=== PATIENT | male | born 1945 | race Caucasian/White ===

== ENCOUNTER 2018-03-30 07:38 | Day surgery (SDC) | payer MEDICARE, BC ==
[2018-03-30] MEDS ORDERED: DIPRIVAN 200 MG/20 ML IV ONE (07:39)
[2018-03-30] MEDS ORDERED: Lactated Ringers 1,000 ML IV ONE (07:47)
[2018-03-30] MEDS ORDERED: Lactated Ringers 1,000 ML IV SCH (08:00)
[2018-03-30] MEDS ORDERED: TETRACAINE 0.5% STERI-UNIT SOL OP ONE ×2 (08:00)
[2018-03-30] MEDS ORDERED: Ak-Dilate OPHTHALMIC*** 0.71 ML, Cyclogyl 1% OPHTH SOL 5 ML 0.71 ML, GATIFLOXACIN 0.5% ... OP ONE ×4 (08:00)
[2018-03-30 08:34] VITALS: O2SAT 93
[2018-03-30] MEDS ORDERED: Zofran 4 MG/2 ML VIAL IV PRN (09:00)
[2018-03-30] MEDS ORDERED: ACETAZOLAMIDE 250 MG TABLET PO ONE (09:00)
[2018-03-30] MEDS ORDERED: BSS 500 ML, Fortaz/Tazicef 1 GM** 0.2 G IO ONE ×2 (10:00)
[2018-03-30] MEDS ORDERED: Epinephrine Preservative Free 1 MG/ML INTRAOP ONE (10:00)
[2018-03-30] MEDS ORDERED: LIDOCAINE HCL 1% AMPUL 5 ML IJ ONE (10:00)
[2018-03-30] MEDS ORDERED: BETADINE 5% OPHTHALMIC 30 ML OP ONE (10:00)
[2018-03-30 12:39] VITALS: BP 154/95; PULSE 88
--- NOTE | 2018-03-30 14:46 | OP ---
DATE/TIME OF OPERATION: 03/30/2018 1100 TIME DICTATED: 1303 PREOPERATIVE DIAGNOSIS: Senile cataract of left eye. POSTOPERATIVE DIAGNOSIS: Senile cataract of left eye. SURGEON: Ross Hardwick MD INSURANCE SALES EXECUTIVE: None. OPERATION: Cataract extraction of left eye with an intraocular lens implant. STANDARD __X___ COMPLEX ANESTHESIA: MAC. ___X___ Monitored anesthesia care in combination with topical and intra-cameral anesthesia (because of the established specific risk of reflux, arrhythmias, or an anxiety attack associated with ocular manipulation as well as difficulty of the sweatband decorating machine operator to manage such potentially catastrophic events while simultaneously attempting to complete the surgical procedure, it was deemed necessary for the patient's safety to have an anesthesiologist or a nurse legal aid present during the procedure whenever possible. The anesthesiologist or the nurse legal aid was utilized to monitor and regulate the intravenous sedation of the patient, so the patient was cooperative, relaxed, and comfortable). Topical anesthesia using Tetracaine eye drops together with intra cameral anesthesia using Lidocaine 1% MPF. The nurse was utilized to monitor the patient. ANESTHESIA PROVIDER: Pato Nova CRNA. COMPLICATIONS: None. BLOOD LOSS: None. INDICATIONS: The patient is undergoing cataract surgery in the hopes of eliminating the visual complaints and difficulty. PROCEDURE: After arriving at the facility's outpatient surgery area, an IV was started; the patient was given 5 mg of p.o. Versed. (If an anesthesia provider was not monitoring the patient) The patient was then given topical anesthetic Tetracaine eye drops. A cotton pellet was soaked into a solution of a combination of Zymaxid 0.5%, Avinash-Synephrine 2.5% and Ocufen (other drops might have been substituted referenced in the patient's record). The pellet was inserted by the RN into the lower conjunctival cul-de-sac with a sterile forceps and left for 20 minutes. The pellet was then removed by the RN with a sterile forceps before taking the patient to the operating room. The preoperative area nurse identified the patient and marked the correct eye to be operated on. I identified the correct eye to be operated on and marked it appropriately in the outpatient surgery area. The patient was then taken into the operating room. Tetracaine eye drops were installed again in the correct eye. The eyelids and the lashes and the lid margins were scrubbed with Betadine solution. One drop of the diluted Betadine solution was placed in the conjunctival cul-de-sac for 45 seconds and then was irrigated. A drop of Tetracaine Gel was placed in the conjunctival cul-de-sac. The patient's forehead was taped to secure it during the procedure. The patient was monitored. The patient was then draped in the usual way for this procedure. An eye speculum was used to separate the eyelids. The eye was then fixated and a temporal 2.5 mm incision was made in the clear cornea temporally at the limbus. Through the incision, 0.25 cc of 1% non-preserved lidocaine was injected into the anterior chamber for intracameral anesthesia. The anterior chamber was then filled with viscoelastic. The pupil was small. I felt that it would be safer to mechanically dilate the pupil. A Malyugin ring was used at this point which dilated the pupil. That was removed at the end of the procedure prior to aspiration of the viscoelastic from the anterior chamber and posterior to the intraocular lens implant. The cataract had a great amount of cortical changes. That rendered seeing the anterior capsule difficult for a safe performance of an anterior capsulotomy. I injected an air bubble into the anterior chamber. I then injected 1 ML of vision blue solution into the anterior chamber. The vision blue solution was irrigated from the anterior chamber after 30 seconds. The anterior capsule was stained which facilitated performing the anterior capsulotomy safely. After that was completed, a cystotome was introduced into the anterior chamber and a round anterior capsulotomy was performed. The capsule was removed by a forceps. Hydrodissection was next carried utilizing a 25-gauge cannula and balanced salt solution to delineate the cortical material from the capsule and the nucleus from the cortical material. The nucleus was rotated freely into the capsular bag with no difficulty. The phaco tip of the [employer] Phacoemulsifier was introduced into the anterior chamber and two grooves were made into the nucleus 90 degrees apart. Using two spatulas resulted into the nucleus being fractured into four quadrants. The phaco tip was then used to remove each quadrant of the nucleus. Viscoelastic was used during this process to protect the corneal endothelium. Once the entire nucleus was removed, the phaco tip then was removed and the irrigation tip was introduced into the eye and the cortex was removed. The posterior capsule was polished. It was noticed that there was a tear into the posterior capsule with few vitreous strands into the pupil plan. An anterior vitrectomy was performed. A 16.50 diopter, SN60WF, posterior chamber lens implant, was inspected and found to be grossly normal. The implant was inserted into the implant injector cartridge; Viscoelastic again was introduced into the anterior chamber, which filled the capsular bag. The implant injector's cartridge tip was placed at the limbal wound and the posterior chamber implant was released into the capsular bag and rotated appropriately. The implant was found to be into the capsular bag and it was centered. __X___ 0.2 ml of Tri-Moxi was introduced via 27 gauge cannula into the vitreous cavity through the ciliary processes. Viscoelastic was aspirated from the anterior chamber and posterior to the intraocular lens implant from the capsular bag using the irrigating tip. The anterior chamber was irrigated and filled with 5 cc antibiotic solution (500 cc of BSS plus 2 ml of Fortaz 100 mg/ml) ( if patient was not allergic to the medication). The lips of the corneal incision were hydrated using BSS solution. The anterior chamber was checked and found to be water tight. One drop each of antibiotic, steroid and NSAID drops (refer to chart for drops used) were placed in the conjunctival cul-de-sac of the operated eye. Patient tolerated the procedure quite well and left the operating room in satisfactory condition. DISCHARGE SUMMARY: The patient was released in stable condition. The patient and those with the patient were given an instruction sheet as of how to care for the eye after surgery as well as counseling on any abnormal laboratory studies by the postoperative RN. The patient was also given an appointment card for follow-up in the office and is to call immediately for any difficulties including but not limited to pain in the eye, decreased vision, discharge from the eye, headache and or fever. DISCHARGE DIAGNOSIS: Pseudophakia of left eye.
== END 2018-03-30 12:30 | disposition home or self-care (01) ==
LOC: SDC 07:38
PROVIDERS: ATTEND Ophthalmology
DX: I50.9 Heart failure, unspecified (principal); J44.9 Chronic obstructive pulmonary disease, unspecified; I51.9 Heart disease, unspecified; E78.00 Pure hypercholesterolemia, unspecified; Z79.899 Other long term (current) drug therapy
CPT/HCPCS: 66984; 67005; 94250; C1780; 99100; J0171; J2704; A9270-GY

== ENCOUNTER 2018-04-27 07:23 | Day surgery (SDC) | payer MEDICARE, BC ==
[~2018-04-27 07:23] MED LIST: Lactated Ringers 1,000 ML IV ONE
[2018-04-27] MEDS ORDERED: DIPRIVAN 200 MG/20 ML IV ONE (07:24)
[2018-04-27] MEDS ORDERED: TETRACAINE 0.5% STERI-UNIT SOL OP ONE ×2 (08:00)
[2018-04-27] MEDS ORDERED: Lactated Ringers 1,000 ML IV SCH (08:00)
[2018-04-27] MEDS ORDERED: Ak-Dilate OPHTHALMIC*** 0.71 ML, Cyclogyl 1% OPHTH SOL 5 ML 0.71 ML, GATIFLOXACIN 0.5% ... OP ONE ×4 (08:00)
[2018-04-27] MEDS ORDERED: BETADINE 5% OPHTHALMIC 30 ML OP ONE (09:00)
[2018-04-27] MEDS ORDERED: Zofran 4 MG/2 ML VIAL IV PRN (09:00)
[2018-04-27] MEDS ORDERED: ACETAZOLAMIDE 250 MG TABLET PO ONE (09:00)
[2018-04-27] MEDS ORDERED: Epinephrine Preservative Free 1 MG/ML INTRAOP ONE (09:30)
[2018-04-27] MEDS ORDERED: BSS 500 ML, Fortaz/Tazicef 1 GM** 0.2 G IO ONE ×2 (09:30)
[2018-04-27] MEDS ORDERED: LIDOCAINE HCL 1% AMPUL 5 ML IJ ONE (09:30)
[2018-04-27 11:50] VITALS: PULSE 82
[2018-04-27 11:51] VITALS: BP 168/88; O2SAT 98
--- NOTE | 2018-04-27 13:46 | OP ---
DATE/TIME OF OPERATION: 04/27/2018 0954 TIME DICTATED: 1255 PREOPERATIVE DIAGNOSIS: Senile cataract of right eye. POSTOPERATIVE DIAGNOSIS: Senile cataract of right eye. SURGEON: Ross Hardwick MD CRIMINAL INTELLIGENCE ANALYST: None. OPERATION: Cataract extraction of right eye with an intraocular lens implant. STANDARD __X___ COMPLEX ANESTHESIA: MAC. ___X__ Monitored anesthesia care in combination with topical and intra-cameral anesthesia (because of the established specific risk of reflux, arrhythmias, or an anxiety attack associated with ocular manipulation as well as difficulty of the superintendent distribution to manage such potentially catastrophic events while simultaneously attempting to complete the surgical procedure, it was deemed necessary for the patient's safety to have an anesthesiologist or a nurse crate repairer present during the procedure whenever possible. The anesthesiologist or the nurse crate repairer was utilized to monitor and regulate the intravenous sedation of the patient, so the patient was cooperative, relaxed, and comfortable). Topical anesthesia using Tetracaine eye drops together with intra cameral anesthesia using Lidocaine 1% MPF. The nurse was utilized to monitor the patient. ANESTHESIA PROVIDER: Darin Mancilla CRNA. COMPLICATIONS: None. BLOOD LOSS: None. INDICATIONS: The patient is undergoing cataract surgery in the hopes of eliminating the visual complaints and difficulty. PROCEDURE: After arriving at the facility's outpatient surgery area, an IV was started; the patient was given 5 mg of p.o. Versed. (If an anesthesia provider was not monitoring the patient) The patient was then given topical anesthetic Tetracaine eye drops. A cotton pellet was soaked into a solution of a combination of Zymaxid 0.5%, Avinash-Synephrine 2.5% and Ocufen (other drops might have been substituted referenced in the patient's record). The pellet was inserted by the RN into the lower conjunctival cul-de-sac with a sterile forceps and left for 20 minutes. The pellet was then removed by the RN with a sterile forceps before taking the patient to the operating room. The preoperative area nurse identified the patient and marked the correct eye to be operated on. I identified the correct eye to be operated on and marked it appropriately in the outpatient surgery area. The patient was then taken into the operating room. Tetracaine eye drops were installed again in the correct eye. The eyelids and the lashes and the lid margins were scrubbed with Betadine solution. One drop of the diluted Betadine solution was placed in the conjunctival cul-de-sac for 45 seconds and then was irrigated. A drop of Tetracaine Gel was placed in the conjunctival cul-de-sac. The patient's forehead was taped to secure it during the procedure. The patient was monitored. The patient was then draped in the usual way for this procedure. An eye speculum was used to separate the eyelids. The eye was then fixated and a temporal 2.5 mm incision was made in the clear cornea temporally at the limbus. Through the incision, 0.25 cc of 1% non-preserved lidocaine was injected into the anterior chamber for intracameral anesthesia. The anterior chamber was then filled with viscoelastic. The pupil was small. I felt that it would be safer to mechanically dilate the pupil. A Malyugin ring was used at this point which dilated the pupil. That was removed at the end of the procedure prior to aspiration of the viscoelastic from the anterior chamber and posterior to the intraocular lens implant. The cataract had a great amount of cortical changes. That rendered seeing the anterior capsule difficult for a safe performance of an anterior capsulotomy. I injected an air bubble into the anterior chamber. I then injected 1 ML of vision blue solution into the anterior chamber. The vision blue solution was irrigated from the anterior chamber after 30 seconds. The anterior capsule was stained which facilitated performing the anterior capsulotomy safely. After that was completed, a cystotome was introduced into the anterior chamber and a round anterior capsulotomy was performed. The capsule was removed by a forceps. Hydrodissection was next carried utilizing a 25-gauge cannula and balanced salt solution to delineate the cortical material from the capsule and the nucleus from the cortical material. The nucleus was rotated freely into the capsular bag with no difficulty. The phaco tip of the [employer] Phacoemulsifier was introduced into the anterior chamber and two grooves were made into the nucleus 90 degrees apart. Using two spatulas resulted into the nucleus being fractured into four quadrants. The phaco tip was then used to remove each quadrant of the nucleus. Viscoelastic was used during this process to protect the corneal endothelium. Once the entire nucleus was removed, the phaco tip then was removed and the irrigation tip was introduced into the eye and the cortex was removed. The posterior capsule was polished. It was noticed that there was a tear into the posterior capsule with few vitreous strands into the pupil plan. An anterior vitrectomy was performed. A 16.00 diopter, SN60WF, posterior chamber lens implant, was inspected and found to be grossly normal. The implant was inserted into the implant injector cartridge; Viscoelastic again was introduced into the anterior chamber, which filled the capsular bag. The implant injector's cartridge tip was placed at the limbal wound and the posterior chamber implant was released into the capsular bag and rotated appropriately. The implant was found to be into the capsular bag and it was centered. __X_ 0.2 ml of Tri-Moxi was introduced via 27 gauge cannula into the vitreous cavity through the ciliary processes. Viscoelastic was aspirated from the anterior chamber and posterior to the intraocular lens implant from the capsular bag using the irrigating tip. The anterior chamber was irrigated and filled with 5 cc antibiotic solution (500 cc of BSS plus 2 ml of Fortaz 100 mg/ml) ( if patient was not allergic to the medication). The lips of the corneal incision were hydrated using BSS solution. The anterior chamber was checked and found to be water tight. One drop each of antibiotic, steroid and NSAID drops (refer to chart for drops used) were placed in the conjunctival cul-de-sac of the operated eye. Patient tolerated the procedure quite well and left the operating room in satisfactory condition. DISCHARGE SUMMARY: The patient was released in stable condition. The patient and those with the patient were given an instruction sheet as of how to care for the eye after surgery as well as counseling on any abnormal laboratory studies by the postoperative RN. The patient was also given an appointment card for follow-up in the office and is to call immediately for any difficulties including but not limited to pain in the eye, decreased vision, discharge from the eye, headache and or fever. DISCHARGE DIAGNOSIS: Pseudophakia of right eye.
== END 2018-04-27 11:40 | disposition home or self-care (01) ==
LOC: SDC 07:23
PROVIDERS: ATTEND Ophthalmology
DX: H25.9 Unspecified age-related cataract (principal); I50.9 Heart failure, unspecified; J44.9 Chronic obstructive pulmonary disease, unspecified; I51.9 Heart disease, unspecified; E78.00 Pure hypercholesterolemia, unspecified; I10 Essential (primary) hypertension; E07.9 Disorder of thyroid, unspecified; Z79.899 Other long term (current) drug therapy
CPT/HCPCS: 66984; 67005; 82962; 94250; C1780; 99100; J0171; J2704; A9270-GY

== ENCOUNTER 2021-06-21 10:14 | Inpatient (IN) | payer MEDICARE, BC ==
--- NOTE | 2021-06-21 10:32 | ERPHSYRPT ---
- History of Present Illness Time Seen by Provider: 06/21/21 10:29 Historian: patient Exam Limitations: clinical condition Patient Subjective Stated Complaint: EMS states "He is normally alert and talkative, today he is not, he had blood in his stool last night and a nose bleed this morning." Triage Nursing Assessment: Pt presented alert and oriented < 3, skin pale, pt alert X 2. PT knows his name and where he is but not what month it is. Pt l ethargic, able to speak in clear partial sentences. Physician History: Patient is a 76-year-old male who presents with a history from the senior care of having a large bloody bowel movement last night and then he had epistaxis this morning which has stopped. He is also been very confused over his baseline. He does have a previous history of a CVA. His only medication that would possible be considered a anticoagulant is Plavix which was held last night. Timing/Duration: yesterday Activities at Onset: none Modifying Factors: Improves With: defecating Allergies/Adverse Reactions: polyurethane Allergy (Severe, Uncoded 04/14/18 15:47) Rash raw apples Allergy (Severe, Uncoded 04/14/18 15:47) paralysis neoprene Allergy (Intermediate, Uncoded 04/14/18 15:47) rash tb tests Allergy (Intermediate, Uncoded 04/27/18 08:17) bee stings Allergy (Unknown, Uncoded 04/27/18 08:17) Home Medications: Acetaminophen [Acetaminophen Extra Strength] 1,000 mg PO Q4HPRN PRN 11/02/12 [History] Allopurinol 300 mg [Zyloprim 300 mg] 300 mg PO DAILY 11/02/12 [History] Aspirin EC 325 mg [Ecotrin 325 MG] 325 mg PO DAILY 11/02/12 [History] Budesonide/Formoterol Fumarate [Symbicort 160-4.5 Mcg Inhaler] 2 puff IH BID 11/02/12 [History] Clopidogrel Bisulfate 75 mg [PLAVIX 75 MG Tablet] 75 mg PO DAILY 11/02/12 [History] Docusate Sodium 100 mg [Colace 100 MG] 100 mg PO TID 11/02/12 [History] Fenofibrate,Micronized [Tricor] 134 mg PO DAILY 11/02/12 [History] Folic Acid 1 mg [Folate 1 mg] 1 mg PO DAILY 11/02/12 [History] Guaifenesin Dextromethorphan [MUCINEX Dm 600/30MG] 1 tablet PO HS 11/02/12 [History] Isosorbide Mononitrate 60 mg [Imdur 60MG] 60 mg PO BID 11/02/12 [History] Modafinil [Provigil] 200 mg PO QAM 11/02/12 [History] Ono-3/Dha/Epa/Fish Oil [Fish Oil 1,000 mg Softgel] 1 each PO TID 11/02/12 [History] Potassium Chloride 20 Meq [Klor-Con 20 MEQ] 20 meq PO BID 11/02/12 [History] Primidone [Mysoline] 100 mg PO TID 11/02/12 [History] Repaglinide [Prandin 2MG Tablet] 2 mg PO TID 11/02/12 [History] Sertraline HCl [Zoloft] 100 mg PO BID 11/02/12 [History] Sulfasalazine [Azulfidine] 1,500 mg PO BID 11/02/12 [History] Atorvastatin Calcium 80 mg PO HS 03/17/18 [History] Bumetanide 2 mg PO BID 03/17/18 [History] Cyanocobalamin (Vitamin B-12) [Vitamin B-12] 1,000 mcg PO DAILY 03/17/18 [ History] Levothyroxine Sodium 75 Mcg [Synthroid 75 Mcg] 75 mcg PO DAILY 03/17/18 [History] Loratadine 10 mg [Claritin 10 mg] 10 mg PO DAILY 03/17/18 [History] Metolazone 2.5 mg [Zaroxolyn 2.5 MG] 2.5 mg PO UD 03/17/18 [History] Metoprolol Tartrate 25 mg [Lopressor 25MG Tab] 25 mg PO BID 03/17/18 [History] Nitroglycerin 0.4 mg (Ed) [Nitrostat 0.4 MG (ED)] 0.4 mg SL UD 03/17/18 [History] Oxybutynin Chloride 5 mg PO TID 03/17/18 [History] Tamsulosin HCl 0.4 mg [Flomax 0.4 MG] 0.4 mg PO DAILY 03/17/18 [History] Glipizide 5 mg [Glucotrol 5 MG] 1 tablet PO BID 04/27/18 [History] Cholecalciferol (Vitamin D3) [Vitamin D] 1,000 unit PO DAILY 05/16/21 [Hist ory] Fluticasone Propionate [Flonase NASAL] 16 gm NS DAILY 05/16/21 [History] Lorazepam 0.5 mg [Ativan 0.5 MG] 0.5 mg PO BID 05/16/21 [History] Mineral Oil/Petrolatum,White [[facility] Overnight Lubricating Eye] 3.5 gm OP HS 05/16/21 [History] Omeprazole 20 mg PO DAILY 05/16/21 [History] Propylene Glycol/Peg 400 [[facility] Lubricating Tears Eye Drops] 15 ml OP UD 05/16/21 [History] Psyllium Seed [Psyllium] 390 gm PO DAILY 05/16/21 [History] Testosterone Cypionate [Depo-Testosterone] 200 mg IM UD 05/16/21 [History] Hx Tetanus, Diphtheria Vaccination/Date Given: Yes (UP TO DATE) Hx Influenza Vaccination/Date Given: No Hx Pneumococcal Vaccination/Date Given: No Immunizations Up to Date: Yes Travel Risk - International Travel Have you traveled outside of the country in past 3 weeks: No - Coronavirus Screening Are you exhibiting any of the following symptoms?: No Close contact with a COVID-19 positive Pt in past 14-21 Days: No - Vaccine Status Have you recieved a Covid-19 vaccination: (unknown) - Review of Systems Constitutional: No Fever, No Chills Eyes: No Symptoms Ears, Nose, & Throat: Epistaxis Respiratory: No Cough, No Dyspnea Cardiac: No Chest Pain, No Edema, No Syncope Abdominal/Gastrointestinal: Hematochezia, No Abdominal Pain, No Nausea, No Vo miting, No Diarrhea Genitourinary Symptoms: No Dysuria Musculoskeletal: No Back Pain, No Neck Pain Skin: No Rash Neurological: No Dizziness, No Focal Weakness, No Sensory Changes Psychological: No Symptoms Endocrine: No Symptoms All Other Systems: Reviewed and Negative - Past Medical History Pertinent Past Medical History: Yes Neurological History: Stroke ENT History: Cataracts Cardiac History: Arrhythmia, Congestive Heart Failure, Coronary Artery Disease, Deep Vein Thrombosis, High Cholesterol, Hypertension, Myocardial Infarction ([place]), Other Respiratory History: Asthma, CHF, COPD, Emphysema, Sleep Apnea Endocrine Medical History: Diabetes Type I, Diabetes Type II, Hypothyroidism Musculoskeletal History: Arthritis, Osteoarthritis GI Medical History: Crohns Disease, Diverticulitis, GERD History: Other Psycho-Social History: Anxiety Male Reproductive Disorders: Other Other Medical History: ruptured aorta during PTCA. DVT in s, Occassional PVC's Pt has sleep apnea but doesn't wear his cpap. Pt wears 4L n/c at night. NIDDM.Pt checks his blood sugar every 2-3 days. - Past Surgical History Past Surgical History: Yes Neuro Surgical History: No Pertinent History Cardiac: Angioplasty, Cardiac Catheterization, Cardiac Stent, Vascular Surgery, Other Respiratory: No Pertinent History Gastrointestinal: No Pertinent History Genitourinary: No Pertinent History Musculoskeletal: Amputation Male Surgical History: No Pertinent History Other Surgical History: [facility] Right carotid endartectomy, PTCA, Ruptured aorta, [place] when aorta ruptured and pt also had a stroke at that time in 1995 Pt has had 17 minor and major surgeries to his left leg prior to his amputation. Hx of skin cancer to left elbow. Pt has had 3 cardiac stents placed at 3 different times for a total of 9 cardiac stents. Cataract surgery left eye - Social History Smoking Status: Never smoker How long have you smoked: 3 years Exposure to second hand smoke: No Drug Use: none Patient Lives Alone: No - Nursing Vital Signs Nursing Vital Signs: Initial Vital Signs Temperature 97.8 F 06/21/21 10:15 Pulse Rate 98 H 06/21/21 10:15 Respiratory Rate 20 06/21/21 10:15 Blood Pressure 113/62 06/21/21 10:15 O2 Sat by Pulse Oximetry 98 06/21/21 10:15 Pain Scale Pain Intensity 4 - Physical Exam General Appearance: mild distress, alert Eye Exam: PERRL/EOMI, eyes nml inspection Ears, Nose, Throat Exam: normal ENT inspection, pharynx normal, moist mucous membranes Neck Exam: normal inspection, non-tender, supple, full range of motion Respiratory Exam: normal breath sounds, lungs clear, No respiratory distress Cardiovascular Exam: regular rate/rhythm, normal heart sounds Gastrointestinal/Abdomen Exam: soft, No tenderness, No mass Back Exam: normal inspection, normal range of motion, No CVA tenderness, No vertebral tenderness Extremity Exam: normal inspection, normal range of motion, pelvis stable Neurologic Exam: alert, cooperative, normal mood/affect, nml cerebellar function, sensation nml, disoriented, confusion, dysarthria, No motor deficits Skin Exam: normal color, warm, dry SpO2 Interpretation: normal SpO2: 98 O2 Delivery: Room Air - Course Nursing assessment & vital signs reviewed: Yes EKG Interpreted by Me: RATE (96), Sinus Rhythm, Right Bundle Branch Block, Non- specific ST Changes - Radiology Exams Chest X-ray Interpretation: Reviewed by me - CT Exams Abdomen/Pelvis CT Interpretation: Tele-radiologist Report Head CT Interpretation: Other (Nonacute senile brain) Ordered Tests: Active Orders 24 hr Category Date Time Status EKG-ER Only STAT Care 06/21/21 10:20 Active Scott [Catheter-[place] Scott] STAT Care 06/21/21 10:42 Active IV Insertion STAT Care 06/21/21 10:17 Active ABDOMEN AND PELVIS W/0 CONTRAS [CT] Stat Exams 06/21/21 10:18 Completed CHEST 1 VIEW (PORTABLE) Stat Exams 06/21/21 10:18 Completed HEAD WITHOUT CONTRAST [CT] Stat Exams 06/21/21 10:27 Completed AMYLASE Stat Lab 06/21/21 10:34 Completed CBC W DIFF Stat Lab 06/21/21 10:34 Completed CMP Stat Lab 06/21/21 10:34 Completed CULTURE,URINE Stat Lab 06/21/21 10:43 Received FECAL OCCULT BLOOD - SCREENING Stat Lab 06/21/21 10:18 Ordered LIPASE Stat Lab 06/21/21 10:34 Completed Lactic Acid Stat Lab 06/21/21 10:17 Completed PROTIME WITH INR Stat Lab 06/21/21 10:34 Completed PTT Stat Lab 06/21/21 10:34 Completed TROPONIN Q3H Lab 06/21/21 10:34 Completed TROPONIN Q3H Lab 06/21/21 13:30 Ordered TROPONIN Q3H Lab 06/21/21 16:30 Ordered TROPONIN Q3H Lab 06/21/21 19:30 Ordered TROPONIN Q3H Lab 06/21/21 22:30 Ordered TSH [TSH, 3RD Generation] Stat Lab 06/21/21 10:34 Completed UA W/RFX UR CULTURE Stat Lab 06/21/21 10:43 Completed Medication Summary Generic Name Dose Route Start Last Admin Trade Name Gabe PRN Reason Stop Dose Admin Sodium Chloride 1,000 mls @ 100 mls/hr 06/21/21 10:30 06/21/21 10:37 Sodium Chloride 0.9% 1000 Ml IV 07/21/21 10:29 100 mls/hr .Q10H MIN Administration Lab/Rad Data: Laboratory Result Diagrams 06/21/21 10:34 06/21/21 10:34 Laboratory Results 06/21/21 06/21/21 06/21/21 Range/Units 10:43 10:34 10:34 WBC (4.0-10.5) K/mm3 RBC (4.1-5.6) M/mm3 Hgb (12.5-18.0) gm/dl Hct (42-50) % MCV (78-100) fl MCH (26-32) pg MCHC (32-36) g/dl RDW (11.5-14.0) % Plt Count (150-450) K/mm3 MPV (7.5-11.0) fl Gran % (36.0-66.0) % Eos # (Auto) (0-0.5) Absolute Lymphs (auto) (1.0-4.6) Absolute Monos (auto) (0.0-1.3) Lymphocytes % (24.0-44.0) % Monocytes % (0.0-12.0) % Eosinophils % (0.00-5.0) % Basophils % (0.0-0.4) % Absolute Granulocytes (1.4-6.9) Basophils # (0-0.4) PT (9.4-12.5) SECONDS INR (0.8-3.0) APTT (25.1-36.5) SECONDS Sodium (137-145) mmol/L Potassium (3.5-5.1) mmol/L Chloride (98-107) mmol/L Carbon Dioxide (22-30) mmol/L Anion Gap (5-15) MEQ/L BUN (9-20) mg/dL Creatinine (0.66-1.25) mg/dL Estimated GFR ML/MIN Glucose (74-106) mg/dL Lactic Acid (0.4-2.0) Calcium (8.4-10.2) mg/dL Total Bilirubin (0.2-1.3) mg/dL AST (17-59) U/L ALT (0-50) U/L Alkaline Phosphatase (38-126) U/L Troponin I 0.098 H* (0.000-0.034) ng/mL Serum Total Protein (6.3-8.2) g/dL Albumin (3.5-5.0) g/dL Amylase (30-110) U/L Lipase (23-300) U/L TSH 3rd Generation 2.480 (0.47-4.68) mIU/L Urine Color GEMA (YELLOW) Urine Appearance SLIGHTLY CLOUDY (CLEAR) Urine pH 5.0 (5-6) Ur Specific [place] 1.012 (1.005-1.025) Urine Protein 30 (Negative) Urine Ketones NEGATIVE (NEGATIVE) Urine Blood SMALL (0-5) Oc/ul Urine Nitrite POSITIVE (NEGATIVE) Urine Bilirubin NEGATIVE (NEGATIVE) Urine Urobilinogen NEGATIVE (0-1) mg/dL Ur Leukocyte Esterase TRACE (NEGATIVE) Urine WBC (Auto) 6-10 (0-5) /HPF Urine RBC (Auto) NONE (0-2) /HPF U Hyaline Cast (Auto) 11-25 (0-2) /LPF U Epithel Cells (Auto) NONE (FEW) /HPF Urine Bacteria (Auto) MODERATE (NEGATIVE) /HPF Granular Casts (Auto) 10-25 (NEGATIVE) /LPF Urine Mucus (Auto) SLIGHT (NEGATIVE) /HPF Urine Culture Reflexed YES (NO) Urine Glucose 50 (NEGATIVE) mg/dL 06/21/21 06/21/21 06/21/21 Range/Units 10:34 10:34 10:34 WBC (4.0-10.5) K/mm3 RBC (4.1-5.6) M/mm3 Hgb (12.5-18.0) gm/dl Hct (42-50) % MCV (78-100) fl MCH (26-32) pg MCHC (32-36) g/dl RDW (11.5-14.0) % Plt Count (150-450) K/mm3 MPV (7.5-11.0) fl Gran % (36.0-66.0) % Eos # (Auto) (0-0.5) Absolute Lymphs (auto) (1.0-4.6) Absolute Monos (auto) (0.0-1.3) Lymphocytes % (24.0-44.0) % Monocytes % (0.0-12.0) % Eosinophils % (0.00-5.0) % Basophils % (0.0-0.4) % Absolute Granulocytes (1.4-6.9) Basophils # (0-0.4) PT 19.8 H (9.4-12.5) SECONDS INR 1.68 (0.8-3.0) APTT 34.5 (25.1-36.5) SECONDS Sodium 130 L (137-145) mmol/L Potassium 3.4 L (3.5-5.1) mmol/L Chloride 85 L (98-107) mmol/L Carbon Dioxide 22 (22-30) mmol/L Anion Gap 25.9 H (5-15) MEQ/L BUN 111 H (9-20) mg/dL Creatinine 2.54 H (0.66-1.25) mg/dL Estimated GFR 26.4 ML/MIN Glucose 273 H (74-106) mg/dL Lactic Acid (0.4-2.0) Calcium 9.2 (8.4-10.2) mg/dL Total Bilirubin 0.70 (0.2-1.3) mg/dL AST 50 (17-59) U/L ALT 20 (0-50) U/L Alkaline Phosphatase 123 (38-126) U/L Troponin I (0.000-0.034) ng/mL Serum Total Protein 7.9 (6.3-8.2) g/dL Albumin 4.2 (3.5-5.0) g/dL Amylase 606 H (30-110) U/L Lipase 6714 H (23-300) U/L TSH 3rd Generation (0.47-4.68) mIU/L Urine Color (YELLOW) Urine Appearance (CLEAR) Urine pH (5-6) Ur Specific [place] (1.005-1.025) Urine Protein (Negative) Urine Ketones (NEGATIVE) Urine Blood (0-5) Oc/ul Urine Nitrite (NEGATIVE) Urine Bilirubin (NEGATIVE) Urine Urobilinogen (0-1) mg/dL Ur Leukocyte Esterase (NEGATIVE) Urine WBC (Auto) (0-5) /HPF Urine RBC (Auto) (0-2) /HPF U Hyaline Cast (Auto) (0-2) /LPF U Epithel Cells (Auto) (FEW) /HPF Urine Bacteria (Auto) (NEGATIVE) /HPF Granular Casts (Auto) (NEGATIVE) /LPF Urine Mucus (Auto) (NEGATIVE) /HPF Urine Culture Reflexed (NO) Urine Glucose (NEGATIVE) mg/dL 06/21/21 06/21/21 Range/Units 10:34 10:17 WBC 12.6 H (4.0-10.5) K/mm3 RBC 3.16 L (4.1-5.6) M/mm3 Hgb 11.0 L (12.5-18.0) gm/dl Hct 33.2 L (42-50) % MCV 105.1 H (78-100) fl MCH 34.8 H (26-32) pg MCHC 33.1 (32-36) g/dl RDW 13.8 (11.5-14.0) % Plt Count 253 (150-450) K/mm3 MPV 12.2 H (7.5-11.0) fl Gran % 84.3 H (36.0-66.0) % Eos # (Auto) 0.21 (0-0.5) Absolute Lymphs (auto) 1.00 (1.0-4.6) Absolute Monos (auto) 0.75 (0.0-1.3) Lymphocytes % 7.9 L (24.0-44.0) % Monocytes % 5.9 (0.0-12.0) % Eosinophils % 1.7 (0.00-5.0) % Basophils % 0.2 (0.0-0.4) % Absolute Granulocytes 10.63 H (1.4-6.9) Basophils # 0.02 (0-0.4) PT (9.4-12.5) SECONDS INR (0.8-3.0) APTT (25.1-36.5) SECONDS Sodium (137-145) mmol/L Potassium (3.5-5.1) mmol/L Chloride (98-107) mmol/L Carbon Dioxide (22-30) mmol/L Anion Gap (5-15) MEQ/L BUN (9-20) mg/dL Creatinine (0.66-1.25) mg/dL Estimated GFR ML/MIN Glucose (74-106) mg/dL Lactic Acid 1.8 (0.4-2.0) Calcium (8.4-10.2) mg/dL Total Bilirubin (0.2-1.3) mg/dL AST (17-59) U/L ALT (0-50) U/L Alkaline Phosphatase (38-126) U/L Troponin I (0.000-0.034) ng/mL Serum Total Protein (6.3-8.2) g/dL Albumin (3.5-5.0) g/dL Amylase (30-110) U/L Lipase (23-300) U/L TSH 3rd Generation (0.47-4.68) mIU/L Urine Color (YELLOW) Urine Appearance (CLEAR) Urine pH (5-6) Ur Specific [place] (1.005-1.025) Urine Protein (Negative) Urine Ketones (NEGATIVE) Urine Blood (0-5) Oc/ul Urine Nitrite (NEGATIVE) Urine Bilirubin (NEGATIVE) Urine Urobilinogen (0-1) mg/dL Ur Leukocyte Esterase (NEGATIVE) Urine WBC (Auto) (0-5) /HPF Urine RBC (Auto) (0-2) /HPF U Hyaline Cast (Auto) (0-2) /LPF U Epithel Cells (Auto) (FEW) /HPF Urine Bacteria (Auto) (NEGATIVE) /HPF Granular Casts (Auto) (NEGATIVE) /LPF Urine Mucus (Auto) (NEGATIVE) /HPF Urine Culture Reflexed (NO) Urine Glucose (NEGATIVE) mg/dL - Progress Progress: unchanged Discussed with : Michelle Will see patient in: hospital (full admit) - Departure Departure Disposition: Home Clinical Impression: Urinary tract infection, Chronic kidney disease, Altered mental status, Serum lipase elevation, Elevated troponin, Gastrointestinal bleeding, Epistaxis Condition: Critical Critical Care Time: Yes Critical Care Time(excluding separately billable procedures): Critical 30-74 mins (55) Referrals: NAVID RONQUILLO [Primary Care Provider] - Follow up/PCP as directed
[2021-06-21] MEDS: Sodium Chloride 0.9% 1000 ML 1,000 ML IV SCH ×2 (10:37→17:51)
[2021-06-21 10:53] LABS: INR 1.68 (0.8-3.0); PROTIME 19.8 SECONDS (9.4-12.5)
[2021-06-21 10:56] LABS: PTT 34.5 SECONDS (25.1-36.5)
[2021-06-21 10:56] LABS: Appearance SLIGHTLY CLOUDY (CLEAR); Bacteria MODERATE /HPF (NEGATIVE); Bilirubin NEGATIVE (NEGATIVE); Blood SMALL Ery/ul (0-5); Glucose 50 mg/dL (NEGATIVE); Ketones NEGATIVE (NEGATIVE); Leukocyte Esterase TRACE (NEGATIVE); Mucus SLIGHT /HPF (NEGATIVE); Nitrite POSITIVE (NEGATIVE); Protein,Urine Dip 30 (Negative); Specific Gravity 1.012 (1.005-1.025); Urobilinogen NEGATIVE mg/dL (0-1)
[2021-06-21 11:02] LABS: Absolute Neutrophil Ct (ANC) 10.63 (1.4-6.9); BASOPHIL % 0.2 % (0.0-0.4); Basophil (Absolute #) 0.02 (0-0.4); Eosinophil % 1.7 % (0.00-5.0); Eosinophil (Absolute #) 0.21 (0-0.5); Hematocrit 33.2 % (42-50); Lymphocytes % 7.9 % (24.0-44.0); Mean Cell Volume 105.1 fl (78-100); Mean Corpuscular Hemoglobin 34.8 pg (26-32); Mean Corpuscular Hgb Concent. 33.1 g/dl (32-36); Mean Platelet Volume 12.2 fl (7.5-11.0); Monocyte (Absolute #) 0.75 (0.0-1.3); Monocytes % 5.9 % (0.0-12.0); Neutrophil % 84.3 % (36.0-66.0); Platelet Count 253 K/mm3 (150-450); Red Blood Count 3.16 M/mm3 (4.1-5.6); Red Cell Distribution Width 13.8 % (11.5-14.0); White Blood Count 12.6 K/mm3 (4.0-10.5)
[2021-06-21 11:12] LABS: AMYLASE 606 U/L (30-110)
[2021-06-21 11:25] LABS: ALBUMIN 4.2 g/dL (3.5-5.0); ANION GAP 25.9 MEQ/L (5-15); BILIRUBIN,TOTAL 0.7 mg/dL (0.2-1.3); Calcium 9.2 mg/dL (8.4-10.2); Creatinine 1 2.54 mg/dL (0.66-1.25); EST GLOMERULAR FILTRATION RATE 26.4 ML/MIN; Potassium 3.4 mmol/L (3.5-5.1); Total Protein 7.9 g/dL (6.3-8.2)
[2021-06-21 11:29] LABS: LIPASE 6714 U/L (23-300)
--- NOTE | 2021-06-21 11:34 | XRAY ---
Indication: Altered mental status. Multiple contiguous axial images obtained through the head without contrast. Comparison: December 23, 2012. Again age-appropriate global atrophy with now mild periventricular degenerative micro-ischemia bilaterally. No acute intracranial hemorrhage, abnormal extra-axial fluid collection, or mass effect. Fourth ventricle is midline without hydrocephalus. Bony calvarium intact. Visualized paranasal sinuses and mastoid air cells are clear. Impression: Nonacute senile brain.
--- NOTE | 2021-06-21 11:35 | XRAY ---
Indication: Abdomen pain. UTI. Multiple contiguous axial images obtained through the abdomen and pelvis without contrast. Comparison: June 27, 2014. Patient's arms now produces mild Beam artifact. Lung bases now demonstrates moderate bibasilar subsegmental atelectasis/scarring. No focal infiltrate or effusion. Heart not enlarged. There is now mild left hemidiaphragm elevation. Noncontrasted stomach and bowel loops appear nonobstructed with normal appendix. Again mild diffuse scattered colonic fecal debris throughout and descending/sigmoid diverticulosis. Urinary bladder is empty with again Scott balloon catheter in situ. No free fluid/air. Remaining liver, gallbladder, pancreas, spleen, adrenal glands, kidneys, and ureters are unremarkable for noncontrast exam. Again moderate scattered aortoiliac calcifications without AAA. Osseous structures intact again with mild osteopenia, mild/moderate degenerative changes throughout the spine, and mild/moderate degenerative changes of both hips. Impression: 1. Beam artifact from patient's arms. 2. New mild left hemidiaphragm elevation. Phrenic nerve paralysis not completely excluded in the right clinical setting. 3. Again diffuse fecal stasis, colonic diverticulosis, Scott catheter in situ, and chronic bony findings.
--- NOTE | 2021-06-21 11:37 | XRAY ---
Indication: Abdomen pain. Comparison: November 02, 2012. Portable chest demonstrates new left base subsegmental atelectasis/scarring. Remaining heart and lungs unremarkable again with incidental CABG. Bony thorax intact again with osteopenia and degenerative changes.
[2021-06-21 11:54] LABS: ABO TYPING O; Antibody Screen NEGATIVE (NEGATIVE); RH TYPING POSITIVE
[2021-06-21] MEDS ORDERED: ROCEPHIN 1 Gm-D5w 50 ml Bag** 1 G/50 ML IVPB IV ONE ×2 (12:03→12:05)
[2021-06-21] MEDS ORDERED: Zofran 4 MG/2 ML VIAL IV PRN (12:05)
[2021-06-21] MEDS ORDERED: Sodium Chloride 0.9% 1000 ML 1,000 ML IV SCH (12:15)
[2021-06-21 12:57] LABS: INFLUENZA A NEGATIVE (NEGATIVE); INFLUENZA B NEGATIVE (NEGATIVE); RESPIRATORY SYNCTIAL VIRUS NEGATIVE (Negative); SARS-CoV-2 Xpert Express NEGATIVE (NEGATIVE)
[2021-06-21] MEDS ORDERED: TYLENOL 325 MG PO PRN (15:46)
[2021-06-21] MEDS ORDERED: Ativan 0.5 MG PO PRN (15:46)
[2021-06-21] MEDS ORDERED: NON-FORMULARY ITEM (Propylene Glycol/Peg 400 [Systane 0.3-0.4% Eye Drops] 15 ML Drops) OP PRN (15:46)
[2021-06-21] MEDS ORDERED: DARIFENACIN HYDROBROMIDE 15 MG PO PRN (15:46)
[2021-06-21] MEDS ORDERED: Nitrostat 0.4 MG (ED) SL SCH (16:00)
[2021-06-21] MEDS: AZULFIDINE 500 MG PO SCH ×2 (16:19→22:35)
[2021-06-21] MEDS: MYSOLINE 50MG PO SCH ×2 (16:19→22:31)
[2021-06-21] MEDS ORDERED: Nitrostat 0.4 MG Tablet SL PRN (16:19)
[2021-06-21] MEDS: Ditropan 5 MG PO SCH ×2 (16:19→22:33)
[2021-06-21] MEDS ORDERED: MEDICATION INTERVENTION MC SCH ×3 (17:15→17:30)
[2021-06-21] MEDS: Advair Hfa 115/21 Common canister IH SCH (17:32)
[2021-06-21] MEDS: ULTRAM 50 MG PO PRN (17:51)
[2021-06-21] MEDS ORDERED: NON-FORMULARY ITEM (Sertraline Hcl [Zoloft] 100 MG Tablet) PO SCH (22:00)
[2021-06-21] MEDS ORDERED: MINERAL OIL OP SCH (22:00)
[2021-06-21] MEDS ORDERED: [UNRECOGNIZED DRUG - OTHER] PO SCH (22:00)
[2021-06-21] MEDS ORDERED: FISH OIL PO SCH (22:00)
[2021-06-21] MEDS ORDERED: NON-FORMULARY ITEM (Potassium Chloride 20 Meq [Klor-Con 20 Meq] 20 MEQ Tab) PO SCH (22:00)
[2021-06-21] MEDS ORDERED: OMEGA PO SCH (22:00)
[2021-06-21] MEDS ORDERED: [UNRECOGNIZED DRUG - OTHER] OP SCH (22:00)
[2021-06-21] MEDS ORDERED: MODAFINIL 200 MG PO SCH (22:00)
[2021-06-21] MEDS ORDERED: EPA PO SCH (22:00)
[2021-06-21] MEDS ORDERED: REPAGLINIDE 2 MG PO SCH (22:00)
[2021-06-21] MEDS ORDERED: DHA PO SCH (22:00)
[2021-06-21] MEDS ORDERED: NON-FORMULARY ITEM (Budesonide/Formoterol Fumarate [Symbicort 160-4.5 Mcg Inhaler] 10.2 GM IH SCH (22:00)
[2021-06-21] MEDS ORDERED: PETROLATUM WHITE OP SCH (22:00)
[2021-06-21] MEDS ORDERED: NON-FORMULARY ITEM (Bumetanide [Bumetanide] 2 MG Tablet) PO SCH (22:00)
[2021-06-21] MEDS ORDERED: NON-FORMULARY ITEM (Atorvastatin Calcium [Atorvastatin Calcium] 80 MG Tablet) PO SCH (22:00)
[2021-06-21] MEDS: MUCINEX DM 600/30MG PO PRN (22:31)
[2021-06-21] MEDS: Klor Con 10 MEQ PO SCH (22:31)
[2021-06-21] MEDS: ZOLOFT 50 MG TABLET PO SCH (22:32)
[2021-06-21] MEDS: Glucotrol 5 MG PO SCH (22:32)
[2021-06-21] MEDS: ZOCOR 20MG PO SCH (22:32)
[2021-06-21] MEDS: Lopressor 25MG Tab PO SCH (22:33)
[2021-06-21] MEDS: BUMEX 1 MG PO SCH (22:33)
[2021-06-21] MEDS: FISH OIL 1,000 MG CAPSULE PO SCH (22:33)
[2021-06-21] MEDS: NON-FORMULARY BULK ITEM OP SCH (22:34)
[2021-06-21] MEDS: HUMALOG SQ PRN (22:35)
[2021-06-22 05:32] LABS: Absolute Neutrophil Ct (ANC) 8.67 (1.4-6.9); BASOPHIL % 0.1 % (0.0-0.4); Basophil (Absolute #) 0.01 (0-0.4); Eosinophil % 2.5 % (0.00-5.0); Eosinophil (Absolute #) 0.27 (0-0.5); Hematocrit 29.7 % (42-50); Hemoglobin 9.8 gm/dl (12.5-18.0); Lymphocyte (Absolute #) 1.09 (1.0-4.6); Lymphocytes % 10.1 % (24.0-44.0); Mean Cell Volume 105.7 fl (78-100); Mean Corpuscular Hemoglobin 34.9 pg (26-32); Mean Platelet Volume 12.2 fl (7.5-11.0); Monocyte (Absolute #) 0.72 (0.0-1.3); Monocytes % 6.7 % (0.0-12.0); Neutrophil % 80.6 % (36.0-66.0); Platelet Count 216 K/mm3 (150-450); Red Blood Count 2.81 M/mm3 (4.1-5.6); Red Cell Distribution Width 13.8 % (11.5-14.0); White Blood Count 10.8 K/mm3 (4.0-10.5)
[2021-06-22 06:02] LABS: ALBUMIN 3.6 g/dL (3.5-5.0); ANION GAP 20.1 MEQ/L (5-15); BILIRUBIN,TOTAL 0.7 mg/dL (0.2-1.3); Calcium 8.4 mg/dL (8.4-10.2); Creatinine 1 2.01 mg/dL (0.66-1.25); EST GLOMERULAR FILTRATION RATE 34.6 ML/MIN; Potassium 3.2 mmol/L (3.5-5.1); Total Protein 7.1 g/dL (6.3-8.2)
[2021-06-22] MEDS: Sodium Chloride 0.9% 1000 ML 1,000 ML IV SCH ×3 (08:55→18:58)
[2021-06-22] MEDS: Advair Hfa 115/21 Common canister IH SCH ×2 (09:00→20:25)
[2021-06-22] MEDS: Klor Con 10 MEQ PO SCH ×2 (09:54→21:30)
[2021-06-22] MEDS: Protonix 40MG Tablet PO SCH (09:54)
[2021-06-22] MEDS: VITAMIN D PO SCH (09:54)
[2021-06-22] MEDS: FOLATE 1 MG PO SCH (09:54)
[2021-06-22] MEDS: CLARITIN 10 MG PO SCH (09:54)
[2021-06-22] MEDS: Flomax 0.4 MG PO SCH (09:54)
[2021-06-22] MEDS: FISH OIL 1,000 MG CAPSULE PO SCH ×3 (09:55→21:29)
[2021-06-22] MEDS: Glucotrol 5 MG PO SCH ×2 (09:55→21:28)
[2021-06-22] MEDS: Lopressor 25MG Tab PO SCH ×2 (09:55→21:28)
[2021-06-22] MEDS: MYSOLINE 50MG PO SCH ×3 (09:55→21:30)
[2021-06-22] MEDS: SYNTHROID 75 MCG PO SCH (09:55)
[2021-06-22] MEDS: Imdur 60MG PO SCH (09:55)
[2021-06-22] MEDS: Ditropan 5 MG PO SCH ×3 (09:55→21:29)
[2021-06-22] MEDS: ZYLOPRIM 300 MG PO SCH (09:55)
[2021-06-22] MEDS: Tricor 145 MG PO SCH (09:56)
[2021-06-22] MEDS: ROCEPHIN 1 Gm-D5w 50 ml Bag** 1 G/50 ML IVPB IV SCH (09:56)
[2021-06-22] MEDS: Vitamin B-12 500 MCG PO SCH (09:56)
[2021-06-22] MEDS: AZULFIDINE 500 MG PO SCH ×3 (09:56→21:35)
[2021-06-22] MEDS: BUMEX 1 MG PO SCH ×2 (09:56→21:30)
[2021-06-22] MEDS: Flonase NASAL NS SCH (09:59)
[2021-06-22] MEDS ORDERED: NON-FORMULARY ITEM (Omeprazole [Omeprazole] 20 MG Tablet.Dr) PO SCH (10:00)
[2021-06-22] MEDS ORDERED: PLAVIX 75 MG Tablet PO SCH (10:00)
[2021-06-22] MEDS ORDERED: Zaroxolyn 2.5 MG PO SCH (10:00)
[2021-06-22] MEDS ORDERED: NON-FORMULARY ITEM (Cyanocobalamin (Vitamin B-12) [Vitamin B-12] 1,000 MCG Tablet) PO SCH (10:00)
[2021-06-22] MEDS ORDERED: Klor Con 10 MEQ PO ONE (10:15)
[2021-06-22] MEDS: HUMALOG SQ PRN ×2 (11:43→17:28)
[2021-06-22] MEDS: ZOCOR 20MG PO SCH (21:28)
[2021-06-22] MEDS: ZOLOFT 50 MG TABLET PO SCH (21:28)
[2021-06-22] MEDS: MUCINEX DM 600/30MG PO PRN (21:29)
[2021-06-22] MEDS: Provigil 100MG Tablet PO SCH (21:31)
[2021-06-22] MEDS: NON-FORMULARY BULK ITEM OP SCH (21:36)
[2021-06-23 06:00] LABS: Hematocrit 26.7 % (42-50); Hemoglobin 8.5 gm/dl (12.5-18.0); Mean Cell Volume 108.5 fl (78-100); Mean Corpuscular Hemoglobin 34.6 pg (26-32); Mean Corpuscular Hgb Concent. 31.8 g/dl (32-36); Mean Platelet Volume 11.7 fl (7.5-11.0); Platelet Count 189 K/mm3 (150-450); Red Blood Count 2.46 M/mm3 (4.1-5.6); Red Cell Distribution Width 14.2 % (11.5-14.0); White Blood Count 7.6 K/mm3 (4.0-10.5)
[2021-06-23 06:22] LABS: ANION GAP 19.1 MEQ/L (5-15); Calcium 7.7 mg/dL (8.4-10.2); Creatinine 1 1.73 mg/dL (0.66-1.25); EST GLOMERULAR FILTRATION RATE 41.1 ML/MIN; Potassium 3.1 mmol/L (3.5-5.1)
[2021-06-23] MEDS ORDERED: Sodium Chloride 0.9% 500 ML 500 ML IV ONE (08:06)
[2021-06-23] MEDS: Advair Hfa 115/21 Common canister IH SCH ×2 (08:36→19:18)
[2021-06-23] MEDS: Sodium Chloride 0.9% 1000 ML 1,000 ML IV SCH (09:26)
[2021-06-23] MEDS ORDERED: Lasix 20 MG/2 ML IV ONE (10:45)
[2021-06-23] MEDS: Vitamin B-12 500 MCG PO SCH (10:48)
[2021-06-23] MEDS: Klor Con 10 MEQ PO SCH ×2 (10:48→21:12)
[2021-06-23] MEDS: Protonix 40MG Tablet PO SCH (10:48)
[2021-06-23] MEDS: BUMEX 1 MG PO SCH ×2 (10:49→21:10)
[2021-06-23] MEDS: Ditropan 5 MG PO SCH ×3 (10:49→21:11)
[2021-06-23] MEDS: Tricor 145 MG PO SCH (10:49)
[2021-06-23] MEDS: VITAMIN D PO SCH (10:49)
[2021-06-23] MEDS: FISH OIL 1,000 MG CAPSULE PO SCH ×3 (10:50→21:11)
[2021-06-23] MEDS: Flomax 0.4 MG PO SCH (10:50)
[2021-06-23] MEDS: Glucotrol 5 MG PO SCH ×2 (10:50→21:11)
[2021-06-23] MEDS: ZYLOPRIM 300 MG PO SCH (10:51)
[2021-06-23] MEDS: FOLATE 1 MG PO SCH (10:52)
[2021-06-23] MEDS: Imdur 60MG PO SCH (10:52)
[2021-06-23] MEDS: CLARITIN 10 MG PO SCH (10:52)
[2021-06-23] MEDS: SYNTHROID 75 MCG PO SCH (10:52)
[2021-06-23] MEDS: AZULFIDINE 500 MG PO SCH ×3 (10:54→21:10)
[2021-06-23] MEDS: Flonase NASAL NS SCH (10:54)
[2021-06-23] MEDS: Lopressor 25MG Tab PO SCH ×2 (11:11→21:12)
[2021-06-23 11:40] LABS: ABO TYPING O; Antibody Screen NEGATIVE (NEGATIVE); RH TYPING POSITIVE
[2021-06-23 11:42] LABS: CROSS MATCH (PRBC) COMPATIBLE (COMPATIBLE)
[2021-06-23] MEDS: ROCEPHIN 1 Gm-D5w 50 ml Bag** 1 G/50 ML IVPB IV SCH (11:47)
[2021-06-23] MEDS: MYSOLINE 50MG PO SCH ×3 (11:54→21:12)
[2021-06-23] MEDS ORDERED: Lasix 20 MG/2 ML ONE (16:08)
[2021-06-23] MEDS ORDERED: Sodium Chloride 0.9% 1000 ML 1,000 ML ONE (16:17)
[2021-06-23] MEDS: Sodium Chloride 0.9% W/ 20 mEq KCl/LITER 1,000 ML IV SCH (19:54)
[2021-06-23] MEDS: ZOCOR 20MG PO SCH (21:12)
[2021-06-23] MEDS: Provigil 100MG Tablet PO SCH (21:12)
[2021-06-23] MEDS: ZOLOFT 50 MG TABLET PO SCH (21:13)
[2021-06-23] MEDS: HUMALOG SQ PRN (21:14)
[2021-06-23] MEDS: NON-FORMULARY BULK ITEM OP SCH (21:15)
[2021-06-24 00:01] LABS: Hematocrit 28.2 % (42-50); Hemoglobin 9.4 gm/dl (12.5-18.0)
[2021-06-24] MEDS: Sodium Chloride 0.9% W/ 20 mEq KCl/LITER 1,000 ML IV SCH ×3 (03:57→21:12)
[2021-06-24 05:15] LABS: Hematocrit 28.8 % (42-50); Hemoglobin 9.4 gm/dl (12.5-18.0); Mean Cell Volume 102.5 fl (78-100); Mean Corpuscular Hemoglobin 33.5 pg (26-32); Mean Corpuscular Hgb Concent. 32.6 g/dl (32-36); Mean Platelet Volume 11.4 fl (7.5-11.0); Platelet Count 165 K/mm3 (150-450); Red Blood Count 2.81 M/mm3 (4.1-5.6); Red Cell Distribution Width 17.1 % (11.5-14.0); White Blood Count 6.2 K/mm3 (4.0-10.5)
[2021-06-24 05:49] LABS: ANION GAP 14.6 MEQ/L (5-15); BILIRUBIN,TOTAL 0.6 mg/dL (0.2-1.3); Calcium 7.2 mg/dL (8.4-10.2); Creatinine 1 1.36 mg/dL (0.66-1.25); EST GLOMERULAR FILTRATION RATE 54.3 ML/MIN; Potassium 3.2 mmol/L (3.5-5.1); Total Protein 6.4 g/dL (6.3-8.2)
[2021-06-24] MEDS: Advair Hfa 115/21 Common canister IH SCH ×2 (07:10→18:30)
[2021-06-24] MEDS: ROCEPHIN 1 Gm-D5w 50 ml Bag** 1 G/50 ML IVPB IV SCH (08:56)
[2021-06-24] MEDS: SYNTHROID 75 MCG PO SCH (08:59)
[2021-06-24] MEDS: Imdur 60MG PO SCH (08:59)
[2021-06-24] MEDS: Vitamin B-12 500 MCG PO SCH (09:00)
[2021-06-24] MEDS: MYSOLINE 50MG PO SCH ×3 (09:00→21:13)
[2021-06-24] MEDS: Flomax 0.4 MG PO SCH (09:00)
[2021-06-24] MEDS: VITAMIN D PO SCH (09:00)
[2021-06-24] MEDS: BUMEX 1 MG PO SCH ×2 (09:00→21:12)
[2021-06-24] MEDS: Tricor 145 MG PO SCH (09:00)
[2021-06-24] MEDS: FISH OIL 1,000 MG CAPSULE PO SCH ×4 (09:00→21:13)
[2021-06-24] MEDS: FOLATE 1 MG PO SCH (09:01)
[2021-06-24] MEDS: Lopressor 25MG Tab PO SCH ×2 (09:01→21:15)
[2021-06-24] MEDS: Klor Con 10 MEQ PO SCH ×3 (09:01→21:14)
[2021-06-24] MEDS: Ditropan 5 MG PO SCH ×4 (09:01→21:15)
[2021-06-24] MEDS: ZYLOPRIM 300 MG PO SCH (09:01)
[2021-06-24] MEDS: CLARITIN 10 MG PO SCH (09:01)
[2021-06-24] MEDS: Protonix 40MG Tablet PO SCH (09:02)
[2021-06-24] MEDS: Flonase NASAL NS SCH (09:03)
[2021-06-24] MEDS: Glucotrol 5 MG PO SCH ×2 (09:27→17:14)
[2021-06-24] MEDS: AZULFIDINE 500 MG PO SCH ×4 (09:31→21:15)
--- NOTE | 2021-06-24 14:00 | CONS ---
CONSULT DATE: 06/22/2021 HISTORY: A 76-year-old gentleman who was in with some urinary tract infection and mental status changes. He had some blood in the bowel movement. It was maroon colored according to the family. PAST MEDICAL HISTORY: He has history of CVA, heart disease, diabetes, hypothyroidism, arthritis, history of Crohn's disease, congestive heart failure, coronary artery disease, history of deep vein thrombosis, hypercholesterolemia, hypertension, history of myocardial infarction in the past. PAST SURGICAL HISTORY: Ruptured aorta during PTCA in the past. He had deep vein thrombosis in the past. He had cardiac cath, coronary stents. Carotid endarterectomy in the past. Multiple surgeries as well as leg amputation in the past. Cataract surgeries in the past. MEDICATIONS: Prior to admission acetaminophen, allopurinol, aspirin, budesonide, clopidogrel, docusate, Fenofibrate, folic acid, guaifenesin, isosorbide mononitrate, Provigil, omega-3, potassium chloride, primidone, repaglinide, Zoloft, sulfasalazine, atorvastatin, bumetanide, cyanocobalamin, levothyroxine, loratadine, metolazone, metoprolol, nitroglycerin, oxybutynin, tamsulosin, glipizide, cholecalciferol, fluticasone nasal spray, lorazepam, mineral oil, omeprazole, propylene glycol, psyllium, Depo-Testosterone. ALLERGIES: TB TEST. NEOPRENE. POLYURETHANE. RAW APPLES. BEE STING. FAMILY HISTORY: Negative in regards to this problem. SOCIAL HISTORY: No smoking or alcohol abuse. REVIEW OF SYSTEMS: As noted per the admission assessment as he is quite somnolent but does open his eyes but does not participate long enough to get a complete review of system. Otherwise as noted per admission assessment, history and physical. PHYSICAL EXAMINATION: GENERAL: He denies any pain. He is sleepy but he denies any abdominal pain. A chronically ill gentleman quite somnolent but does open his eyes, will answer brief question. HEENT: Sclera nonicteric. NECK: No JVD. CHEST: Equal excursion, nonlabored breathing. CVS: Regular rate and rhythm. ABDOMEN: Soft, a little bit overweight. No rebound. No guarding. No peritoneal signs. EXTREMITIES: Amputation in the past. NEURO: He is quite somnolent, not really good exam at this time. IMPRESSION: A 76-year-old gentleman with multiple medical problems. He had been on some Plavix. He has had some mental status changes, urinary tract infection. He did have some blood in the bowel movement. Hemoglobin 9.8, white count 10, PLT count 214,000. It looks like he was set up to have endoscopy by Dr. Rodgers but I am not sure if that was completed. It looks like Dr. Rodgers dictated an H&P in May. He also had some dysphagia previously with some polyps in the past. He had a colonoscopy three years ago. He does not look like he could tolerate a bowel prep for colonoscopy at this time. The nurses said he is a little improved today versus yesterday. I will check with Dr. Oconnor to see if he is clearing up to consider a bowel prep. If so will need to have anesthesia evaluate the patient and consider if it could be on Thursday. If anesthesia does not feel comfortable having this procedure here with this patient, could consider transfer or bleeding scan in this frail gentleman. Right now he looks like he is high risk aspiration trying to do a bowel prep than benefit.
[2021-06-24] MEDS: Provigil 100MG Tablet PO SCH (21:13)
[2021-06-24] MEDS: ZOLOFT 50 MG TABLET PO SCH (21:13)
[2021-06-24] MEDS: Lubrifresh P.M. 3.5 gm Ointment OP SCH (21:15)
[2021-06-24] MEDS: ZOCOR 20MG PO SCH (21:16)
[2021-06-25] MEDS: Sodium Chloride 0.9% W/ 20 mEq KCl/LITER 1,000 ML IV SCH ×2 (05:08→17:23)
[2021-06-25 05:34] LABS: Hematocrit 29.9 % (42-50); Hemoglobin 9.7 gm/dl (12.5-18.0); Mean Cell Volume 104.2 fl (78-100); Mean Corpuscular Hemoglobin 33.8 pg (26-32); Mean Corpuscular Hgb Concent. 32.4 g/dl (32-36); Mean Platelet Volume 11.4 fl (7.5-11.0); Platelet Count 154 K/mm3 (150-450); Red Blood Count 2.87 M/mm3 (4.1-5.6); Red Cell Distribution Width 17.4 % (11.5-14.0); White Blood Count 5.8 K/mm3 (4.0-10.5)
[2021-06-25 05:50] LABS: ALBUMIN 3.1 g/dL (3.5-5.0); ALKALINE PHOSPHATASE 78 U/L (38-126); ANION GAP 14.6 MEQ/L (5-15); BLOOD UREA NITROGEN 32 mg/dL (9-20); CHLORIDE 101 mmol/L (98-107); Calcium 7.3 mg/dL (8.4-10.2); Carbon Dioxide 25 mmol/L (22-30); EST GLOMERULAR FILTRATION RATE > 60.0 ML/MIN; Glucose 119 mg/dL (74-106); Potassium 3.8 mmol/L (3.5-5.1); SGOT/AST 46 U/L (17-59); SGPT/ALT 15 U/L (0-50); SODIUM 136 mmol/L (137-145); Total Protein 6.3 g/dL (6.3-8.2)
[2021-06-25 06:59] LABS: ANISOCYTOSIS 1+; Eosinophil 2 % (0.00-3.0); Lymphocytes 22 % (24-44); Monocyte 2 % (0.0-12.0); Neutrophils 74 % (36.-66.); Nucleated Red Blood Cell 1 %; Poikilocytosis 1+; Total Cells Counted 100
[2021-06-25 07:00] LABS: Hypochromia 1+
[2021-06-25 07:03] LABS: Platelet Estimate NORMAL (NORMAL)
[2021-06-25] MEDS: Advair Hfa 115/21 Common canister IH SCH ×2 (07:27→18:40)
[2021-06-25] MEDS: Glucotrol 5 MG PO SCH ×2 (08:04→17:22)
[2021-06-25] MEDS: Lopressor 25MG Tab PO SCH ×2 (08:43→21:36)
[2021-06-25] MEDS: SYNTHROID 75 MCG PO SCH (08:43)
[2021-06-25] MEDS: FOLATE 1 MG PO SCH (08:43)
[2021-06-25] MEDS: MYSOLINE 50MG PO SCH ×3 (08:43→21:39)
[2021-06-25] MEDS: CLARITIN 10 MG PO SCH (08:43)
[2021-06-25] MEDS: Tricor 145 MG PO SCH (08:44)
[2021-06-25] MEDS: Klor Con 10 MEQ PO SCH ×4 (08:44→21:36)
[2021-06-25] MEDS: Protonix 40MG Tablet PO SCH (08:44)
[2021-06-25] MEDS: BUMEX 1 MG PO SCH ×2 (08:44→21:35)
[2021-06-25] MEDS: Imdur 60MG PO SCH (08:44)
[2021-06-25] MEDS: Flomax 0.4 MG PO SCH (08:44)
[2021-06-25] MEDS: VITAMIN D PO SCH (08:44)
[2021-06-25] MEDS: Ditropan 5 MG PO SCH ×3 (08:44→21:35)
[2021-06-25] MEDS: Flonase NASAL NS SCH (08:45)
[2021-06-25] MEDS: FISH OIL 1,000 MG CAPSULE PO SCH ×3 (08:45→21:35)
[2021-06-25] MEDS: ZYLOPRIM 300 MG PO SCH (08:45)
[2021-06-25] MEDS: AZULFIDINE 500 MG PO SCH ×3 (08:46→21:34)
[2021-06-25] MEDS: ROCEPHIN 1 Gm-D5w 50 ml Bag** 1 G/50 ML IVPB IV SCH (08:49)
[2021-06-25] MEDS: Vitamin B-12 500 MCG PO SCH (08:49)
[2021-06-25] MEDS ORDERED: Zaroxolyn 2.5 MG PO SCH (10:00)
[2021-06-25] MEDS ORDERED: Dopamine 400 MG/D5W 250ML PREMIX 250 ML IV PRN (12:15)
--- NOTE | 2021-06-25 15:42 | CONS ---
CONSULT DATE: 06/24/2021 HISTORY: This is a gentleman who we have been consulted on 06/24/2021 and presented the same day to see the patient. The consultation is due to GI bleed. On my arrival at bedside the patient is awake. He is alert and oriented at this time but he did have some confusion on his initial admission and these records have been reviewed. The patient "I didn't know I was sick". He said he was told he was bleeding and that why he got admitted to the hospital. He states he knows my partner, Dr. Terrence Rodgers, and that he had a colonoscopy with him in the distant past but he does not remember having a colonoscopy recently. He denies any abdominal pain. He does not know if he is bleeding or not. He said he was told he was. He does not have any dizziness or fatigue. His main complaint is that he had a catheter placed and outside of this he has no other complaint. PAST MEDICAL/SURGICAL HISTORY: Most significant for coronary artery disease. He has had myocardial infarction. He also had a stroke. He also has diabetes. He has had bypass surgery as well as a left below knee amputation. He has peripheral vascular disease. MEDICATIONS: His medications are reviewed and the most significant medications include his blood thinner, Plavix, aspirin and fish oil. ALLERGIES: HIS ALLERGIES ARE ALSO REVIEWED AND IN THE CHART. SOCIAL HISTORY: He is a resident of a nursing facility. FAMILY HISTORY: Noncontributory. PHYSICAL EXAMINATION: VITAL SIGNS: The patient is very stable. He is on the floor. GENERAL: No acute distress. CVS: Regular rate. PULMONARY: Nonlabored respirations. The patient is resting comfortably in bed. ABDOMEN: Soft. Nontender, nondistended, obese. EXTREMITIES: The patient is status post left below knee amputation which appears very well healed. RECTAL: The patient's rectal exam is very limited secondary to an extensive amount of stool that was encountered, some of this was able to be disimpacted but the patient does have quite a copious amount of stool and he is tender on rectal exam. I did not feel an obvious mass but again this exam is extremely limited due to the amount of stool here and the patient's discomfort and so I aborted this and we will plan for a better rectal exam when he does get his colonoscopy. Since it is uncomfortable for him to lay in this position as well as with the exam. The stool that was visualized was semi-formed. It was slightly dark in color. There was no bright blood. Hard to say if there was a small amount of dark blood mixed in but there was definitely no significant melena. LAB DATA AND TESTS: His laboratory studies, imaging studies and vital signs have been reviewed. The patient's hemoglobin appeared to have stabilized. He received 2 units per nursing and his hemoglobin was 11 and it [id number] down lower to 8. He went up to 9.4 and had stayed at 9.4. His initial white blood cell count was 12.6, PLT count 253,000. Creatinine 2.54. He is not having any significant active bleeding today per any report. ASSESSMENT AND PLAN: This is a gentleman who had a GI bleed that appears to be resolving and his hemoglobin is stabilizing. It is hard to say at this time where his source is. He could have an upper GI source or a lower GI source and I do think that an EGD and colonoscopy would be beneficial for this patient since he has stabilized. If he would like to do the procedure during this admission I would continue to hold his Plavix as that is a high risk for bleeding should we encounter anything that we may need to biopsy or remove during the procedure and if he would like to have this procedures as an outpatient, he may see us in the office and we will get him scheduled. I will discuss with my medication tech partner as well and we will continue to follow. The patient is currently on a liquid diet which he is tolerating well and he can advance this as tolerated as long as he has no active bleeding or drop in his hemoglobin. Thank you for the consultation.
[2021-06-25] MEDS: Lubrifresh P.M. 3.5 gm Ointment OP SCH (21:38)
[2021-06-25] MEDS: ZOLOFT 50 MG TABLET PO SCH (21:39)
[2021-06-25] MEDS: ZOCOR 20MG PO SCH (21:39)
[2021-06-26] MEDS: Sodium Chloride 0.9% W/ 20 mEq KCl/LITER 1,000 ML IV SCH ×4 (01:17→22:09)
[2021-06-26 05:42] LABS: Hematocrit 29.3 % (42-50); Hemoglobin 9.4 gm/dl (12.5-18.0); Mean Corpuscular Hemoglobin 33.7 pg (26-32); Mean Corpuscular Hgb Concent. 32.1 g/dl (32-36); Mean Platelet Volume 10.9 fl (7.5-11.0); Platelet Count 145 K/mm3 (150-450); Red Blood Count 2.79 M/mm3 (4.1-5.6); Red Cell Distribution Width 17.2 % (11.5-14.0); White Blood Count 5.4 K/mm3 (4.0-10.5)
[2021-06-26 05:58] LABS: ALBUMIN 3.3 g/dL (3.5-5.0); ALKALINE PHOSPHATASE 65 U/L (38-126); ANION GAP 10.9 MEQ/L (5-15); BLOOD UREA NITROGEN 20 mg/dL (9-20); CHLORIDE 99 mmol/L (98-107); Calcium 7.4 mg/dL (8.4-10.2); Carbon Dioxide 27 mmol/L (22-30); EST GLOMERULAR FILTRATION RATE > 60.0 ML/MIN; Glucose 120 mg/dL (74-106); Potassium 3.6 mmol/L (3.5-5.1); SGOT/AST 42 U/L (17-59); SGPT/ALT 15 U/L (0-50); SODIUM 133 mmol/L (137-145); Total Protein 6.7 g/dL (6.3-8.2)
[2021-06-26] MEDS: Advair Hfa 115/21 Common canister IH SCH ×2 (08:16→18:52)
[2021-06-26] MEDS: Glucotrol 5 MG PO SCH ×2 (09:46→16:33)
[2021-06-26] MEDS: Protonix 40MG Tablet PO SCH (09:47)
[2021-06-26] MEDS: Ditropan 5 MG PO SCH ×3 (09:47→22:12)
[2021-06-26] MEDS: MYSOLINE 50MG PO SCH ×3 (09:47→22:13)
[2021-06-26] MEDS: Imdur 60MG PO SCH (09:47)
[2021-06-26] MEDS: Provigil 100MG Tablet PO SCH (09:47)
[2021-06-26] MEDS: Lopressor 25MG Tab PO SCH ×2 (09:47→22:13)
[2021-06-26] MEDS: ZYLOPRIM 300 MG PO SCH (09:47)
[2021-06-26] MEDS: Vitamin B-12 500 MCG PO SCH (09:47)
[2021-06-26] MEDS: Tricor 145 MG PO SCH (09:48)
[2021-06-26] MEDS: FOLATE 1 MG PO SCH (09:48)
[2021-06-26] MEDS: FISH OIL 1,000 MG CAPSULE PO SCH ×3 (09:48→22:12)
[2021-06-26] MEDS: BUMEX 1 MG PO SCH ×2 (09:48→22:12)
[2021-06-26] MEDS: VITAMIN D PO SCH (09:48)
[2021-06-26] MEDS: Klor Con 10 MEQ PO SCH ×3 (09:48→22:13)
[2021-06-26] MEDS: CLARITIN 10 MG PO SCH (09:48)
[2021-06-26] MEDS: Flonase NASAL NS SCH (09:48)
[2021-06-26] MEDS: AZULFIDINE 500 MG PO SCH ×3 (09:49→22:12)
[2021-06-26] MEDS: SYNTHROID 75 MCG PO SCH (09:49)
[2021-06-26] MEDS: Flomax 0.4 MG PO SCH (09:49)
[2021-06-26] MEDS: ROCEPHIN 1 Gm-D5w 50 ml Bag** 1 G/50 ML IVPB IV SCH (09:51)
[2021-06-26] MEDS ORDERED: Golytely Solution 4000 ML PO ONE (14:00)
[2021-06-26] MEDS ORDERED: Sodium Chloride 3 ML UD NEBULES IH ONE (15:08)
[2021-06-26] MEDS: Sodium Chloride 0.9% 1000 ML 1,000 ML IV SCH (15:14)
[2021-06-26] MEDS: ULTRAM 50 MG PO PRN (20:24)
[2021-06-26] MEDS: Lubrifresh P.M. 3.5 gm Ointment OP SCH (22:13)
[2021-06-26] MEDS: ZOLOFT 50 MG TABLET PO SCH (22:14)
[2021-06-26] MEDS: ZOCOR 20MG PO SCH (22:14)
[2021-06-27 06:08] LABS: Hematocrit 29.5 % (42-50); Hemoglobin 9.6 gm/dl (12.5-18.0); Mean Cell Volume 103.5 fl (78-100); Mean Corpuscular Hemoglobin 33.7 pg (26-32); Mean Corpuscular Hgb Concent. 32.5 g/dl (32-36); Mean Platelet Volume 11.9 fl (7.5-11.0); Platelet Count 167 K/mm3 (150-450); Red Blood Count 2.85 M/mm3 (4.1-5.6); Red Cell Distribution Width 16.7 % (11.5-14.0); White Blood Count 6.4 K/mm3 (4.0-10.5)
[2021-06-27 06:46] LABS: ALBUMIN 3.4 g/dL (3.5-5.0); ALKALINE PHOSPHATASE 64 U/L (38-126); ANION GAP 14.6 MEQ/L (5-15); BLOOD UREA NITROGEN 12 mg/dL (9-20); CHLORIDE 99 mmol/L (98-107); Calcium 7.6 mg/dL (8.4-10.2); Carbon Dioxide 25 mmol/L (22-30); Creatinine 1 0.94 mg/dL (0.66-1.25); EST GLOMERULAR FILTRATION RATE > 60.0 ML/MIN; Glucose 94 mg/dL (74-106); Potassium 3.5 mmol/L (3.5-5.1); SGOT/AST 46 U/L (17-59); SGPT/ALT 16 U/L (0-50); SODIUM 135 mmol/L (137-145); Total Protein 6.9 g/dL (6.3-8.2)
[2021-06-27] MEDS: Advair Hfa 115/21 Common canister IH SCH ×2 (07:22→18:04)
[2021-06-27] MEDS: Sodium Chloride 0.9% W/ 20 mEq KCl/LITER 1,000 ML IV SCH (07:28)
[2021-06-27] MEDS: Glucotrol 5 MG PO SCH ×2 (08:44→18:37)
[2021-06-27] MEDS: Imdur 60MG PO SCH (09:08)
[2021-06-27] MEDS: ROCEPHIN 1 Gm-D5w 50 ml Bag** 1 G/50 ML IVPB IV SCH (09:08)
[2021-06-27] MEDS: VITAMIN D PO SCH (09:08)
[2021-06-27] MEDS: MYSOLINE 50MG PO SCH ×3 (09:08→21:28)
[2021-06-27] MEDS: Provigil 100MG Tablet PO SCH (09:08)
[2021-06-27] MEDS: FISH OIL 1,000 MG CAPSULE PO SCH ×3 (09:09→21:25)
[2021-06-27] MEDS: MUCINEX DM 600/30MG PO PRN ×2 (09:09→21:28)
[2021-06-27] MEDS: Tricor 145 MG PO SCH (09:10)
[2021-06-27] MEDS: FOLATE 1 MG PO SCH (09:10)
[2021-06-27] MEDS: CLARITIN 10 MG PO SCH ×2 (09:10→09:11)
[2021-06-27] MEDS: SYNTHROID 75 MCG PO SCH (09:10)
[2021-06-27] MEDS: ZYLOPRIM 300 MG PO SCH (09:10)
[2021-06-27] MEDS: Klor Con 10 MEQ PO SCH ×2 (09:10→21:29)
[2021-06-27] MEDS: Ditropan 5 MG PO SCH ×3 (09:10→21:30)
[2021-06-27] MEDS: Flomax 0.4 MG PO SCH (09:10)
[2021-06-27] MEDS: AZULFIDINE 500 MG PO SCH ×3 (09:11→21:33)
[2021-06-27] MEDS: Protonix 40MG Tablet PO SCH (09:11)
[2021-06-27] MEDS: Lopressor 25MG Tab PO SCH ×2 (09:11→21:31)
[2021-06-27] MEDS: Vitamin B-12 500 MCG PO SCH (09:11)
[2021-06-27] MEDS: Flonase NASAL NS SCH (09:14)
[2021-06-27] MEDS: BUMEX 1 MG PO SCH ×2 (09:29→21:32)
[2021-06-27] MEDS ORDERED: Sodium Chloride 0.9% 1000 ML 1,000 ML IV SCH (15:30)
[2021-06-27] MEDS ORDERED: DIPRIVAN 200 MG/20 ML IV ONE (16:41)
[2021-06-27] MEDS: HUMALOG SQ PRN (21:01)
[2021-06-27] MEDS: ZOCOR 20MG PO SCH (21:25)
[2021-06-27] MEDS: ZOLOFT 50 MG TABLET PO SCH (21:30)
[2021-06-27] MEDS: Lubrifresh P.M. 3.5 gm Ointment OP SCH ×2 (21:34→22:39)
[2021-06-28 03:49] VITALS: PULSE 82
--- NOTE | 2021-06-28 07:52 | OP ---
SURGERY DATE/TIME: 06/27/2021 1640 PREOPERATIVE DIAGNOSES: 1) Anemia. 2) GI bleed. POSTOPERATIVE DIAGNOSES: 1) The patient has 3 or 4 ounces of bilious gastric retention otherwise normal upper exam. 2) The patient had: 1) Severe sigmoid diverticulosis with focal stricture but it was able to be passed. 2) The patient had irrigation of the anorectal canal, which probably had been recently bleeding. PROCEDURE: 1) EGD. 2) Colonoscopy complete to cecum. SURGEON: Terrence Rodgers M.D. ANESTHESIA: MAC. COMPLICATIONS: None. CONDITION: Stable. INDICATION: A patient with anemia. He has not had any recent exam. He was actually scheduled as an outpatient but then he fell ill and has really done well. He is much better and he was able to take a bowel prep. DESCRIPTION OF PROCEDURE: He is taken to endoscopy. Left lateral decubitus position. Pharyngoesophageal junction normal. Esophagus normal down to gastroesophageal junction. Gastroesophageal junction satisfactory. No hiatal hernia. There was 4 ounces of bilious fluid suctioned. There is some sludge in this but there was no debris. There was no true bezoar. The outlet was open. Duodenal bulb was normal. The keyhole view was normal. The second portion of the duodenum normal. Scope withdrawn looped upon itself. Gastroesophageal junction satisfactory from below. There was insignificant post-inflammatory polyp (PIP). Anal digital examination was very loose. He had excoriation and he had some early pressure sore formation a little bit more prominent on the right. The scope introduced and advanced, advanced to the mid sigmoid about 40 cm and it was stuck here for a while. With care and patience, very light manipulation, the lumen was cannulated and after going through a segment of another 6 or 8 inches of diverticulosis this ended. Descending colon was satisfactory. The scope is passed across the transverse down the ascending. The ileocecal valve was clearly normal. There was some stool there that was suctioned and irrigated. The cecum, ascending, hepatic, transverse, splenic, descending normal. Severe diverticulosis of the sigmoid with some focal stricturing although it did not prohibit the scope from passing. The scope was just a hair smaller than the lumen. Rectum, anus there was excoriation of anorectal area. The patient tolerated the procedure satisfactorily. Findings discussed with the family in the waiting room.
[2021-06-28 08:25] VITALS: BP 143/76; O2SAT 98
[2021-06-28] MEDS: FISH OIL 1,000 MG CAPSULE PO SCH (10:10)
[2021-06-28] MEDS: Provigil 100MG Tablet PO SCH (10:10)
[2021-06-28] MEDS: VITAMIN D PO SCH (10:10)
[2021-06-28] MEDS: Vitamin B-12 500 MCG PO SCH (10:10)
[2021-06-28] MEDS: BUMEX 1 MG PO SCH (10:10)
[2021-06-28] MEDS: ZYLOPRIM 300 MG PO SCH (10:10)
[2021-06-28] MEDS: FOLATE 1 MG PO SCH (10:11)
[2021-06-28] MEDS: Protonix 40MG Tablet PO SCH (10:11)
[2021-06-28] MEDS: Lopressor 25MG Tab PO SCH (10:11)
[2021-06-28] MEDS: Klor Con 10 MEQ PO SCH (10:11)
[2021-06-28] MEDS: Imdur 60MG PO SCH (10:11)
[2021-06-28] MEDS: Tricor 145 MG PO SCH (10:11)
[2021-06-28] MEDS: Flomax 0.4 MG PO SCH (10:11)
[2021-06-28] MEDS: Glucotrol 5 MG PO SCH (10:11)
[2021-06-28] MEDS: SYNTHROID 75 MCG PO SCH (10:11)
[2021-06-28] MEDS: Ditropan 5 MG PO SCH (10:12)
[2021-06-28] MEDS: MYSOLINE 50MG PO SCH (10:12)
[2021-06-28] MEDS: AZULFIDINE 500 MG PO SCH (10:13)
[2021-06-28] MEDS: Flonase NASAL NS SCH (10:13)
--- NOTE | 2021-07-05 13:14 | PCM.HP ---
History of Present Illness - Chief Complaint Chief Complaint: UTI, AMS, CKD elevated lipase, elevated amylase, elevated t roponin Date: 06/22/21 History of Present Illness: is a 76 year old male. Pt. presented to ER after noting a decreased level of consciousness, after having several bloody stools and found to have a decreased hgb, of note the patient had a lowered level of consciousness and elevated amylase and lipase, upon my discussion with family this could be related to large bowel history of crohns colitis which could be etiology of GI bleed. Pt. only has a right leg, his left leg and recently admitted in for weakness after a fall and is currently in OR for strength/ rehabilitation. Pt. with chronic kidney disease along with heart strain causing elevated troponin. Pt. will be admitted to icu, anticoagulant medications stopped with consult to general surgery for colonoscopy to further evaluate the bleed. - Review of Systems Constitutional: Lethargy Eyes: No Symptoms Ears, Nose, & Throat: No Symptoms Respiratory: No Cough, No Short Of Breath Cardiac: No Chest Pain, No Edema, No Syncope Abdominal/Gastrointestinal: Abdominal Pain, Hematochezia, No Nausea, No Vomiting, No Diarrhea Genitourinary Symptoms: No Dysuria Musculoskeletal: No Back Pain, No Neck Pain Skin: No Rash Neurological: No Dizziness, No Focal Weakness, No Sensory Changes Psychological: No Symptoms Endocrine: No Symptoms Hematologic/Lymphatic: No Symptoms Immunological/Allergic: No Symptoms Medications & Allergies Home Medications: Home Medication List Allopurinol 300 mg [Zyloprim 300 mg] 300 mg PO DAILY 11/02/12 [History Confirmed 06/21/21] Aspirin EC 325 mg [Ecotrin 325 MG] 325 mg PO DAILY 11/02/12 [History Confirmed 06/21/21] Budesonide/Formoterol Fumarate [Symbicort 160-4.5 Mcg Inhaler] 2 puff IH BID 11/02/12 [History Confirmed 06/21/21] Clopidogrel Bisulfate 75 mg [PLAVIX 75 MG Tablet] 75 mg PO DAILY 11/02/12 [History Confirmed 06/21/21] Folic Acid 1 mg [Folate 1 mg] 1 mg PO DAILY 11/02/12 [History Confirmed 06/21/21] Guaifenesin Dextromethorphan [MUCINEX Dm 600/30MG] 1 tablet PO HS PRN 11/02/12 [History Confirmed 06/21/21] Modafinil [Provigil] 200 mg PO HS 11/02/12 [History Confirmed 06/21/21] [place]-3/Dha/Epa/Fish Oil [Fish Oil 1,000 mg Softgel] 1 each PO TID 11/02/12 [History Confirmed 06/21/21] Potassium Chloride 20 Meq [Klor-Con 20 MEQ] 20 meq PO BID 11/02/12 [History Confirmed 06/21/21] Primidone [Mysoline] 100 mg PO TID 11/02/12 [History Confirmed 06/21/21] Repaglinide [Prandin 2MG Tablet] 2 mg PO TID 11/02/12 [History Confirmed 06/21/21] Sertraline HCl [Zoloft] 100 mg PO HS 11/02/12 [History Confirmed 06/21/21] Sulfasalazine [Azulfidine] 500 mg PO TID 11/02/12 [History Confirmed 06/21/21] Atorvastatin Calcium 80 mg PO HS 03/17/18 [History Confirmed 06/21/21] Bumetanide 2 mg PO BID 03/17/18 [History Confirmed 06/21/21] Cyanocobalamin (Vitamin B-12) [Vitamin B-12] 1,000 mcg PO DAILY 03/17/18 [History Confirmed 06/21/21] Levothyroxine Sodium 75 Mcg [Synthroid 75 Mcg] 75 mcg PO DAILY 03/17/18 [History Confirmed 06/21/21] Loratadine 10 mg [Claritin 10 mg] 10 mg PO DAILY 03/17/18 [History Confirmed 06/21/21] Metolazone 2.5 mg [Zaroxolyn 2.5 MG] 2.5 mg PO UD 03/17/18 [History Confirmed 06/21/21] Metoprolol Tartrate 25 mg [Lopressor 25MG Tab] 25 mg PO BID 03/17/18 [History Confirmed 06/21/21] Nitroglycerin 0.4 mg (Ed) [Nitrostat 0.4 MG (ED)] 0.4 mg SL UD 03/17/18 [History Confirmed 06/21/21] Oxybutynin Chloride 5 mg PO TID 03/17/18 [History Confirmed 06/21/21] Glipizide 5 mg [Glucotrol 5 MG] 2.5 mg PO BID 04/27/18 [History Confirmed 06/21/21] Cholecalciferol (Vitamin D3) [Vitamin D] 2,000 unit PO DAILY 05/16/21 [History Confirmed 06/21/21] Fluticasone Propionate [Flonase NASAL] 16 gm NS DAILY 05/16/21 [History Confirmed 06/21/21] Lorazepam 0.5 mg [Ativan 0.5 MG] 0.5 mg PO BID PRN 05/16/21 [History Confirmed 06/21/21] Mineral Oil/Petrolatum,White [[facility] Overnight Lubricating Eye] 3.5 gm OP HS 05/16/21 [History Confirmed 06/21/21] Omeprazole 20 mg PO DAILY 05/16/21 [History Confirmed 06/21/21] Testosterone Cypionate [Depo-Testosterone] 200 mg IM UD 05/16/21 [History Confirmed 06/21/21] Acetaminophen 325 mg [Tylenol 325 mg] 650 mg PO Q4H PRN 06/21/21 [History Confirmed 06/21/21] Darifenacin Hydrobromide [Darifenacin ER] 15 mg PO DAILY PRN 06/21/21 [History Confirmed 06/21/21] Fenofibrate Nanocrystallized [Fenofibrate] 145 mg PO DAILY 06/21/21 [History Confirmed 06/21/21] Isosorbide Mononitrate [Isosorbide Mononitrate ER] 60 mg PO DAILY 06/21/21 [History Confirmed 06/21/21] Propylene Glycol/Peg 400 [Systane 0.3-0.4% Eye Drops] 30 ml OP Q6H PRN 06/21/21 [History Confirmed 06/21/21] Tamsulosin HCl 0.4 mg [Flomax 0.4 MG] 0.4 mg PO DAILY 06/21/21 [History Confirmed 06/21/21] Tramadol HCl 50 mg [Ultram 50 mg] 50 mg PO Q8H PRN 06/21/21 [History Confirmed 06/21/21] Allergies/Adverse Reactions: Allergies Allergy/AdvReac Type Severity Reaction Status Date / Time polyurethane Allergy Severe Rash Uncoded 04/14/18 15:47 raw apples Allergy Severe Uncoded 04/14/18 15:47 neoprene Allergy Intermediate Uncoded 04/14/18 15:47 tb tests Allergy Intermediate Uncoded 04/27/18 08:17 bee stings Allergy Unknown Uncoded 04/27/18 08:17 - Past Medical History Past Medical History: Yes Neurological History: Stroke ENT History: Cataracts Cardiac History: Arrhythmia, Congestive Heart Failure, Coronary Artery Disease, Deep Vein Thrombosis, High Cholesterol, Hypertension, Myocardial Infarction ([place]), Other Respiratory History: Asthma, CHF, COPD, Emphysema, Sleep Apnea Endocrine Medical History: Diabetes Type I, Diabetes Type II, Hypothyroidism Musculoskelatal History: Arthritis, Osteoarthritis GI Medical History: Crohns Disease, Diverticulitis, GERD History: Other Pyscho-Social History: Anxiety Male Reproductive Disorders: Other Comment: ruptured aorta during PTCA. DVT in 1969's, Occassional 's Pt has sleep apnea but doesn't wear his cpap. Pt wears 4L n/c at night. NIDDM.Pt checks his blood sugar every 2-3 days. - Past Surgical History Past Surgical History: Yes Neuro Surgical History: No Pertinent History Cardiac History: Angioplasty, Cardiac Catheterization, Cardiac Stent, Vascular Surgery, Other Respiratory Surgery: No Pertinent History GI Surgical History: No Pertinent History Genitourinary Surgical Hx: No Pertinent History Musculskeletal Surgical Hx: Amputation Male Surgical History: No Pertinent History Other Surgical History: [facility] Right carotid endartectomy, PTCA, Ruptured aorta, [place] when aorta ruptured and pt also had a stroke at that time in 1995 Pt has had 17 minor and major surgeries to his left leg prior to his amputation. Hx of skin cancer to left elbow. Pt has had 3 cardiac stents placed at 3 different times for a total of 9 cardiac stents. Cataract surgery left eye - Social History Smoking Status: Former smoker How long have you smoked: 3 years Exposure to second hand smoke: No Alcohol: None Drug Use: none - Physical Exam General Appearance: lethargy, obese Neurologic Exam: cooperative, normal mood/affect Eye Exam: PERRL/EOMI, eyes nml inspection Ears, Nose, Throat Exam: normal ENT inspection, pharynx normal, moist mucous membranes Neck Exam: normal inspection, non-tender, supple, full range of motion Respiratory Exam: normal breath sounds, lungs clear, No respiratory distress Cardiovascular Exam: regular rate/rhythm, normal heart sounds, normal peripheral pulses Gastrointestinal/Abdomen Exam: soft, normal bowel sounds, tenderness, No mass Back Exam: normal inspection, normal range of motion, No CVA tenderness, No vertebral tenderness Extremity Exam: normal inspection, normal range of motion, pelvis stable Skin Exam: normal color, warm, dry, No rash Lymphatic Exam: No adenopathy Results - Labs Lab/Micro Results: Microbiology 06/21/21 10:43 Urine Culture - Final Urine, Catheterized Escherichia Coli Assessment/Plan (1) Altered mental status Status: Acute Code(s): R41.82 - ALTERED MENTAL STATUS, UNSPECIFIED (2) Chronic kidney disease Status: Acute Code(s): N18.9 - CHRONIC KIDNEY DISEASE, UNSPECIFIED (3) Elevated troponin Status: Acute Code(s): R77.8 - OTHER SPECIFIED ABNORMALITIES OF PLASMA PROTEINS (4) Gastrointestinal bleeding Status: Acute Code(s): K92.2 - GASTROINTESTINAL HEMORRHAGE, UNSPECIFIED (5) Serum lipase elevation Status: Acute Code(s): R74.8 - ABNORMAL LEVELS OF OTHER SERUM ENZYMES (6) Urinary tract infection Status: Acute Code(s): N39.0 - URINARY TRACT INFECTION, SITE NOT SPECIFIED
--- NOTE | 2021-07-09 09:20 | PCM.DS ---
Discharge Summary Date of Admission: 06/21/21 12:00 Date of Discharge: 06/28/2021 Admitting Physician: ADRIAN MCELROY Consults: Consults on Case 06/22/21 09:16 Consult Surgery ROUTINE 06/24/21 14:14 Consult Surgery ROUTINE 06/25/21 14:20 Consult Surgery ROUTINE Primary Care Provider: NAVID RONQUILLO Allergies Allergies polyurethane Allergy (Severe, Uncoded 04/14/18 15:47) Rash raw apples Allergy (Severe, Uncoded 04/14/18 15:47) paralysis neoprene Allergy (Intermediate, Uncoded 04/14/18 15:47) rash tb tests Allergy (Intermediate, Uncoded 04/27/18 08:17) bee stings Allergy (Unknown, Uncoded 04/27/18 08:17) Hospital Summary - Hospital Course Hospital Course: Pt. admitted after noting general weakness and GI bleed. Pt. was stabilized and after receiving pRBC's strength began to return, mental status improved with more strength, less sleepy, and bleeding per rectum stopped. Pt. then underwent a colonoscopy with no obvious source noted, pt. with history of crohn's colitis and elevated amylase and lipase, suspician for his crohns as the cause of the bleed moved high on the list of etiology for the gi bleed. Pt. was stable for discharge and felt stable enough for discharge to [facility] for continued strengthening related to this and prior admission for fall within the past month. - Vitals & Intake/Output Vital Signs: Vital Signs Temperature 98.4 F 06/28/21 08:00 Pulse Rate 82 06/28/21 08:00 Respiratory Rate 22 06/28/21 08:00 Blood Pressure 143/76 06/28/21 08:00 O2 Sat by Pulse Oximetry 98 06/28/21 08:00 - Lab Result Diagrams: 06/27/21 06:00 06/27/21 06:00 Micro Results-Entire Visit: Microbiology 06/21/21 10:43 Urine Culture - Final Urine, Catheterized Escherichia Coli - Procedures and Test Procedures and Tests throughout Hospitalization: Therapy Orders & Screens 06/22/21 07:00 Respiratory Therapy Assessment DAILY Comment: Diagnosis: UTI, AMS, CKD elevated lipase, elevated amylase, elevated troponin 06/23/21 10:22 PT Eval & Treat ( Order) ONCE Reason for Eval:: for prosthetic left BKA leg Diagnosis: UTI, AMS, CKD elevated lipase, elevated amylase, elevated troponin Discharge Exam General Appearance: no apparent distress, alert Neurologic Exam: alert, oriented x 3, cooperative, normal mood/affect, nml cerebellar function, sensation nml, No motor deficits Eye Exam: PERRL, EOMI, eyes nml inspection Ears, Nose, Throat Exam: normal ENT inspection, pharynx normal, moist mucous membranes Neck Exam: normal inspection, non-tender, supple, full range of motion Respiratory Exam: normal breath sounds, lungs clear, No respiratory distress Cardiovascular Exam: regular rate/rhythm, normal heart sounds Gastrointestinal/Abdomen Exam: soft, No tenderness, No mass Male Genitalia Exam: deferred Rectal Exam: deferred Back Exam: normal inspection, normal range of motion, No CVA tenderness, No vertebral tenderness Extremity Exam: normal inspection, normal range of motion, other (left leg missing from prior accident) Skin Exam: normal color, warm, dry Final Diagnosis/Problem List - Final Discharge Diagnosis/Problem (1) Altered mental status Status: Acute Code(s): R41.82 - ALTERED MENTAL STATUS, UNSPECIFIED (2) Chronic kidney disease Status: Acute Code(s): N18.9 - CHRONIC KIDNEY DISEASE, UNSPECIFIED (3) Elevated troponin Status: Acute Code(s): R77.8 - OTHER SPECIFIED ABNORMALITIES OF PLASMA PROTEINS (4) Gastrointestinal bleeding Status: Acute Code(s): K92.2 - GASTROINTESTINAL HEMORRHAGE, UNSPECIFIED (5) Serum lipase elevation Status: Acute Code(s): R74.8 - ABNORMAL LEVELS OF OTHER SERUM ENZYMES (6) Urinary tract infection Status: Acute Code(s): N39.0 - URINARY TRACT INFECTION, SITE NOT SPECIFIED - Discharge Discharge Date: 06/28/21 Disposition: Skilled Care @ [facility] Condition: Critical Prescriptions: No Action Allopurinol 300 mg [Zyloprim 300 mg] 300 mg PO DAILY Clopidogrel Bisulfate 75 mg [PLAVIX 75 MG Tablet] 75 mg PO DAILY Budesonide/Formoterol Fumarate [Symbicort 160-4.5 Mcg Inhaler] 2 puff IH BID Aspirin EC 325 mg [Ecotrin 325 MG] 325 mg PO DAILY Folic Acid 1 mg [Folate 1 mg] 1 mg PO DAILY Sulfasalazine [Azulfidine] 500 mg PO TID Sertraline HCl [Zoloft] 100 mg PO HS Repaglinide [Prandin 2MG Tablet] 2 mg PO TID Primidone [Mysoline] 100 mg PO TID Potassium Chloride 20 Meq [Klor-Con 20 MEQ] 20 meq PO BID [place]-3/Dha/Epa/Fish Oil [Fish Oil 1,000 mg Softgel] 1 each PO TID Modafinil [Provigil] 200 mg PO HS Guaifenesin Dextromethorphan [MUCINEX Dm 600/30MG] 1 tablet PO HS PRN PRN Reason: Cough Oxybutynin Chloride 5 mg PO TID Nitroglycerin 0.4 mg (Ed) [Nitrostat 0.4 MG (ED)] 0.4 mg SL UD Metoprolol Tartrate 25 mg [Lopressor 25MG Tab] 25 mg PO BID Metolazone 2.5 mg [Zaroxolyn 2.5 MG] 2.5 mg PO UD Loratadine 10 mg [Claritin 10 mg] 10 mg PO DAILY Levothyroxine Sodium 75 Mcg [Synthroid 75 Mcg] 75 mcg PO DAILY Bumetanide 2 mg PO BID Atorvastatin Calcium 80 mg PO HS Cyanocobalamin (Vitamin B-12) [Vitamin B-12] 1,000 mcg PO DAILY Glipizide 5 mg [Glucotrol 5 MG] 2.5 mg PO BID Omeprazole 20 mg PO DAILY Testosterone Cypionate [Depo-Testosterone] 200 mg IM UD Mineral Oil/Petrolatum,White [[facility] Overnight Lubricating Eye] 3.5 gm OP HS Lorazepam 0.5 mg [Ativan 0.5 MG] 0.5 mg PO BID PRN PRN Reason: Anxiety Fluticasone Propionate [Flonase NASAL] 16 gm NS DAILY Cholecalciferol (Vitamin D3) [Vitamin D] 2,000 unit PO DAILY Tamsulosin HCl 0.4 mg [Flomax 0.4 MG] 0.4 mg PO DAILY Isosorbide Mononitrate [Isosorbide Mononitrate ER] 60 mg PO DAILY Darifenacin Hydrobromide [Darifenacin ER] 15 mg PO DAILY PRN PRN Reason: pain Fenofibrate Nanocrystallized [Fenofibrate] 145 mg PO DAILY Acetaminophen 325 mg [Tylenol 325 mg] 650 mg PO Q4H PRN PRN Reason: Pain Propylene Glycol/Peg 400 [Systane 0.3-0.4% Eye Drops] 30 ml OP Q6H PRN PRN Reason: dryness Tramadol HCl 50 mg [Ultram 50 mg] 50 mg PO Q8H PRN PRN Reason: Pain Instructions: Urinary Tract Infection, Adult (DC) Additional Instructions: -RESUME PREVIOUS CARE HOME ORDERS -SEE ATTACHED MEDICATION SHEET FOR MEDICATION ORDERS Forms: Transfer Record [facility]
== END 2021-06-28 11:30 | DRG 948 ==
LOC: ED 10:14 → ICU 12:00 → OBSVTOIN 12:00 → INTOOBSV 14:10 → ICU 14:10 → UNDOADMOB 14:10
PROVIDERS: ADMIT Family Medicine; ATTEND Family Medicine
DX: R41.82 Altered mental status, unspecified (principal); K92.2 Gastrointestinal hemorrhage, unspecified; N39.0 Urinary tract infection, site not specified; N17.9 Acute kidney failure, unspecified; I13.0 Hypertensive heart and chronic kidney disease with heart failure and stage 1 through stage 4 chronic kidney disease, or unspecified chronic kidney disease; D64.9 Anemia, unspecified; R77.8 Other specified abnormalities of plasma proteins; R04.0 Epistaxis; R53.1 Weakness; I50.9 Heart failure, unspecified; E03.9 Hypothyroidism, unspecified; E78.00 Pure hypercholesterolemia, unspecified; I25.10 Atherosclerotic heart disease of native coronary artery without angina pectoris; I25.2 Old myocardial infarction; Z20.828 Contact with and (suspected) exposure to other viral communicable diseases; Z79.899 Other long term (current) drug therapy; Z79.01 Long term (current) use of anticoagulants; E11.22 Type 2 diabetes mellitus with diabetic chronic kidney disease; N18.9 Chronic kidney disease, unspecified; R74.8 Abnormal levels of other serum enzymes
CPT/HCPCS: 0241U; 36000; 36415; 36430; 43235; 45378; 51702; 70450; 71045; 74176; 80048; 80053; 81001; 82150; 82947; 83036; 83605; 83690; 84443; 84484; 85014; 85018; 85025; 85027; 85610; 85730; 86850; 86900; 86901; 86922; 87077; 87086; 87186; 93005; 94640; 94760; 94762; 96365; 97161; 97530; 99285; 99291; G0328; P9016; 82274; 99100; J0696; J1817; J1940; J2704; A9270-GY

== ENCOUNTER 2021-12-20 14:36 | Emergency (ER) | payer MEDICARE, BC ==
--- NOTE | 2021-12-20 14:44 | ERPHSYRPT ---
- History of Present Illness Time Seen by Provider: 12/20/21 14:44 Source: patient, EMS Exam Limitations: no limitations Physician History: This is a 76-year-old white male skilled nursing ([facility]) resident. Ambulance service brought this patient in at the request of the patient's family. They feel that he is confused. The skilled nursing and the patient both state that he is at his baseline. Patient's primary complaint is bilateral shoulder pain and right knee pain. Patient has a history of diabetes, CVA, arrhythmia on Plavix, CHF, coronary artery disease (angioplasty, cardiac cath, cardiac stents), peripheral vascular disease (right carotid endarterectomy) DVT, elevated cholesterol, hypertension, asthma, COPD, Crohn's disease, irritable bowel syndrome and diverticulitis. Patient has no chest pain complaints. He is not short of breath. He has no abdominal pain complaints. Patient appears alert. Timing/Duration: today Severity: mild Associated Symptoms: other (Pain in both shoulder joints and right knee) Allergies/Adverse Reactions: polyurethane Allergy (Severe, Uncoded 12/20/21 14:43) Rash raw apples Allergy (Severe, Uncoded 12/20/21 14:43) paralysis neoprene Allergy (Intermediate, Uncoded 12/20/21 14:43) rash tb tests Allergy (Intermediate, Uncoded 12/20/21 14:43) bee stings Allergy (Unknown, Uncoded 12/20/21 14:43) Home Medications: Allopurinol 300 mg [Zyloprim 300 mg] 300 mg PO DAILY 11/02/12 [History] Aspirin EC 325 mg [Ecotrin 325 MG] 325 mg PO DAILY 11/02/12 [History] Budesonide/Formoterol Fumarate [Symbicort 160-4.5 Mcg Inhaler] 2 puff IH BID 11/02/12 [History] Clopidogrel Bisulfate [PLAVIX Tablet] 75 mg PO DAILY 11/02/12 [History] Folic Acid 1 mg [Folate 1 mg] 1 mg PO DAILY 11/02/12 [History] Guaifenesin Dextromethorphan [MUCINEX Dm 600/30MG] 1 tablet PO HS PRN 11/02/12 [History] Modafinil [Provigil] 200 mg PO HS 11/02/12 [History] Hayden-3/Dha/Epa/Fish Oil [Fish Oil 1,000 mg Softgel] 1 each PO TID 11/02/12 [History] Potassium Chloride 20 Meq [Klor-Con 20 MEQ] 20 meq PO BID 11/02/12 [History] Primidone [Mysoline] 100 mg PO TID 11/02/12 [History] Repaglinide [Prandin 2MG Tablet] 2 mg PO TID 11/02/12 [History] Sertraline HCl [Zoloft] 100 mg PO HS 11/02/12 [History] Sulfasalazine [Azulfidine] 500 mg PO TID 11/02/12 [History] Atorvastatin Calcium 80 mg PO HS 03/17/18 [History] Bumetanide 2 mg PO BID 03/17/18 [History] Cyanocobalamin (Vitamin B-12) [Vitamin B-12] 1,000 mcg PO DAILY 03/17/18 [History] Levothyroxine Sodium 75 Mcg [Synthroid 75 Mcg] 75 mcg PO DAILY 03/17/18 [History] Loratadine 10 mg [Claritin 10 mg] 10 mg PO DAILY 03/17/18 [History] Metolazone 2.5 mg [Zaroxolyn 2.5 MG] 2.5 mg PO UD 03/17/18 [History] Metoprolol Tartrate 25 mg [Lopressor 25MG Tab] 25 mg PO BID 03/17/18 [History] Nitroglycerin 0.4 mg (Ed) [Nitrostat 0.4 MG (ED)] 0.4 mg SL UD 03/17/18 [History] Oxybutynin Chloride 5 mg PO TID 03/17/18 [History] Glipizide 5 mg [Glucotrol 5 MG] 2.5 mg PO BID 04/27/18 [History] Cholecalciferol (Vitamin D3) [Vitamin D] 2,000 unit PO DAILY 05/16/21 [History] Fluticasone Propionate [Flonase NASAL] 16 gm NS DAILY 05/16/21 [History] Lorazepam 0.5 mg [Ativan 0.5 MG] 0.5 mg PO BID PRN 05/16/21 [History] Mineral Oil/Petrolatum,White [[facility] Overnight Lubricating Eye] 3.5 gm OP HS 05/16/21 [History] Omeprazole 20 mg PO DAILY 05/16/21 [History] Testosterone Cypionate [Depo-Testosterone] 200 mg IM UD 05/16/21 [History] Acetaminophen 325 mg [Tylenol 325 mg] 650 mg PO Q4H PRN 06/21/21 [History] Darifenacin Hydrobromide [Darifenacin ER] 15 mg PO DAILY PRN 06/21/21 [History] Fenofibrate Nanocrystallized [Fenofibrate] 145 mg PO DAILY 06/21/21 [History] Isosorbide Mononitrate [Isosorbide Mononitrate ER] 60 mg PO DAILY 06/21/21 [History] Propylene Glycol/Peg 400 [Systane 0.3-0.4% Eye Drops] 30 ml OP Q6H PRN 06/21/21 [History] Tamsulosin HCl 0.4 mg [Flomax 0.4 MG] 0.4 mg PO DAILY 06/21/21 [History] Tramadol HCl 50 mg [Ultram 50 mg] 50 mg PO Q8H PRN 06/21/21 [History] Hx Tetanus, Diphtheria Vaccination/Date Given: Yes (UP TO DATE) Hx Influenza Vaccination/Date Given: No Hx Pneumococcal Vaccination/Date Given: No Travel Risk - International Travel Have you traveled outside of the country in past 3 weeks: No - Coronavirus Screening Are you exhibiting any of the following symptoms?: No Close contact with a COVID-19 positive Pt in past 14-21 Days: No - Vaccine Status Have you recieved a Covid-19 vaccination: (unknown) - Review of Systems Constitutional: No Symptoms Eyes: No Symptoms Ears, Nose, & Throat: No Symptoms Respiratory: No Symptoms Cardiac: No Symptoms Abdominal/Gastrointestinal: No Symptoms Genitourinary Symptoms: No Symptoms Musculoskeletal: Joint Pain (Painful joints of both shoulders and right knee) Skin: No Symptoms Neurological: No Symptoms Psychological: No Symptoms Endocrine: No Symptoms Hematologic/Lymphatic: No Symptoms Immunological/Allergic: No Symptoms All Other Systems: Reviewed and Negative - Past Medical History Pertinent Past Medical History: Yes Neurological History: Stroke ENT History: Cataracts Cardiac History: Arrhythmia, Congestive Heart Failure, Coronary Artery Disease, Deep Vein Thrombosis, High Cholesterol, Hypertension, Myocardial Infarction ([place]), Other Respiratory History: Asthma, CHF, COPD, Emphysema, Sleep Apnea Endocrine Medical History: Diabetes Type I, Diabetes Type II, Hypothyroidism Musculoskeletal History: Arthritis, Osteoarthritis GI Medical History: Crohns Disease, Diverticulitis, GERD History: Other Psycho-Social History: Anxiety Male Reproductive Disorders: Other Other Medical History: ruptured aorta during PTCA. DVT in s, Occassional PVC's Pt has sleep apnea but doesn't wear his cpap. Pt wears 4L n/c at night. NIDDM.Pt checks his blood sugar every 2-3 days. - Past Surgical History Past Surgical History: Yes Neuro Surgical History: No Pertinent History Cardiac: Angioplasty, Cardiac Catheterization, Cardiac Stent, Vascular Surgery, Other Respiratory: No Pertinent History Gastrointestinal: No Pertinent History Genitourinary: No Pertinent History Musculoskeletal: Amputation Male Surgical History: No Pertinent History Other Surgical History: [facility] Right carotid endartectomy, PTCA, Ruptured aorta, [place] when aorta ruptured and pt also had a stroke at that time in 1995 Pt has had 17 minor and major surgeries to his left leg prior to his amputation. Hx of skin cancer to left elbow. Pt has had 3 cardiac stents placed at 3 different times for a total of 9 cardiac stents. Cataract surgery left eye - Social History Smoking Status: Former smoker How long have you smoked: 3 years Exposure to second hand smoke: No Drug Use: none Patient Lives Alone: No - Nursing Vital Signs Nursing Vital Signs: Initial Vital Signs Temperature 97.6 F 12/20/21 14:44 Pulse Rate 93 H 12/20/21 14:44 Respiratory Rate 19 12/20/21 14:44 Blood Pressure 135/91 12/20/21 14:44 O2 Sat by Pulse Oximetry 97 12/20/21 14:44 Pain Scale Pain Intensity 6 - Physical Exam General Appearance: no apparent distress, alert Eye Exam: PERRL/EOMI, eyes nml inspection Ears, Nose, Throat Exam: normal ENT inspection, moist mucous membranes Neck Exam: normal inspection, non-tender, supple, full range of motion Respiratory Exam: normal breath sounds, lungs clear, airway intact, No chest tenderness, No respiratory distress Cardiovascular Exam: regular rate/rhythm, normal heart sounds, normal peripheral pulses Gastrointestinal/Abdomen Exam: soft, normal bowel sounds, No tenderness Rectal Exam: not done Back Exam: normal inspection, normal range of motion, No CVA tenderness, No vertebral tenderness Extremity Exam: normal inspection (Right lower extremity), normal range of motion (Right lower extremity), pelvis stable, other (Left lower leg amputation) Neurologic Exam: alert, oriented x 3, cooperative, gasket notcher II-XII nml as tested, normal mood/affect Skin Exam: normal color, warm, dry Lymphatic Exam: No adenopathy SpO2 Interpretation: normal O2 Delivery: Room Air - Course Nursing assessment & vital signs reviewed: Yes Ordered Tests: Active Orders 24 hr Category Date Time Status IV Insertion STAT Care 12/20/21 15:11 Active NPO (ED) STAT Care 12/20/21 15:12 Active Pulse Oximetry (ED) STAT Care 12/20/21 15:11 Active HEAD WITHOUT CONTRAST [CT] Stat Exams 12/20/21 15:12 Completed KNEE (1 OR 2 VIEW) Stat Exams 12/20/21 15:13 Taken SHOULDER Stat Exams 12/20/21 15:13 Taken SHOULDER Stat Exams 12/20/21 15:13 Taken CBC W DIFF Stat Lab 12/20/21 15:41 Completed CMP Stat Lab 12/20/21 15:14 Completed CULTURE,URINE Stat Lab 12/20/21 15:14 Received UA W/RFX CULTURE Stat Lab 12/20/21 15:14 Completed Medication Summary Discontinued Medications Generic Name Dose Route Start Last Admin Trade Name Gabe PRN Reason Stop Dose Admin Ceftriaxone Sodium/Dextrose 1 g in 50 mls @ 100 mls/hr 12/20/21 17:00 12/20/21 17:20 Rocephin 1 Gm-D5w 50 Ml Bag IV 12/20/21 17:29 100 mls/hr STAT STA 100 mls/hr Administration Ceftriaxone Sodium/Dextrose Confirm 12/20/21 17:17 Rocephin 1 Gm-D5w 50 Ml Bag Administered 12/20/21 17:18 Dose 1 g in 50 mls @ ud IV .K-MED ONE Lab/Rad Data: Laboratory Result Diagrams 12/20/21 15:41 12/20/21 15:14 Laboratory Results 12/20/21 12/20/21 12/20/21 Range/Units 15:41 15:14 15:14 WBC 11.7 H (4.0-10.5) x10^3/uL RBC 3.72 L (4.1-5.6) x10^6/uL Hgb 11.4 L (12.5-18.0) g/dL Hct 35.8 L (42-50) % MCV 96.2 (78-100) fL MCH 30.6 (26-32) pg MCHC 31.8 L (32-36) g/dL RDW 16.2 H (11.5-14.0) % Plt Count 368 (150-450) x10^3/uL MPV 11.2 H (7.5-11.0) fL Gran % 81.6 H (36.0-66.0) % Immature Gran % (Auto) 0.7 H (0.00-0.4) % Nucleat RBC Rel Count 0.0 (0.00-0.1) % Eos # (Auto) 0.11 (0-0.5) x10^3/uL Immature Gran # (Auto) 0.08 H (0.00-0.03) x10^3u/L Absolute Lymphs (auto) 1.02 (1.0-4.6) x10^3/uL Absolute Monos (auto) 0.88 (0.0-1.3) x10^3/uL Absolute Nucleated RBC 0.00 (0.00-0.01) x10^3u/L Lymphocytes % 8.7 L (24.0-44.0) % Monocytes % 7.5 (0.0-12.0) % Eosinophils % 0.9 (0.00-5.0) % Basophils % 0.6 (0.0-0.4) % Absolute Granulocytes 9.55 H (1.4-6.9) x10^3/uL Basophils # 0.07 (0-0.4) x10^3/uL Sodium (137-145) mmol/L Potassium (3.5-5.1) mmol/L Chloride (98-107) mmol/L Carbon Dioxide (22-30) mmol/L Anion Gap (5-15) MEQ/L BUN (9-20) mg/dL Creatinine (0.66-1.25) mg/dL Estimated GFR ML/MIN Glucose (74-106) mg/dL Calcium (8.4-10.2) mg/dL Total Bilirubin (0.2-1.3) mg/dL AST (17-59) U/L ALT (0-50) U/L Alkaline Phosphatase (38-126) U/L Ammonia < 9 L (9-30) umol/L Serum Total Protein (6.3-8.2) g/dL Albumin (3.5-5.0) g/dL Urinalys Dipstick Clnc MAIN LAB Urine Color YELLOW (YELLOW) Urine Appearance TURBID (CLEAR) Urine pH 5.0 (5-6) Ur Specific Stanley 1.020 (1.005-1.025) POC Urine Protein Conf 100 (Negative) Urine Ketones NEGATIVE (NEGATIVE) Urine Nitrite NEGATIVE (NEGATIVE) Urine Bilirubin NEGATIVE (NEGATIVE) Urine Urobilinogen 0.2 (0-1) mg/dL Urine Leukocytes LARGE (NEGATIVE) Urine WBC (Auto) >100 (0-5) /HPF Urine RBC (Auto) 16-25 (0-2) /HPF U Epithel Cells (Auto) NONE (FEW) /HPF Urine Bacteria (Auto) PACKED (NEGATIVE) /HPF Urine RBC MODERATE (0-5) Oc/ul Urine Mucus (Auto) SLIGHT (NEGATIVE) /HPF Ur Culture Indicated? YES Urine Glucose NEGATIVE (NEGATIVE) mg/dL 12/20/21 Range/Units 15:14 WBC (4.0-10.5) x10^3/uL RBC (4.1-5.6) x10^6/uL Hgb (12.5-18.0) g/dL Hct (42-50) % MCV (78-100) fL MCH (26-32) pg MCHC (32-36) g/dL RDW (11.5-14.0) % Plt Count (150-450) x10^3/uL MPV (7.5-11.0) fL Gran % (36.0-66.0) % Immature Gran % (Auto) (0.00-0.4) % Nucleat RBC Rel Count (0.00-0.1) % Eos # (Auto) (0-0.5) x10^3/uL Immature Gran # (Auto) (0.00-0.03) x10^3u/L Absolute Lymphs (auto) (1.0-4.6) x10^3/uL Absolute Monos (auto) (0.0-1.3) x10^3/uL Absolute Nucleated RBC (0.00-0.01) x10^3u/L Lymphocytes % (24.0-44.0) % Monocytes % (0.0-12.0) % Eosinophils % (0.00-5.0) % Basophils % (0.0-0.4) % Absolute Granulocytes (1.4-6.9) x10^3/uL Basophils # (0-0.4) x10^3/uL Sodium 132 L (137-145) mmol/L Potassium 4.7 (3.5-5.1) mmol/L Chloride 92 L (98-107) mmol/L Carbon Dioxide 27 (22-30) mmol/L Anion Gap 17.9 H (5-15) MEQ/L BUN 99 H (9-20) mg/dL Creatinine 1.95 H (0.66-1.25) mg/dL Estimated GFR 35.8 ML/MIN Glucose 276 H (74-106) mg/dL Calcium 11.1 H (8.4-10.2) mg/dL Total Bilirubin 1.50 H (0.2-1.3) mg/dL AST 27 (17-59) U/L ALT 18 (0-50) U/L Alkaline Phosphatase 152 H (38-126) U/L Ammonia (9-30) umol/L Serum Total Protein 9.4 H (6.3-8.2) g/dL Albumin 4.1 (3.5-5.0) g/dL Urinalys Dipstick Clnc Urine Color (YELLOW) Urine Appearance (CLEAR) Urine pH (5-6) Ur Specific Stanley (1.005-1.025) POC Urine Protein Conf (Negative) Urine Ketones (NEGATIVE) Urine Nitrite (NEGATIVE) Urine Bilirubin (NEGATIVE) Urine Urobilinogen (0-1) mg/dL Urine Leukocytes (NEGATIVE) Urine WBC (Auto) (0-5) /HPF Urine RBC (Auto) (0-2) /HPF U Epithel Cells (Auto) (FEW) /HPF Urine Bacteria (Auto) (NEGATIVE) /HPF Urine RBC (0-5) Oc/ul Urine Mucus (Auto) (NEGATIVE) /HPF Ur Culture Indicated? Urine Glucose (NEGATIVE) mg/dL - Progress Progress: pain not gone completely Progress Note: 12/20/21 17:29 X-ray of right shoulder shows no acute fracture or dislocation. X-ray of left shoulder shows no acute fracture or dislocation X-ray of right knee shows no acute fracture or dislocation. Counseled pt/family regarding: diagnosis, need for follow-up, rad results - Departure Departure Disposition: Home Clinical Impression: Confusion, UTI (urinary tract infection), Bilateral shoulder pain, Right knee pain Condition: Stable Critical Care Time: No Referrals: TANNA SAAVEDRA [Primary Care Provider] - Follow up/PCP as directed Additional Instructions: Take antibiotics as prescribed. Continue the skilled nursing orders as prescribed. Prescriptions: Cefdinir 300 mg PO BID #14 cap
--- NOTE | 2021-12-20 15:51 | XRAY ---
Indication: Altered mental status. Multiple contiguous axial images obtained through the head without contrast. Comparison: June 21, 2021. Several images slightly degraded by motion artifact. Again age-appropriate global atrophy, mild periventricular degenerative micro-ischemia bilaterally, and small old infarct right posterior parietal lobe. No acute intracranial hemorrhage, abnormal extra-axial fluid collection, or mass effect. Fourth ventricle is midline without hydrocephalus. Bony calvarium intact. Visualized paranasal sinuses and mastoid air cells are clear. Impression: Motion artifact. Grossly stable nonacute senile brain with again old infarct right posterior parietal lobe.
[2021-12-20 15:53] LABS: Bacteria PACKED /HPF (NEGATIVE); Mucus SLIGHT /HPF (NEGATIVE); WBC >100 /HPF (0-5)
[2021-12-20 15:57] LABS: Absolute Neutrophil Ct (ANC) 9.55 x10^3/uL (1.4-6.9); Basophil (Absolute #) 0.07 x10^3/uL (0-0.4); Eosinophil % 0.9 % (0.00-5.0); Eosinophil (Absolute #) 0.11 x10^3/uL (0-0.5); Hematocrit 35.8 % (42-50); Hemoglobin 11.4 g/dL (12.5-18.0); Lymphocyte (Absolute #) 1.02 x10^3/uL (1.0-4.6); Lymphocytes % 8.7 % (24.0-44.0); Mean Cell Volume 96.2 fL (78-100); Mean Corpuscular Hemoglobin 30.6 pg (26-32); Mean Corpuscular Hgb Concent. 31.8 g/dL (32-36); Mean Platelet Volume 11.2 fL (7.5-11.0); Monocyte (Absolute #) 0.88 x10^3/uL (0.0-1.3); Monocytes % 7.5 % (0.0-12.0); Neutrophil % 81.6 % (36.0-66.0); Platelet Count 368 x10^3/uL (150-450); Red Blood Count 3.72 x10^6/uL (4.1-5.6); Red Cell Distribution Width 16.2 % (11.5-14.0); White Blood Count 11.7 x10^3/uL (4.0-10.5)
[2021-12-20 15:57] LABS: Appearance TURBID (CLEAR); Bilirubin NEGATIVE (NEGATIVE); Glucose NEGATIVE (NEGATIVE); Ketones NEGATIVE (NEGATIVE); RBC MODERATE Ery/ul (0-5)
[2021-12-20 15:58] LABS: Nitrite NEGATIVE (NEGATIVE); Protein,Urine Dip 100 (Negative); Urine Cultured Indicated? YES; Urobilinogen 0.2 mg/dL (0-1)
[2021-12-20 16:09] LABS: Dipstick done @ ? MAIN LAB
[2021-12-20] MEDS ORDERED: ROCEPHIN 1 Gm-D5w 50 ml Bag** 1 G/50 ML IVPB IV STA (17:00)
[2021-12-20 17:04] LABS: ALBUMIN 4.1 g/dL (3.5-5.0); ANION GAP 17.9 MEQ/L (5-15); BILIRUBIN,TOTAL 1.5 mg/dL (0.2-1.3); Calcium 11.1 mg/dL (8.4-10.2); Creatinine 1 1.95 mg/dL (0.66-1.25); EST GLOMERULAR FILTRATION RATE 35.8 ML/MIN; Potassium 4.7 mmol/L (3.5-5.1); Total Protein 9.4 g/dL (6.3-8.2)
[2021-12-20] MEDS ORDERED: ROCEPHIN 1 Gm-D5w 50 ml Bag** 1 G/50 ML IVPB IV ONE (17:17)
[2021-12-20 18:51] VITALS: BP 146/93; PULSE 88; O2SAT 95
--- NOTE | 2021-12-20 22:23 | XRAY ---
Indication: Pain. Comparison: None 3 view left shoulder demonstrates osteopenia, mild AC degenerative arthropathy, multilevel cervicothoracic degenerative spondylosis, and CABG. No other bony, articular, or soft tissue abnormalities.
--- NOTE | 2021-12-20 22:23 | XRAY ---
Indication: Pain. Comparison: None 3 view right shoulder demonstrates osteopenia, mild AC degenerative arthropathy, multilevel cervicothoracic degenerative spondylosis, right carotid endarterectomy, and right hilar surgical clips. No other bony, articular, or soft tissue abnormalities.
--- NOTE | 2021-12-20 22:25 | XRAY ---
Indication: Pain. Comparison: None AP/lateral right knee demonstrates osteopenia, mild/moderate tricompartmental degenerative changes greatest medial compartment, small nonspecific effusion, small posterior fabella, extensive diffuse vascular calcifications, and multiple medial vascular clips. No other bony, articular, or soft tissue abnormalities.
== END 2021-12-20 18:51 | disposition home or self-care (01) ==
LOC: ED 14:36
DX: N39.0 Urinary tract infection, site not specified (principal); R41.0 Disorientation, unspecified; M25.511 Pain in right shoulder; M25.512 Pain in left shoulder; M25.561 Pain in right knee; E11.9 Type 2 diabetes mellitus without complications; E78.5 Hyperlipidemia, unspecified; I10 Essential (primary) hypertension; J44.9 Chronic obstructive pulmonary disease, unspecified; Z79.02 Long term (current) use of antithrombotics/antiplatelets; Z79.84 Long term (current) use of oral hypoglycemic drugs; Z79.891 Long term (current) use of opiate analgesic; Z79.899 Other long term (current) drug therapy
CPT/HCPCS: 36000; 36415; 70450; 73030; 73560; 80053; 81015; 82140; 85025; 87077; 87086; 87186; 94760; 96365; 99284; J0696

== ENCOUNTER 2022-02-17 16:08 | Observation (INO) | payer MEDICARE, BC ==
[2022-02-17 17:08] LABS: Absolute Neutrophil Ct (ANC) 5.27 x10^3/uL (1.4-6.9); Basophil (Absolute #) 0.03 x10^3/uL (0-0.4); Eosinophil % 2.2 % (0.00-5.0); Eosinophil (Absolute #) 0.16 x10^3/uL (0-0.5); Hematocrit 33.2 % (42-50); Hemoglobin 10.7 g/dL (12.5-18.0); Lymphocyte (Absolute #) 1.13 x10^3/uL (1.0-4.6); Lymphocytes % 15.5 % (24.0-44.0); Mean Cell Volume 95.7 fL (78-100); Mean Corpuscular Hemoglobin 30.8 pg (26-32); Mean Corpuscular Hgb Concent. 32.2 g/dL (32-36); Mean Platelet Volume 9.9 fL (7.5-11.0); Monocyte (Absolute #) 0.65 x10^3/uL (0.0-1.3); Monocytes % 8.9 % (0.0-12.0); Neutrophil % 72.5 % (36.0-66.0); Platelet Count 236 x10^3/uL (150-450); Red Blood Count 3.47 x10^6/uL (4.1-5.6); Red Cell Distribution Width 17.3 % (11.5-14.0); White Blood Count 7.3 x10^3/uL (4.0-10.5)
--- NOTE | 2022-02-17 17:08 | XRAY ---
Indication: Cough, confusions, and crackles. Comparison: June 21, 2021. Portable chest remains slightly underinflated with new mild left perihilar airspace disease and small left effusion. Remaining heart and right lung unremarkable again with CABG. Bony thorax intact again with osteopenia and degenerative changes.
[2022-02-17 17:10] LABS: Bacteria RARE /HPF (NEGATIVE); Epithelial Cells RARE /HPF (FEW); Mucus SLIGHT /HPF (NEGATIVE); RBC 0-2 /HPF (0-2)
[2022-02-17 17:11] LABS: Appearance CLEAR (CLEAR); Bilirubin NEGATIVE (NEGATIVE); Glucose NEGATIVE (NEGATIVE); Ketones NEGATIVE (NEGATIVE); Nitrite NEGATIVE (NEGATIVE); Ph 5.5 (5-6); Protein,Urine Dip TRACE (Negative); RBC TRACE-INTACT Ery/ul (0-5); Urine Cultured Indicated? YES; Urobilinogen 0.2 mg/dL (0-1)
[2022-02-17 17:12] LABS: Dipstick done @ ? MAIN LAB
[2022-02-17 17:23] LABS: INR 1.3 (0.8-3.0); PROTIME 13.5 SECONDS (9.4-12.5); PTT 38.1 SECONDS (25.1-36.5)
[2022-02-17 17:33] LABS: ALBUMIN 4.1 g/dL (3.5-5.0); ANION GAP 16.9 MEQ/L (5-15); Calcium 10.3 mg/dL (8.4-10.2); Creatinine 1 1.61 mg/dL (0.66-1.25); EST GLOMERULAR FILTRATION RATE 44.7 ML/MIN; TROPONIN 0.019 ng/mL (0.000-0.034); Total Protein 8.9 g/dL (6.3-8.2)
[2022-02-17 21:00] LABS: INFLUENZA A NEGATIVE (NEGATIVE); INFLUENZA B NEGATIVE (NEGATIVE); RESPIRATORY SYNCTIAL VIRUS NEGATIVE (Negative); SARS-CoV-2 Xpert Express NEGATIVE (NEGATIVE)
--- NOTE | 2022-02-17 22:14 | ERPHSYRPT ---
- History of Present Illness Source: patient, EMS Exam Limitations: other (Very poor historian) Patient Subjective Stated Complaint: patient had called daughter in the middle of the night and she became concerned that he had altered mental status. snf called ambulance to bring patient ER to be checked out. Triage Nursing Assessment: patient brought in via ems from [facility]. patient is alert to person, place, but not time. Patient states that he is mad at his aid from last night because she didn't get him anything to eat because she forgets all the time. Lungs clear. Abdomen soft. Voided per urinal, light doron. Physician History: 76 yo wm who is alert but disoriented to time sent to ER from [place] due to altered mental status x48 hours. Pt has no complaints at this time. He denies chest pain/dyspnea/N/V/D/fever/focal weakness. Timing/Duration: day(s) (2 days) Severity: mild Character of Deficits: none Baseline/Normal Cognition: alert but confused Current Cognition: alert but confused Associated Symptoms: confusion, No fatigue, No fever, No chills, No loss of consciousness, No nausea, No vomiting, No weakness, No insomnia, No muscle spasms, No numbness/tingling in legs/feet, No paresthesia, No ringing in ears, No seizures, No slurred speech, No trouble walking, No vision changes, No chest pain, No headache Allergies/Adverse Reactions: polyurethane Allergy (Severe, Uncoded 12/20/21 14:43) Rash raw apples Allergy (Severe, Uncoded 12/20/21 14:43) paralysis neoprene Allergy (Intermediate, Uncoded 12/20/21 14:43) rash tb tests Allergy (Intermediate, Uncoded 12/20/21 14:43) bee stings Allergy (Unknown, Uncoded 12/20/21 14:43) Home Medications: Acetaminophen 325 mg [Tylenol 325 mg] 650 mg PO Q4HPRN PRN 02/18/22 [History] Allopurinol 100 mg [Zyloprim 100 mg] 200 mg PO DAILY 02/18/22 [History] Bscxy-Q-Fnxxoevrwyuwv [Beano] 800 unit PO DAILY 02/18/22 [History] Aspirin EC 81 mg [Ecotrin 81 mg] 81 mg PO DAILY 02/18/22 [History] Budesonide/Formoterol Fumarate [Budesonide-Formoterol 160-4.5] 2 puff IH BID 02/18/22 [History] Bumetanide 1 mg [Bumex 1 mg] 2 mg PO DAILY 02/18/22 [History] Cholecalciferol (Vitamin D3) [Vitamin D] 1 tab PO DAILY 02/18/22 [History] Clopidogrel Bisulfate [Clopidogrel] 75 mg PO DAILY 02/18/22 [History] Cyanocobalamin 500 Mcg [Vitamin B-12 500 MCG] 1,000 mcg PO DAILY 02/18/22 [History] Fenofibrate Nanocrystallized [Fenofibrate] 48 mg PO HS 02/18/22 [History] Fluticasone Propionate [Flovent Diskus] 1 spray IH DAILY 02/18/22 [History] Folic Acid 1 mg [Folate 1 mg] 1 mg PO DAILY 02/18/22 [History] Glipizide 5 mg [Glucotrol 5 MG] 5 mg PO DAILY 02/18/22 [History] Isosorbide Mononitrate [Isosorbide Mononitrate ER] 60 mg PO DAILY 02/18/22 [History] Lactulose [Lactulose 20 gm/30Ml Ud Cup] 30 ml PO Q12H PRN PRN 02/18/22 [History] Levothyroxine Sodium 75 Mcg [Synthroid 75 Mcg] 75 mcg PO DAILY 02/18/22 [History] Loratadine 10 mg [Claritin 10 mg] 10 mg PO UD 02/18/22 [History] Metolazone 2.5 mg [Zaroxolyn 2.5 MG] 2.5 mg PO UD 02/18/22 [History] Metoprolol Tartrate 25 mg [Lopressor 25MG Tab] 25 mg PO BID 02/18/22 [History] Nitroglycerin 0.4 mg Tablet [Nitrostat 0.4 MG Tablet] 0.4 mg SL UD PRN 02/18/22 [History] [place]-3 Fatty Acids/Fish Oil [Fish Oil 1,000 mg Capsule] 1,000 mg PO TID 02/18/22 [History] Omeprazole 20 mg PO HS 02/18/22 [History] Oxybutynin Chloride 5 mg PO TID 02/18/22 [History] Potassium Chloride Tab* [Klor Con] 20 meq PO BID 02/18/22 [History] Primidone 50 MG [Mysoline 50Mg] 100 mg PO TID 02/18/22 [History] Propylene Glycol/Peg 400/Pf [Systane Ultra 0.4-0.3% Eye Drp] 1 drop DROPS Q6HPRN PRN 02/18/22 [History] Psyllium Packet [Metamucil PACKET] 1 pkt PO HS 02/18/22 [History] Repaglinide 2 mg PO UD 02/18/22 [History] Sertraline HCl 50 mg [Zoloft 50 mg Tablet] 150 mg PO HS 02/18/22 [History] Tamsulosin HCl 0.4 mg [Flomax 0.4 MG] 0.4 mg PO HS 02/18/22 [History] Tramadol HCl 50 mg [Ultram 50 mg] 50 mg PO BID PRN 02/18/22 [History] Hx Tetanus, Diphtheria Vaccination/Date Given: Yes Hx Influenza Vaccination/Date Given: No Hx Pneumococcal Vaccination/Date Given: No Immunizations Up to Date: Yes Travel Risk - International Travel Have you traveled outside of the country in past 3 weeks: No - Coronavirus Screening Are you exhibiting any of the following symptoms?: No Close contact with a COVID-19 positive Pt in past 14-21 Days: No - Vaccine Status Have you recieved a Covid-19 vaccination: (unknown) - Vaccination Dates Date of 2cond Vaccination (if applicable): na - Review of Systems Constitutional: No Symptoms Eyes: No Symptoms Ears, Nose, & Throat: No Symptoms Respiratory: No Symptoms Cardiac: No Symptoms Abdominal/Gastrointestinal: No Symptoms Genitourinary Symptoms: No Symptoms Musculoskeletal: No Symptoms Skin: No Symptoms Neurological: No Dizziness, No Focal Weakness, No Gait Changes, No Headache, No Irritability, No Lethargy, No Paralysis, No Parasthesia, No Seizure, No Sensory Changes, No Speech Changes, No Tics, No Tremors, No Vertigo Psychological: No Symptoms Endocrine: No Symptoms Hematologic/Lymphatic: No Symptoms Immunological/Allergic: No Symptoms - Past Medical History Pertinent Past Medical History: Yes Neurological History: Stroke ENT History: Cataracts Cardiac History: Arrhythmia, Congestive Heart Failure, Coronary Artery Disease, Deep Vein Thrombosis, High Cholesterol, Hypertension, Myocardial Infarction ([place]), Other Respiratory History: Asthma, CHF, COPD, Emphysema, Sleep Apnea Endocrine Medical History: Diabetes Type I, Diabetes Type II, Hypothyroidism Musculoskeletal History: Arthritis, Osteoarthritis GI Medical History: Crohns Disease, Diverticulitis, GERD History: Other Psycho-Social History: Anxiety Male Reproductive Disorders: Other Other Medical History: ruptured aorta during PTCA. DVT in 1969's, Occassional PVC's Pt has sleep apnea but doesn't wear his cpap. Pt wears 4L n/c at night. NIDDM.Pt checks his blood sugar every 2-3 days. - Past Surgical History Past Surgical History: Yes Neuro Surgical History: No Pertinent History Cardiac: Angioplasty, Cardiac Catheterization, Cardiac Stent, Vascular Surgery, Other Respiratory: No Pertinent History Gastrointestinal: No Pertinent History Genitourinary: No Pertinent History Musculoskeletal: Amputation Male Surgical History: No Pertinent History Other Surgical History: LBKA Right carotid endartectomy, PTCA, Ruptured aorta, [place] when aorta ruptured and pt also had a stroke at that time in 1995 Pt has had 17 minor and major surgeries to his left leg prior to his amputation. Hx of skin cancer to left elbow. Pt has had 3 cardiac stents placed at 3 different times for a total of 9 cardiac stents. Cataract surgery left eye - Social History Smoking Status: Former smoker How long have you smoked: 3 years Exposure to second hand smoke: No Drug Use: none Patient Lives Alone: No Significant Family History: no pertinent family hx - Nursing Vital Signs Nursing Vital Signs: Initial Vital Signs Temperature 98.9 F 02/17/22 16:08 Pulse Rate 87 02/17/22 16:08 Respiratory Rate 18 02/17/22 16:08 Blood Pressure 160/76 02/17/22 16:08 O2 Sat by Pulse Oximetry 98 02/17/22 16:08 Pain Scale Pain Intensity 5 Hypertensive - Christian Coma Scale Best Eye Response (Christian): (4) open spontaneously Best Verbal Response (Christian): (4) confused conversation Best Motor Response ([place]): (6) obeys commands Christian Total: 14 - Physical Exam General Appearance: no apparent distress Eye Exam: bilateral eye: normal inspection, PERRL, EOMI Ears, Nose, Throat Exam: normal ENT inspection, TMs normal, pharynx normal, moist mucous membranes Neck Exam: normal inspection, non-tender, supple, full range of motion, No meningismus, No mass, No Brudzinski, No Kernig's Respiratory: airway intact, crackles/rales (Rales at bases B) Cardiovascular: regular rate/rhythm, normal heart sounds, capillary refill <2 sec, No murmur Gastrointestinal: soft, normal bowel sounds, No tenderness Back Exam: normal inspection, normal range of motion Extremity Exam: other (L BKA) 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, 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 Exam: normal hearing, normal speech Motor/Sensory: no motor deficit, no sensory deficit, negative Babinski's sign DTR: bicep (R): 2+, bicep (L): 2+ Skin Exam: normal color SpO2 Interpretation: normal SpO2: 97 O2 Delivery: Room Air - Course Nursing assessment & vital signs reviewed: Yes EKG Interpreted by Me: RATE (NSR/Rate79/Inferior Qwaves/Prolonged QTc/RBBB/Low voltage) - Radiology Exams Chest X-ray Interpretation: Discussed w/ radiologist (L perihilar infiltrate/L pleural effusion) - CT Exams Chest CT Interpretation: Discussed w/radiologist (Patchy airspace dz L>R) Ordered Tests: Active Orders 24 hr Category Date Time Status EKG-ER Only STAT Care 02/17/22 16:47 Completed Heart-Healthy Diet Diet 02/17/22 Breakfast Active CHEST 1 VIEW (PORTABLE) Stat Exams 02/17/22 16:47 Completed CHEST WITHOUT CONTRAST [CT] Stat Exams 02/17/22 20:09 Taken BLOOD CULTURE Stat Lab 02/17/22 20:15 Received CBC W DIFF AM.LAB Lab 02/18/22 04:00 Ordered CBC W DIFF Stat Lab 02/17/22 17:00 Completed CMP AM.LAB Lab 02/18/22 04:00 Ordered CMP Stat Lab 02/17/22 17:00 Completed Lactic Acid Stat Lab 02/17/22 16:47 Completed NT PRO BNP Stat Lab 02/17/22 17:00 Completed PROTIME WITH INR Stat Lab 02/17/22 17:00 Completed PTT Stat Lab 02/17/22 17:00 Completed TROPONIN Q4H Lab 02/17/22 22:45 Completed TROPONIN Q4H Lab 02/18/22 02:30 Ordered TROPONIN Q4H Lab 02/18/22 06:30 Ordered TROPONIN Stat Lab 02/17/22 17:00 Completed TROPONIN Stat Lab 02/17/22 20:05 Completed Medication Summary Generic Name Dose Route Start Last Admin Trade Name Gabe PRN Reason Stop Dose Admin Sodium Chloride 1,000 mls @ 70 mls/hr 02/17/22 22:30 02/17/22 23:36 Sodium Chloride 0.9% 1000 Ml IV 03/19/22 22:29 70 mls/hr .[id number] MIN Administration Azithromycin 500 mg in 250 mls @ 250 mls/hr 02/18/22 22:32 02/17/22 23:36 Zithromax 500 Mg/ 250 Ml Nacl Premix IV 02/18/22 23:31 250 mls/hr ONCE ONE Administration Ondansetron HCl 4 mg 02/17/22 22:29 Ondansetron Hcl 4 Mg/2 Ml Vial IV 03/19/22 22:28 Q6H PRN PRN NAUSEA/VOMITING Pantoprazole Sodium 40 mg 02/18/22 10:00 Pantoprazole 40 Mg Vial IV 03/20/22 09:59 Q24H10 MIN Fluticasone/Salmeterol 2 puff 02/18/22 07:00 Fluticasone/Salmeterol 115/21 - 120 Puff Common Canister IH 03/20/22 06:59 BIDRT MIN Discontinued Medications Generic Name Dose Route Start Last Admin Trade Name Gabe PRN Reason Stop Dose Admin Ceftriaxone Sodium/Dextrose 1 g in 50 mls @ 100 mls/hr 02/17/22 22:28 02/17/22 22:46 Rocephin 1 Gm-D5w 50 Ml Bag IV 02/17/22 22:57 100 ml/hr STAT STA 100 mls/hr Administration Ceftriaxone Sodium/Dextrose Confirm 02/17/22 22:36 Rocephin 1 Gm-D5w 50 Ml Bag Administered 02/17/22 22:37 Dose 1 g in 50 mls @ ud IV .STK-MED ONE Azithromycin Confirm 02/17/22 23:36 Zithromax 500 Mg/ 250 Ml Nacl Premix Administered 02/17/22 23:37 Dose 500 mg in 250 mls @ ud IV .STK-MED ONE Lab/Rad Data: Laboratory Result Diagrams 02/17/22 17:00 02/17/22 17:00 Laboratory Results 02/17/22 02/17/22 02/17/22 Range/Units 22:45 20:20 20:05 WBC (4.0-10.5) x10^3/uL RBC (4.1-5.6) x10^6/uL Hgb (12.5-18.0) g/dL Hct (42-50) % MCV (78-100) fL MCH (26-32) pg MCHC (32-36) g/dL RDW (11.5-14.0) % Plt Count (150-450) x10^3/uL MPV (7.5-11.0) fL Gran % (36.0-66.0) % Immature Gran % (Auto) (0.00-0.4) % Nucleat RBC Rel Count (0.00-0.1) % Eos # (Auto) (0-0.5) x10^3/uL Immature Gran # (Auto) (0.00-0.03) x10^3u/L Absolute Lymphs (auto) (1.0-4.6) x10^3/uL Absolute Monos (auto) (0.0-1.3) x10^3/uL Absolute Nucleated RBC (0.00-0.01) x10^3u/L Lymphocytes % (24.0-44.0) % Monocytes % (0.0-12.0) % Eosinophils % (0.00-5.0) % Basophils % (0.0-0.4) % Absolute Granulocytes (1.4-6.9) x10^3/uL Basophils # (0-0.4) x10^3/uL PT (9.4-12.5) SECONDS INR (0.8-3.0) APTT (25.1-36.5) SECONDS Sodium (137-145) mmol/L Potassium (3.5-5.1) mmol/L Chloride (98-107) mmol/L Carbon Dioxide (22-30) mmol/L Anion Gap (5-15) MEQ/L BUN (9-20) mg/dL Creatinine (0.66-1.25) mg/dL Estimated GFR ML/MIN Glucose (74-106) mg/dL Lactic Acid (0.4-2.0) Calcium (8.4-10.2) mg/dL Total Bilirubin (0.2-1.3) mg/dL AST (17-59) U/L ALT (0-50) U/L Alkaline Phosphatase (38-126) U/L Troponin I 0.019 0.021 (0.000-0.034) ng/mL NT-Pro-B Natriuret Pep (0-1800) pg/mL Serum Total Protein (6.3-8.2) g/dL Albumin (3.5-5.0) g/dL Influenza Type A Ag NEGATIVE (NEGATIVE) Influenza Type B Ag NEGATIVE (NEGATIVE) RSV (PCR) NEGATIVE (Negative) SARS-CoV-2 (PCR) NEGATIVE (NEGATIVE) 02/17/22 02/17/22 02/17/22 Range/Units 17:00 17:00 17:00 WBC 7.3 (4.0-10.5) x10^3/uL RBC 3.47 L (4.1-5.6) x10^6/uL Hgb 10.7 L (12.5-18.0) g/dL Hct 33.2 L (42-50) % MCV 95.7 (78-100) fL MCH 30.8 (26-32) pg MCHC 32.2 (32-36) g/dL RDW 17.3 H (11.5-14.0) % Plt Count 236 (150-450) x10^3/uL MPV 9.9 (7.5-11.0) fL Gran % 72.5 H (36.0-66.0) % Immature Gran % (Auto) 0.5 H (0.00-0.4) % Nucleat RBC Rel Count 0.0 (0.00-0.1) % Eos # (Auto) 0.16 (0-0.5) x10^3/uL Immature Gran # (Auto) 0.04 H (0.00-0.03) x10^3u/L Absolute Lymphs (auto) 1.13 (1.0-4.6) x10^3/uL Absolute Monos (auto) 0.65 (0.0-1.3) x10^3/uL Absolute Nucleated RBC 0.00 (0.00-0.01) x10^3u/L Lymphocytes % 15.5 L (24.0-44.0) % Monocytes % 8.9 (0.0-12.0) % Eosinophils % 2.2 (0.00-5.0) % Basophils % 0.4 (0.0-0.4) % Absolute Granulocytes 5.27 (1.4-6.9) x10^3/uL Basophils # 0.03 (0-0.4) x10^3/uL PT 13.5 H (9.4-12.5) SECONDS INR 1.30 (0.8-3.0) APTT 38.1 H (25.1-36.5) SECONDS Sodium 132 L (137-145) mmol/L Potassium 4.0 (3.5-5.1) mmol/L Chloride 89 L (98-107) mmol/L Carbon Dioxide 29 (22-30) mmol/L Anion Gap 16.9 H (5-15) MEQ/L BUN 73 H (9-20) mg/dL Creatinine 1.61 H (0.66-1.25) mg/dL Estimated GFR 44.7 ML/MIN Glucose 100 (74-106) mg/dL Lactic Acid (0.4-2.0) Calcium 10.3 H (8.4-10.2) mg/dL Total Bilirubin 1.00 (0.2-1.3) mg/dL AST 44 (17-59) U/L ALT 25 (0-50) U/L Alkaline Phosphatase 161 H (38-126) U/L Troponin I 0.019 (0.000-0.034) ng/mL NT-Pro-B Natriuret Pep 328 (0-1800) pg/mL Serum Total Protein 8.9 H (6.3-8.2) g/dL Albumin 4.1 (3.5-5.0) g/dL Influenza Type A Ag (NEGATIVE) Influenza Type B Ag (NEGATIVE) RSV (PCR) (Negative) SARS-CoV-2 (PCR) (NEGATIVE) 02/17/22 Range/Units 16:47 WBC (4.0-10.5) x10^3/uL RBC (4.1-5.6) x10^6/uL Hgb (12.5-18.0) g/dL Hct (42-50) % MCV (78-100) fL MCH (26-32) pg MCHC (32-36) g/dL RDW (11.5-14.0) % Plt Count (150-450) x10^3/uL MPV (7.5-11.0) fL Gran % (36.0-66.0) % Immature Gran % (Auto) (0.00-0.4) % Nucleat RBC Rel Count (0.00-0.1) % Eos # (Auto) (0-0.5) x10^3/uL Immature Gran # (Auto) (0.00-0.03) x10^3u/L Absolute Lymphs (auto) (1.0-4.6) x10^3/uL Absolute Monos (auto) (0.0-1.3) x10^3/uL Absolute Nucleated RBC (0.00-0.01) x10^3u/L Lymphocytes % (24.0-44.0) % Monocytes % (0.0-12.0) % Eosinophils % (0.00-5.0) % Basophils % (0.0-0.4) % Absolute Granulocytes (1.4-6.9) x10^3/uL Basophils # (0-0.4) x10^3/uL PT (9.4-12.5) SECONDS INR (0.8-3.0) APTT (25.1-36.5) SECONDS Sodium (137-145) mmol/L Potassium (3.5-5.1) mmol/L Chloride (98-107) mmol/L Carbon Dioxide (22-30) mmol/L Anion Gap (5-15) MEQ/L BUN (9-20) mg/dL Creatinine (0.66-1.25) mg/dL Estimated GFR ML/MIN Glucose (74-106) mg/dL Lactic Acid 1.1 (0.4-2.0) Calcium (8.4-10.2) mg/dL Total Bilirubin (0.2-1.3) mg/dL AST (17-59) U/L ALT (0-50) U/L Alkaline Phosphatase (38-126) U/L Troponin I (0.000-0.034) ng/mL NT-Pro-B Natriuret Pep (0-1800) pg/mL Serum Total Protein (6.3-8.2) g/dL Albumin (3.5-5.0) g/dL Influenza Type A Ag (NEGATIVE) Influenza Type B Ag (NEGATIVE) RSV (PCR) (Negative) SARS-CoV-2 (PCR) (NEGATIVE) - Progress Progress Note: 02/17/22 22:[address] Morrow Blood cultures x2 1gm IV rocephin Discussed with DrAyaka: Nita Counseled pt/family regarding: lab results, diagnosis, need for follow-up, rad results - Departure Departure Disposition: Observation Clinical Impression: Pneumonia, Renal failure, Confusion Condition: Stable Critical Care Time: No
[2022-02-17] MEDS ORDERED: ROCEPHIN 1 Gm-D5w 50 ml Bag** 1 G/50 ML IVPB IV STA (22:28)
[2022-02-17] MEDS ORDERED: Zofran 4 MG/2 ML VIAL IV PRN (22:29)
[2022-02-17] MEDS ORDERED: ROCEPHIN 1 Gm-D5w 50 ml Bag** 1 G/50 ML IVPB IV ONE (22:36)
[2022-02-17] MEDS ORDERED: Zithromax 500 MG/ 250 ML NaCl Premix 500 MG/250 ML IVPB IV ONE (23:36)
[2022-02-17] MEDS: Sodium Chloride 0.9% 1000 ML 1,000 ML IV SCH (23:36)
[2022-02-18 04:59] LABS: Absolute Neutrophil Ct (ANC) 4.47 x10^3/uL (1.4-6.9); Basophil (Absolute #) 0.02 x10^3/uL (0-0.4); Eosinophil (Absolute #) 0.12 x10^3/uL (0-0.5); Hematocrit 32.7 % (42-50); Hemoglobin 10.7 g/dL (12.5-18.0); Lymphocyte (Absolute #) 0.73 x10^3/uL (1.0-4.6); Lymphocytes % 12.4 % (24.0-44.0); Mean Cell Volume 93.7 fL (78-100); Mean Corpuscular Hemoglobin 30.7 pg (26-32); Mean Corpuscular Hgb Concent. 32.7 g/dL (32-36); Mean Platelet Volume 10.4 fL (7.5-11.0); Monocyte (Absolute #) 0.52 x10^3/uL (0.0-1.3); Monocytes % 8.8 % (0.0-12.0); Neutrophil % 75.7 % (36.0-66.0); Platelet Count 228 x10^3/uL (150-450); Red Blood Count 3.49 x10^6/uL (4.1-5.6); Red Cell Distribution Width 17.4 % (11.5-14.0); White Blood Count 5.9 x10^3/uL (4.0-10.5)
[2022-02-18 05:30] LABS: ALBUMIN 4.2 g/dL (3.5-5.0); ANION GAP 16.3 MEQ/L (5-15); Calcium 9.8 mg/dL (8.4-10.2); Creatinine 1 1.42 mg/dL (0.66-1.25); EST GLOMERULAR FILTRATION RATE 51.7 ML/MIN; Potassium 3.5 mmol/L (3.5-5.1); Total Protein 8.5 g/dL (6.3-8.2)
[2022-02-18] MEDS ORDERED: TYLENOL 325 MG PO PRN (08:40)
[2022-02-18] MEDS ORDERED: PROPYLENE GLYCOL DROPS PRN (08:40)
[2022-02-18] MEDS ORDERED: Nitrostat 0.4 MG Tablet SL PRN (08:40)
[2022-02-18] MEDS ORDERED: [UNRECOGNIZED DRUG - OTHER] DROPS PRN (08:40)
[2022-02-18] MEDS ORDERED: PEG DROPS PRN (08:40)
[2022-02-18] MEDS ORDERED: LACTULOSE 20 GM/30ML UD CUP PO PRN (08:40)
--- NOTE | 2022-02-18 08:44 | XRAY ---
Indication: Cough, confusion, and crackles. Abnormal same day chest radiograph. Multiple contiguous axial images obtained through the chest without contrast. Comparison: None Lungs demonstrates left upper lobe consolidating/nonconsolidating airspace disease. Lesser diffuse patchy airspace disease seen bilaterally. Incidental bilateral subsegmental atelectasis/scarring and scattered tiny calcified granulomas. No effusion. Heart is not enlarged with extensive coronary calcifications and CABG surgery. Aorta is moderately atherosclerotic without aneurysm. Tiny paratracheal and left hilar calcified nodes. No pathologic mediastinal lymphadenopathy. Bony thorax intact with osteopenia and mild/moderate degenerative changes throughout the spine. Limited upper abdomen demonstrates fatty liver. Impression: 1. Bilateral patchy airspace disease, left greater than right. Rule out Covid 19 pneumonia. 2. Subsegmental atelectasis/scarring, chronic bony findings, fatty liver, arteriosclerotic disease, and old granulomatous disease.
[2022-02-18] MEDS ORDERED: REPAGLINIDE 2 MG PO SCH (08:45)
[2022-02-18] MEDS ORDERED: Artificial Tears 15 ML OP PRN (08:58)
[2022-02-18] MEDS ORDERED: MEDICATION INTERVENTION MC SCH ×2 (09:30)
[2022-02-18] MEDS: FISH OIL 1,000 MG CAPSULE PO SCH ×3 (09:43→23:03)
[2022-02-18] MEDS: MYSOLINE 50MG PO SCH ×3 (09:43→23:10)
[2022-02-18] MEDS: BUMEX 1 MG PO SCH (09:43)
[2022-02-18] MEDS: VITAMIN D PO SCH (09:43)
[2022-02-18] MEDS: ECOTRIN 81 MG PO SCH (09:43)
[2022-02-18] MEDS: Klor Con PO SCH ×2 (09:43→23:03)
[2022-02-18] MEDS: Lopressor 25MG Tab PO SCH ×2 (09:44→23:03)
[2022-02-18] MEDS: ZYLOPRIM 100 MG PO SCH (09:44)
[2022-02-18] MEDS: Flonase NASAL NS SCH (09:44)
[2022-02-18] MEDS: Imdur 60MG PO SCH (09:44)
[2022-02-18] MEDS: SYNTHROID 75 MCG PO SCH (09:44)
[2022-02-18] MEDS: FOLATE 1 MG PO SCH (09:44)
[2022-02-18] MEDS: Vitamin B-12 500 MCG PO SCH (09:44)
[2022-02-18] MEDS: PLAVIX Tablet PO SCH (09:44)
[2022-02-18] MEDS: Ditropan 5 MG PO SCH ×3 (09:44→23:03)
[2022-02-18] MEDS: Glucotrol 5 MG PO SCH (09:44)
[2022-02-18] MEDS ORDERED: NON-FORMULARY ITEM (Fluticasone Propionate [Flovent Diskus] 50 MCG Blst.W.Dev) IH SCH (10:00)
[2022-02-18] MEDS ORDERED: CLARITIN 10 MG PO SCH (10:00)
[2022-02-18] MEDS ORDERED: PROTONIX 40 MG IV IV SCH (10:00)
[2022-02-18] MEDS ORDERED: ALPHA D GALACTOSIDASE 400 UNIT PO SCH (10:00)
[2022-02-18] MEDS ORDERED: Zaroxolyn 2.5 MG PO SCH (10:00)
[2022-02-18] MEDS: Advair Hfa 115/21 Common canister IH SCH ×2 (10:51→18:44)
[2022-02-18] MEDS: Sodium Chloride 0.9% 1000 ML 1,000 ML IV SCH (14:37)
[2022-02-18] MEDS: ULTRAM 50 MG PO PRN (14:44)
[2022-02-18] MEDS ORDERED: NON-FORMULARY ITEM (Fenofibrate Nanocrystallized [Fenofibrate] 48 MG Tablet) PO SCH (22:00)
[2022-02-18] MEDS ORDERED: ROCEPHIN 1 Gm-D5w 50 ml Bag** 1 G/50 ML IVPB IV SCH (22:00)
[2022-02-18] MEDS ORDERED: ZOLOFT 50 MG TABLET PO SCH (22:00)
[2022-02-18] MEDS ORDERED: NON-FORMULARY ITEM (Psyllium Packet*** [Metamucil Packet***] 1 PKT Packet) PO SCH (22:00)
[2022-02-18] MEDS ORDERED: Flomax 0.4 MG PO SCH (22:00)
[2022-02-18] MEDS ORDERED: Protonix 40MG Tablet PO SCH (22:00)
[2022-02-18] MEDS ORDERED: Tricor 145 MG PO SCH (22:00)
[2022-02-18] MEDS ORDERED: NON-FORMULARY ITEM (Omeprazole [Omeprazole] 20 MG Capsule.Dr) PO SCH (22:00)
[2022-02-18] MEDS ORDERED: Zithromax 500 MG/ 250 ML NaCl Premix 500 MG/250 ML IVPB IV SCH (22:00)
[2022-02-18] MEDS ORDERED: Zithromax 500 MG/ 250 ML NaCl Premix 500 MG/250 ML IVPB IV ONE (22:32)
[2022-02-18] MEDS: Metamucil PACKET PO SCH ×2 (22:49→23:01)
[2022-02-19 05:17] LABS: Hemoglobin 9.5 g/dL (12.5-18.0); Mean Cell Volume 95.8 fL (78-100); Mean Corpuscular Hemoglobin 30.4 pg (26-32); Mean Corpuscular Hgb Concent. 31.7 g/dL (32-36); Mean Platelet Volume 11.6 fL (7.5-11.0); Platelet Count 213 x10^3/uL (150-450); Red Blood Count 3.13 x10^6/uL (4.1-5.6); Red Cell Distribution Width 17.2 % (11.5-14.0); White Blood Count 4.7 x10^3/uL (4.0-10.5)
[2022-02-19] MEDS: Sodium Chloride 0.9% 1000 ML 1,000 ML IV SCH (05:20)
[2022-02-19] MEDS: ULTRAM 50 MG PO PRN (05:24)
[2022-02-19 06:11] LABS: ANION GAP 10.7 MEQ/L (5-15); Calcium 9.4 mg/dL (8.4-10.2); Creatinine 1 1.33 mg/dL (0.66-1.25); EST GLOMERULAR FILTRATION RATE 55.7 ML/MIN; Potassium 3.1 mmol/L (3.5-5.1)
[2022-02-19] MEDS: Advair Hfa 115/21 Common canister IH SCH (06:25)
[2022-02-19] MEDS: SYNTHROID 75 MCG PO SCH (06:36)
[2022-02-19] MEDS: Glucotrol 5 MG PO SCH (06:36)
[2022-02-19] MEDS: Klor Con PO SCH (09:33)
[2022-02-19] MEDS: MYSOLINE 50MG PO SCH (09:33)
[2022-02-19] MEDS: VITAMIN D PO SCH (09:33)
[2022-02-19] MEDS: FOLATE 1 MG PO SCH (09:33)
[2022-02-19] MEDS: FISH OIL 1,000 MG CAPSULE PO SCH (09:33)
[2022-02-19] MEDS: Lopressor 25MG Tab PO SCH (09:33)
[2022-02-19] MEDS: Ditropan 5 MG PO SCH (09:33)
[2022-02-19] MEDS: PLAVIX Tablet PO SCH (09:33)
[2022-02-19] MEDS: ECOTRIN 81 MG PO SCH (09:33)
[2022-02-19] MEDS: ZYLOPRIM 100 MG PO SCH (09:33)
[2022-02-19] MEDS: Vitamin B-12 500 MCG PO SCH (09:33)
[2022-02-19] MEDS: Imdur 60MG PO SCH (09:34)
[2022-02-19] MEDS: Flonase NASAL NS SCH (09:34)
[2022-02-19] MEDS: BUMEX 1 MG PO SCH (09:34)
--- NOTE | 2022-02-19 09:53 | XRAY ---
Indication: Follow-up pneumonia. Comparison: February 17, 2022 Portable chest unchanged again demonstrating mild left perihilar airspace disease and left costophrenic angle blunting. Remaining heart and lungs unremarkable again with incidental CABG.
[2022-02-19 12:15] VITALS: BP 105/55; PULSE 79; O2SAT 96
--- NOTE | 2022-03-03 11:06 | PCM.SSS ---
History of Present Illness - Chief Complaint Chief Complaint: Pneumonia Date: 02/19/22 History of Present Illness: is a 77 year old male. Presented to ER for possible confusion per daughter while talking on phone, pt. was oriented to baseline at ER, evaluation in ER found acute kidney failure from mild dehydration and pneumonia, pt. admitted for further care and evaluation through ER. - Review of Systems Constitutional: No Fever, No Chills Eyes: No Symptoms Ears, Nose, & Throat: No Symptoms Respiratory: No Cough, No Short Of Breath Cardiac: No Chest Pain, No Edema, No Syncope Abdominal/Gastrointestinal: No Abdominal Pain, No Nausea, No Vomiting, No Diarrhea Genitourinary Symptoms: No Dysuria Musculoskeletal: No Back Pain, No Neck Pain Skin: No Rash Neurological: No Dizziness, No Focal Weakness, No Sensory Changes Psychological: No Symptoms Endocrine: No Symptoms Hematologic/Lymphatic: No Symptoms Immunological/Allergic: No Symptoms Medications & Allergies Home Medications: Home Medication List Acetaminophen 325 mg [Tylenol 325 mg] 650 mg PO Q4HPRN PRN 02/18/22 [History Confirmed 02/18/22] Allopurinol 100 mg [Zyloprim 100 mg] 200 mg PO DAILY 02/18/22 [History Confirmed 02/18/22] Afvhv-U-Zebbyqaxkepgi [Beano] 800 unit PO DAILY 02/18/22 [History Confirmed 02/18/22] Aspirin EC 81 mg [Ecotrin 81 mg] 81 mg PO DAILY 02/18/22 [History Confirmed 02/18/22] Budesonide/Formoterol Fumarate [Budesonide-Formoterol 160-4.5] 2 puff IH BID 02/18/22 [History Confirmed 02/18/22] Bumetanide 1 mg [Bumex 1 mg] 2 mg PO DAILY 02/18/22 [History Confirmed 02/18/22] Cholecalciferol (Vitamin D3) [Vitamin D] 1 tab PO DAILY 02/18/22 [History Confirmed 02/18/22] Clopidogrel Bisulfate [Clopidogrel] 75 mg PO DAILY 02/18/22 [History Confirmed 02/18/22] Cyanocobalamin 500 Mcg [Vitamin B-12 500 MCG] 1,000 mcg PO DAILY 02/18/22 [History Confirmed 02/18/22] Fenofibrate Nanocrystallized [Fenofibrate] 48 mg PO HS 02/18/22 [History Confirmed 02/18/22] Fluticasone Propionate [Flovent Diskus] 1 spray IH DAILY 02/18/22 [History Confirmed 02/18/22] Folic Acid 1 mg [Folate 1 mg] 1 mg PO DAILY 02/18/22 [History Confirmed 02/18/22] Glipizide 5 mg [Glucotrol 5 MG] 5 mg PO DAILY 02/18/22 [History Confirmed 02/18/22] Isosorbide Mononitrate [Isosorbide Mononitrate ER] 60 mg PO DAILY 02/18/22 [History Confirmed 02/18/22] Lactulose [Lactulose 20 gm/30Ml Ud Cup] 30 ml PO Q12H PRN PRN 02/18/22 [History Confirmed 02/18/22] Levothyroxine Sodium 75 Mcg [Synthroid 75 Mcg] 75 mcg PO DAILY 02/18/22 [History Confirmed 02/18/22] Loratadine 10 mg [Claritin 10 mg] 10 mg PO UD 02/18/22 [History Confirmed 02/18/22] Metolazone 2.5 mg [Zaroxolyn 2.5 MG] 2.5 mg PO UD 02/18/22 [History Confirmed 02/18/22] Metoprolol Tartrate 25 mg [Lopressor 25MG Tab] 25 mg PO BID 02/18/22 [History Confirmed 02/18/22] Nitroglycerin 0.4 mg Tablet [Nitrostat 0.4 MG Tablet] 0.4 mg SL UD PRN 02/18/22 [History Confirmed 02/18/22] Goodman-3 Fatty Acids/Fish Oil [Fish Oil 1,000 mg Capsule] 1,000 mg PO TID 02/18/22 [History Confirmed 02/18/22] Omeprazole 20 mg PO HS 02/18/22 [History Confirmed 02/18/22] Oxybutynin Chloride 5 mg PO TID 02/18/22 [History Confirmed 02/18/22] Potassium Chloride Tab* [Klor Con] 20 meq PO BID 02/18/22 [History Confirmed 02/18/22] Primidone 50 MG [Mysoline 50Mg] 100 mg PO TID 02/18/22 [History Confirmed 02/18/22] Propylene Glycol/Peg 400/Pf [Systane Ultra 0.4-0.3% Eye Drp] 1 drop DROPS Q6HPRN PRN 02/18/22 [History Confirmed 02/18/22] Psyllium Packet [Metamucil PACKET] 1 pkt PO HS 02/18/22 [History Confirmed 02/18/22] Repaglinide 2 mg PO UD 02/18/22 [History Confirmed 02/18/22] Sertraline HCl 50 mg [Zoloft 50 mg Tablet] 150 mg PO HS 02/18/22 [History Confirmed 02/18/22] Tamsulosin HCl 0.4 mg [Flomax 0.4 MG] 0.4 mg PO HS 02/18/22 [History Confirmed 02/18/22] Tramadol HCl 50 mg [Ultram 50 mg] 50 mg PO BID PRN 02/18/22 [History Confirmed 02/18/22] Amox Tr/Potass Clav. 875 mg [Augmentin 875-125 Tablet] 875 mg PO BID 10 Days #20 tablet 02/19/22 [Rx] Azithromycin [Azithromycin 250 mg Pack] 250 mg PO UD #6 tablet 02/19/22 [Rx] Allergies/Adverse Reactions: Allergies Allergy/AdvReac Type Severity Reaction Status Date / Time polyurethane Allergy Severe Rash Uncoded 12/20/21 14:43 raw apples Allergy Severe Uncoded 12/20/21 14:43 neoprene Allergy Intermediate Uncoded 12/20/21 14:43 tb tests Allergy Intermediate Uncoded 12/20/21 14:43 bee stings Allergy Unknown Uncoded 12/20/21 14:43 - Past Medical History Past Medical History: Yes Neurological History: Stroke ENT History: Cataracts Cardiac History: Arrhythmia, Congestive Heart Failure, Coronary Artery Disease, Deep Vein Thrombosis, High Cholesterol, Hypertension, Myocardial Infarction (MT), Other Respiratory History: Asthma, CHF, COPD, Emphysema, Sleep Apnea Endocrine Medical History: Diabetes Type I, Diabetes Type II, Hypothyroidism Musculoskelatal History: Arthritis, Osteoarthritis GI Medical History: Crohns Disease, Diverticulitis, GERD History: Other Pyscho-Social History: Anxiety Male Reproductive Disorders: Other Comment: ruptured aorta during PTCA. DVT in 1969's, Occassional PVC's Pt has sleep apnea but doesn't wear his cpap. Pt wears 4L n/c at night. NIDDM.Pt checks his blood sugar every 2-3 days. - Past Surgical History Past Surgical History: Yes Neuro Surgical History: No Pertinent History Cardiac History: Angioplasty, Cardiac Catheterization, Cardiac Stent, Vascular Surgery, Other Respiratory Surgery: No Pertinent History GI Surgical History: No Pertinent History Genitourinary Surgical Hx: No Pertinent History Musculskeletal Surgical Hx: Amputation Male Surgical History: No Pertinent History Other Surgical History: [facility] Right carotid endartectomy, PTCA, Ruptured aorta, [place] when aorta ruptured and pt also had a stroke at that time in 1995 Pt has had 17 minor and major surgeries to his left leg prior to his amputation. Hx of skin cancer to left elbow. Pt has had 3 cardiac stents placed at 3 different times for a total of 9 cardiac stents. Cataract surgery left eye - Social History Smoking Status: Former smoker How long have you smoked: 3 years Exposure to second hand smoke: No Alcohol: None Drug Use: none Significant Family History: no pertinent family hx - Physical Exam General Appearance: no apparent distress, alert Neurologic Exam: alert, oriented x 3, cooperative, normal mood/affect, nml cerebellar function, nml station & gait, sensation nml, No motor deficits Eye Exam: PERRL/EOMI, eyes nml inspection Ears, Nose, Throat Exam: normal ENT inspection, pharynx normal, moist mucous membranes Neck Exam: normal inspection, non-tender, supple, full range of motion Respiratory Exam: normal breath sounds, lungs clear, No respiratory distress Cardiovascular Exam: regular rate/rhythm, normal heart sounds, normal peripheral pulses Gastrointestinal/Abdomen Exam: soft, normal bowel sounds, No tenderness, No mass Back Exam: normal inspection, normal range of motion, No CVA tenderness, No vertebral tenderness Extremity Exam: normal inspection, normal range of motion, pelvis stable Skin Exam: normal color, warm, dry, No rash Lymphatic Exam: No adenopathy Results - Labs Lab/Micro Results: Microbiology 02/17/22 20:15 Blood Culture Gram Stain - Final Blood Not Reportable Blood Culture - Final NO GROWTH 02/17/22 20:15 Blood Culture Gram Stain - Final Blood Not Reportable Blood Culture - Final NO GROWTH 02/17/22 Unknown Urine Culture - Final Clean Catch Midstream Proteus Mirabilis Assessment/Plan (1) Acute kidney failure Status: Acute (2) Altered mental status Status: Acute Code(s): R41.82 - ALTERED MENTAL STATUS, UNSPECIFIED (3) Pneumonia Status: Acute Code(s): J18.9 - PNEUMONIA, UNSPECIFIED ORGANISM Hospital Summary - Hospital Course Hospital Course: Pt. initiated on iv abx for pneumonia and gently hydrated for the acute kidney failure related to mild volume depletion. Pt. was at baseline the following day of exam and labs confirmed baseline had been obtained. Pt. was stable for discharge back to [place] with continued op treatment with oral abx for pneumonia. - Vitals & Intake/Output Vital Signs: Vital Signs Temperature 98.2 F 02/19/22 12:00 Pulse Rate 79 02/19/22 12:00 Respiratory Rate 16 02/19/22 12:00 Blood Pressure 105/55 02/19/22 12:00 O2 Sat by Pulse Oximetry 96 02/19/22 12:00 - Lab Result Diagrams: 02/19/22 04:35 02/19/22 04:35 Micro Results-Entire Visit: Microbiology 02/17/22 20:15 Blood Culture Gram Stain - Final Blood Not Reportable Blood Culture - Final NO GROWTH 02/17/22 20:15 Blood Culture Gram Stain - Final Blood Not Reportable Blood Culture - Final NO GROWTH 02/17/22 Unknown Urine Culture - Final Clean Catch Midstream Proteus Mirabilis - Procedures and Test Procedures and Tests throughout Hospitalization: Therapy Orders & Screens 02/18/22 01:21 Respiratory Therapy Assessment DAILY Comment: Diagnosis: Pneumonia 02/18/22 07:00 Respiratory MDI BID Comment: CHIP 115/21 2 PUFFS BID Diagnosis: Pneumonia - Discharge Discharge Date: 02/19/22 Disposition: [facility] TO [facility] Condition: Stable Prescriptions: New Amox Tr/Potass Clav. 875 mg [Augmentin 875-125 Tablet] 875 mg PO BID 10 Days #20 tablet Azithromycin [Azithromycin 250 mg Pack] 250 mg PO UD #6 tablet Continue Tramadol HCl 50 mg [Ultram 50 mg] 50 mg PO BID PRN PRN Reason: Pain Propylene Glycol/Peg 400/Pf [Systane Ultra 0.4-0.3% Eye Drp] 1 drop DROPS Q6HPRN PRN PRN Reason: dry eyes Levothyroxine Sodium 75 Mcg [Synthroid 75 Mcg] 75 mcg PO DAILY Sertraline HCl 50 mg [Zoloft 50 mg Tablet] 150 mg PO HS Budesonide/Formoterol Fumarate [Budesonide-Formoterol 160-4.5] 2 puff IH BID Repaglinide 2 mg PO UD Primidone 50 MG [Mysoline 50Mg] 100 mg PO TID Potassium Chloride Tab* [Klor Con] 20 meq PO BID Oxybutynin Chloride 5 mg PO TID Omeprazole 20 mg PO HS Nitroglycerin 0.4 mg Tablet [Nitrostat 0.4 MG Tablet] 0.4 mg SL UD PRN PRN Reason: Chest Pain Metoprolol Tartrate 25 mg [Lopressor 25MG Tab] 25 mg PO BID Metolazone 2.5 mg [Zaroxolyn 2.5 MG] 2.5 mg PO UD Psyllium Packet [Metamucil PACKET] 1 pkt PO HS Loratadine 10 mg [Claritin 10 mg] 10 mg PO UD Lactulose [Lactulose 20 gm/30Ml Ud Cup] 30 ml PO Q12H PRN PRN PRN Reason: bowel care Isosorbide Mononitrate [Isosorbide Mononitrate ER] 60 mg PO DAILY Glipizide 5 mg [Glucotrol 5 MG] 5 mg PO DAILY Folic Acid 1 mg [Folate 1 mg] 1 mg PO DAILY Fluticasone Propionate [Flovent Diskus] 1 spray IH DAILY Tamsulosin HCl 0.4 mg [Flomax 0.4 MG] 0.4 mg PO HS Goodman-3 Fatty Acids/Fish Oil [Fish Oil 1,000 mg Capsule] 1,000 mg PO TID Fenofibrate Nanocrystallized [Fenofibrate] 48 mg PO HS Cyanocobalamin 500 Mcg [Vitamin B-12 500 MCG] 1,000 mcg PO DAILY Clopidogrel Bisulfate [Clopidogrel] 75 mg PO DAILY Cholecalciferol (Vitamin D3) [Vitamin D] 1 tab PO DAILY Bumetanide 1 mg [Bumex 1 mg] 2 mg PO DAILY [id number] [Beano] 800 unit PO DAILY Aspirin EC 81 mg [Ecotrin 81 mg] 81 mg PO DAILY Allopurinol 100 mg [Zyloprim 100 mg] 200 mg PO DAILY Acetaminophen 325 mg [Tylenol 325 mg] 650 mg PO Q4HPRN PRN PRN Reason: pain/temp Additional Instructions: CONTINUE ALL PREVIOUS GROUP HOME ORDERS. SEE ATTACHED MED LIST Forms: Transfer Record Care Home
== END 2022-02-19 11:50 ==
LOC: ED 16:08 → MED SURG 22:50
PROVIDERS: ADMIT Family Medicine; ATTEND Family Medicine
DX: N17.9 Acute kidney failure, unspecified (principal); R41.82 Altered mental status, unspecified; J18.9 Pneumonia, unspecified organism; N39.0 Urinary tract infection, site not specified; I11.0 Hypertensive heart disease with heart failure; I50.9 Heart failure, unspecified; E11.9 Type 2 diabetes mellitus without complications; I25.10 Atherosclerotic heart disease of native coronary artery without angina pectoris; I49.9 Cardiac arrhythmia, unspecified; E78.00 Pure hypercholesterolemia, unspecified; E86.0 Dehydration; E03.9 Hypothyroidism, unspecified; I25.2 Old myocardial infarction; Z79.899 Other long term (current) drug therapy; Z20.828 Contact with and (suspected) exposure to other viral communicable diseases; Z85.828 Personal history of other malignant neoplasm of skin
CPT/HCPCS: 0241U; 36415; 71045; 71250; 80048; 80053; 81015; 83605; 83880; 84153; 84484; 85025; 85027; 85610; 85730; 87040; 87077; 87086; 87186; 93005; 93268; 94640; 94760; 96365; 99285; G0378; P9604; J0456; J0696; A9270-GY

== ENCOUNTER 2022-03-03 16:17 | Inpatient (IN) | payer MEDICARE, BC ==
[2022-03-03 17:54] LABS: Absolute Neutrophil Ct (ANC) 4.99 x10^3/uL (1.4-6.9); Basophil (Absolute #) 0.07 x10^3/uL (0-0.4); Eosinophil % 5.3 % (0.00-5.0); Hematocrit 34.6 % (42-50); Hemoglobin 10.9 g/dL (12.5-18.0); Lymphocyte (Absolute #) 1.58 x10^3/uL (1.0-4.6); Lymphocytes % 20.8 % (24.0-44.0); Mean Cell Volume 96.4 fL (78-100); Mean Corpuscular Hemoglobin 30.4 pg (26-32); Mean Corpuscular Hgb Concent. 31.5 g/dL (32-36); Mean Platelet Volume 11.6 fL (7.5-11.0); Monocyte (Absolute #) 0.47 x10^3/uL (0.0-1.3); Monocytes % 6.2 % (0.0-12.0); Neutrophil % 65.9 % (36.0-66.0); Platelet Count 341 x10^3/uL (150-450); Red Blood Count 3.59 x10^6/uL (4.1-5.6); Red Cell Distribution Width 18.6 % (11.5-14.0); White Blood Count 7.6 x10^3/uL (4.0-10.5)
[2022-03-03 18:11] LABS: ALBUMIN 3.8 g/dL (3.5-5.0); ALKALINE PHOSPHATASE 139 U/L (38-126); ANION GAP 15.1 MEQ/L (5-15); BLOOD UREA NITROGEN 74 mg/dL (9-20); CHLORIDE 99 mmol/L (98-107); Carbon Dioxide 26 mmol/L (22-30); Creatinine 1 1.15 mg/dL (0.66-1.25); EST GLOMERULAR FILTRATION RATE > 60.0 ML/MIN; Glucose 110 mg/dL (74-106); NT PRO BNP 596 pg/mL (0-1800); SGOT/AST 30 U/L (17-59); SGPT/ALT 14 U/L (0-50); SODIUM 135 mmol/L (137-145)
[2022-03-03 18:18] LABS: Potassium 5.5 mmol/L (3.5-5.1)
[2022-03-03 18:41] LABS: INFLUENZA A NEGATIVE (NEGATIVE); INFLUENZA B NEGATIVE (NEGATIVE); RESPIRATORY SYNCTIAL VIRUS NEGATIVE (Negative); SARS-CoV-2 Xpert Express NEGATIVE (NEGATIVE)
--- NOTE | 2022-03-03 19:26 | ERPHSYRPT ---
<DARIN ISLAS - Last Filed: 03/03/22 21:21> - History of Present Illness Source: patient Exam Limitations: no limitations Patient Subjective Stated Complaint: C/O SOB per EMS. Patient is from a correction ([facility]) and staff at the ED have not yet received any report from that facility. Triage Nursing Assessment: Patient arrived by ambulance. He is confused to time, place, and his birthdate. He is alert to name. Patient is awake and answers all questions asked but answer are not always appropriate. No SOB noted. No cough noted. Showing no s/s of pain. Timing/Duration: week(s) (7) Activities at Onset: none Severity of Dyspnea-Max: mild Severity of Dyspnea-Current: mild Possible Cause: frequent episodes Modifying Factors: Improves With: deep breath Associated Symptoms: cough, weakness Hx Tetanus, Diphtheria Vaccination/Date Given: (unknown) Hx Influenza Vaccination/Date Given: (unknown) Hx Pneumococcal Vaccination/Date Given: (unknown) Immunizations Up to Date: (unknown) <SHARMAINE SIMMONS - Last Filed: 03/04/22 16:18> - History of Present Illness Time Seen by Provider: 03/03/22 16:35 Physician History: This is a 77-year-old gentleman brought to the ED via EMS from [facility] complaints of shortness of breath. She states that he has been short of breath the past week, worse over the past 2 days. He said he had pneumonia 2 weeks ago. That he currently has a clear "junky" cough-unable to tell me if the cough is something new / if its been ongoing since he had pneumonia. That he has a history of COPD, CAD, CHF. Takes Bumex. care home was reported that the patient saturations have been lower than normal, been running around 92% for them -Denies any chest pain/weight gain/ LE edema/fever Daughter states that pt. has lost 60 lb since going to [place] and has not required to use his CPAP at bedtime. Pt. is in a [place] due to "physical weakness" per daughter. - (SHARMAINE SIMMONS) Allergies/Adverse Reactions: polyurethane Allergy (Severe, Uncoded 03/03/22 16:19) Rash raw apples Allergy (Severe, Uncoded 03/03/22 16:19) paralysis neoprene Allergy (Intermediate, Uncoded 03/03/22 16:19) rash tb tests Allergy (Intermediate, Uncoded 03/03/22 16:19) bee stings Allergy (Unknown, Uncoded 03/03/22 16:19) Home Medications: Acetaminophen 325 mg [Tylenol 325 mg] 650 mg PO Q4HPRN PRN 02/18/22 [History] Allopurinol 100 mg [Zyloprim 100 mg] 200 mg PO DAILY 02/18/22 [History] Dfgrp-D-Jrrypkojfejrb [Beano] 800 unit PO BID 02/18/22 [History] Aspirin EC 81 mg [Ecotrin 81 mg] 81 mg PO DAILY 02/18/22 [History] Budesonide/Formoterol Fumarate [Budesonide-Formoterol 160-4.5] 2 puff IH BID 02/18/22 [History] Bumetanide 1 mg [Bumex 1 mg] 2 mg PO DAILY 02/18/22 [History] Cholecalciferol (Vitamin D3) [Vitamin D] 1 tab PO DAILY 02/18/22 [History] Clopidogrel Bisulfate [Clopidogrel] 75 mg PO DAILY 02/18/22 [History] Cyanocobalamin 500 Mcg [Vitamin B-12 500 MCG] 1,000 mcg PO DAILY 02/18/22 [History] Fenofibrate Nanocrystallized [Fenofibrate] 48 mg PO HS 02/18/22 [History] Fluticasone Propionate [Flovent Diskus] 1 spray IH DAILY 02/18/22 [History] Folic Acid 1 mg [Folate 1 mg] 1 mg PO DAILY 02/18/22 [History] Glipizide 5 mg [Glucotrol 5 MG] 5 mg PO DAILY 02/18/22 [History] Isosorbide Mononitrate [Isosorbide Mononitrate ER] 60 mg PO DAILY 02/18/22 [History] Lactulose [Lactulose 20 gm/30Ml Ud Cup] 30 ml PO Q12H PRN PRN 02/18/22 [History] Levothyroxine Sodium 75 Mcg [Synthroid 75 Mcg] 75 mcg PO DAILY 02/18/22 [History] Loratadine 10 mg [Claritin 10 mg] 10 mg PO UD 02/18/22 [History] Metolazone 2.5 mg [Zaroxolyn 2.5 MG] 2.5 mg PO UD 02/18/22 [History] Metoprolol Tartrate 25 mg [Lopressor 25MG Tab] 25 mg PO BID 02/18/22 [History] Nitroglycerin 0.4 mg Tablet [Nitrostat 0.4 MG Tablet] 0.4 mg SL UD PRN 02/18/22 [History] Mallie-3 Fatty Acids/Fish Oil [Fish Oil 1,000 mg Capsule] 1,000 mg PO TID 02/18/22 [History] Omeprazole 20 mg PO HS 02/18/22 [History] Oxybutynin Chloride 5 mg PO TID 02/18/22 [History] Potassium Chloride Tab* [Klor Con] 20 meq PO BID 02/18/22 [History] Primidone 50 MG [Mysoline 50Mg] 100 mg PO TID 02/18/22 [History] Propylene Glycol/Peg 400/Pf [Systane Ultra 0.4-0.3% Eye Drp] 1 drop DROPS Q6HPRN PRN 02/18/22 [History] Psyllium Packet [Metamucil PACKET] 1 pkt PO 02/18/22 [History] Repaglinide 2 mg PO 02/18/22 [History] Sertraline HCl 50 mg [Zoloft 50 mg Tablet] 150 mg PO HS 02/18/22 [History] Tamsulosin HCl 0.4 mg [Flomax 0.4 MG] 0.4 mg PO HS 02/18/22 [History] Tramadol HCl 50 mg [Ultram 50 mg] 50 mg PO Q8H PRN 02/18/22 [History] Mineral Oil/Hydrophil Petrolat [Ameriphor Moist Ointment] 113 gm TP 03/03/22 [History] Tramadol HCl 50 mg [Ultram 50 mg] 50 mg PO BID 03/03/22 [History] Travel Risk - International Travel Have you traveled outside of the country in past 3 weeks: No - Coronavirus Screening Are you exhibiting any of the following symptoms?: No Close contact with a COVID-19 positive Pt in past 14-21 Days: No - Vaccine Status Have you recieved a Covid-19 vaccination: (unknown) - Vaccination Dates Date of 2cond Vaccination (if applicable): na <SHARMAINE SIMMONS - Last Filed: 03/04/22 16:18> - Review of Systems Constitutional: No Symptoms, No Fever, No Chills, No Fatigue Eyes: No Symptoms Ears, Nose, & Throat: No Symptoms, No Ear Pain Respiratory: Cough, Dyspnea on Exertion (ZUNIGA) Cardiac: No Symptoms, No Chest Pain, No Palpitations, No Syncope Abdominal/Gastrointestinal: No Symptoms, No Abdominal Pain, No Nausea, No Vomiting, No Hematemesis, No Hematochezia, No Melena Genitourinary Symptoms: No Symptoms, No Dysuria, No Frequency, No Hematuria Musculoskeletal: No Symptoms, No Arthralgias Skin: No Symptoms, No Cellulitis, No Decubiti, No Induration Neurological: No Symptoms, No Dizziness, No Focal Weakness, No Gait Changes Psychological: No Symptoms Endocrine: No Symptoms Hematologic/Lymphatic: No Symptoms Immunological/Allergic: No Symptoms All Other Systems: Reviewed and Negative <SHARMAINE SIMMONS - Last Filed: 03/04/22 16:18> - Past Medical History Pertinent Past Medical History: Yes Neurological History: Stroke ENT History: Cataracts Cardiac History: Arrhythmia, Congestive Heart Failure, Coronary Artery Disease, Deep Vein Thrombosis, High Cholesterol, Hypertension, Myocardial Infarction ([place]), Other Respiratory History: Asthma, CHF, COPD, Emphysema, Sleep Apnea Endocrine Medical History: Diabetes Type I, Diabetes Type II, Hypothyroidism Musculoskeletal History: Arthritis, Osteoarthritis GI Medical History: Crohns Disease, Diverticulitis, GERD History: Other Psycho-Social History: Anxiety Male Reproductive Disorders: Other Other Medical History: Patient's medical history taken from previous chart entry. Patient is a poor historian at this time and unable to answer appropriately. - Past Surgical History Past Surgical History: Yes Neuro Surgical History: No Pertinent History Cardiac: Angioplasty, Cardiac Catheterization, Cardiac Stent, Vascular Surgery, Other Respiratory: No Pertinent History Gastrointestinal: No Pertinent History Genitourinary: No Pertinent History Musculoskeletal: Amputation Male Surgical History: No Pertinent History Other Surgical History: Patient's surgical history taken from previous chart entry. Patient is a poor historian at this time and unable to answer appropriately. - Social History Smoking Status: Unknown if ever smoked How long have you smoked: 3 years Exposure to second hand smoke: No Drug Use: none Patient Lives Alone: No ([facility]) Significant Family History: no pertinent family hx <SHARMAINE SIMMONS - Last Filed: 03/04/22 16:18> - Physical Exam General Appearance: no apparent distress Eye Exam: PERRL/EOMI, eyes nml inspection Ears, Nose, Throat Exam: normal ENT inspection, hearing decreased Neck Exam: normal inspection, non-tender, supple, full range of motion Respiratory Exam: normal breath sounds, lungs clear, No respiratory distress, No accessory muscle use, No rhonchi, No wheezing Cardiovascular/Chest Exam: normal heart sounds, No edema Abdominal/Gastrointestinal Exam: soft, normal bowel sounds, pulsatile mass, No tenderness, No distention Rectal Exam: deferred Extremity Exam: non-tender (left below knee amputation in 1979), No pedal edema, No joint swelling Peripheral Pulses Exam: carotid (R): 4+, carotid (L): 4+, femoral (R): 4+, femoral (L): 4+, dorsalis-pedis (R): 4+ Neurologic Exam: alert, oriented x 3, cooperative Skin Exam: normal color Lymphatic Exam: No adenopathy SpO2 Interpretation: normal SpO2: 98 O2 Delivery: Room Air <SHARMAINE SIMMONS - Last Filed: 03/04/22 16:18> - Nursing Vital Signs Nursing Vital Signs: Initial Vital Signs Temperature 96.9 F 03/03/22 16:20 Pulse Rate 83 03/03/22 16:20 Respiratory Rate 17 03/03/22 16:20 Blood Pressure 125/75 03/03/22 16:20 O2 Sat by Pulse Oximetry 98 03/03/22 16:20 Pain Scale Pain Intensity 0 - Course Nursing assessment & vital signs reviewed: Yes EKG Interpreted by Me: RATE (83), Sinus Rhythm, Right Bundle Branch Block, Non- specific ST Changes, Other (With inferior [place]) - Radiology Exams Chest X-ray Interpretation: Negative - CT Exams Chest CT Interpretation: Tele-radiologist Report <DARIN ISLAS - Last Filed: 03/03/22 21:21> Ordered Tests: Active Orders 24 hr Category Date Time Status IV Insertion STAT Care 03/03/22 16:47 Completed Low Sodium (1.5-2gram Sodium) Diet 03/04/22 Breakfast Active CHEST 1 VIEW (PORTABLE) Stat Exams 03/03/22 17:30 Completed CHEST WITH CONTRAST [CT] Stat Exams 03/03/22 19:07 Completed CBC AM.LAB Lab 03/04/22 04:49 Completed CBC W DIFF Stat Lab 03/03/22 17:29 Completed CMP AM.LAB Lab 03/04/22 04:49 Completed CMP Stat Lab 03/03/22 17:29 Completed D-DIMER QUANTITATIVE Stat Lab 03/03/22 17:29 Completed NT PRO BNP Stat Lab 03/03/22 17:29 Completed TROPONIN Q4H Lab 03/03/22 17:30 Completed TROPONIN Q4H Lab 03/03/22 22:30 Completed TROPONIN Q4H Lab 03/04/22 04:49 Completed UA W/RFX CULTURE Stat Lab 03/03/22 20:28 Completed Medication Summary Generic Name Dose Route Start Last Admin Trade Name Kevinq PRN Reason Stop Dose Admin Acetaminophen 650 mg 03/04/22 09:11 Acetaminophen 325 Mg Tablet PO 04/03/22 09:10 Q4HPRN PRN pain/temp Albuterol Sulfate 2.5 mg 03/04/22 02:50 Albuterol Sulfate 2.5 Mg/3 Ml Neb IH 04/03/22 02:49 Q4H PRN PRN SHORTNESS OF BREATH/WHEEZING Allopurinol 200 mg 03/04/22 10:00 03/04/22 09:53 Allopurinol 100 Mg Tablet PO 04/03/22 09:59 200 mg DAILY MIN Administration Artificial Tears 0 ml 03/04/22 09:36 Polyvinyl Alcohol 15 Ml Bottle OP 04/03/22 09:35 Q6HPRN PRN dry eyes Artificial Tears 0 gm 03/04/22 22:00 Lanolin/Min Oil/Petrolat Wht 3.5 Gm Tube OP 04/03/22 21:59 HS MIN Aspirin 81 mg 03/04/22 10:00 03/04/22 09:49 Aspirin 81 Mg Tablet.Ec PO 04/03/22 09:59 81 mg DAILY MIN Administration Bumetanide 2 mg 03/04/22 10:00 03/04/22 09:50 Bumetanide 1 Mg Tablet PO 04/03/22 09:59 2 mg DAILY MIN Administration Cholecalciferol 1,000 unit 03/04/22 10:00 03/04/22 09:52 Cholecalciferol (Vitamin D3) 1000 Unit Tablet PO 04/03/22 09:59 1,000 unit DAILY MIN Administration Clopidogrel Bisulfate 75 mg 03/04/22 10:00 03/04/22 09:52 Clopidogrel Bisulfate 75 Mg Tablet PO 04/03/22 09:59 75 mg DAILY MIN Administration Methylprednisolone Sodium 0 mg 03/04/22 00:00 03/04/22 12:29 Succinate 60 mg/ Sterile Water IV 04/03/22 00:00 60 mg 2 ml Q6HT MIN Administration Cyanocobalamin 1,000 mcg 03/04/22 10:00 03/04/22 09:53 Cyanocobalamin 500 Mcg Tablet PO 04/03/22 09:59 1,000 mcg DAILY MIN Administration Fenofibrate 72.5 mg 03/04/22 22:00 Fenofibrate,Micronized 145 Mg Tablet PO 04/03/22 21:59 HS MIN Fish Oil 1,000 mg 03/04/22 10:00 03/04/22 14:24 Mallie-3 Fatty Acids/Fish Oil 1000 Mg Capsule PO 04/03/22 09:59 1,000 mg TID MIN Administration Fluticasone Propionate 0 gm 03/04/22 10:00 03/04/22 09:51 Fluticasone Propionate 16 Gm Bottle Nasal [place] NS 04/03/22 09:59 16 gm DAILY MIN Administration Folic Acid 1 mg 03/04/22 10:00 03/04/22 09:53 Folic Acid 1 Mg Tablet PO 04/03/22 09:59 1 mg DAILY MIN Administration Glipizide 5 mg 03/04/22 10:00 03/04/22 10:53 Glipizide 5 Mg Tablet PO 04/03/22 09:59 5 mg 0730 MIN Administration Sodium Chloride 1,000 mls @ 150 mls/hr 03/03/22 21:30 03/04/22 13:46 Sodium Chloride 0.45% 1000 Ml IV 04/02/22 21:29 150 mls/hr .Q6H40M MIN Administration Ceftriaxone Sodium/Dextrose 1 g in 50 mls @ 100 mls/hr 03/04/22 22:00 Rocephin 1 Gm-D5w 50 Ml Bag IV 03/07/22 21:59 Q24H22 MIN Azithromycin 500 mg in 250 mls @ 250 mls/hr 03/04/22 10:00 03/04/22 10:02 Zithromax 500 Mg/ 250 Ml Nacl Premix IV 04/03/22 09:59 250 mls/hr Q24H10 MIN Administration Isosorbide Mononitrate 60 mg 03/04/22 10:00 03/04/22 09:52 Isosorbide Mononitrate 60 Mg Tab PO 04/03/22 09:59 60 mg DAILY MIN Administration Lactulose 20 gm 03/04/22 09:11 Lactulose 20 Gm/30 Ml Udcup PO 04/03/22 09:10 Q12H PRN PRN bowel care Levothyroxine Sodium 75 mcg 03/04/22 10:00 03/04/22 09:53 Levothyroxine Sodium 75 Mcg Tablet PO 04/03/22 09:59 75 mcg DAILY MIN Administration Loratadine 10 mg 03/04/22 10:00 03/04/22 09:52 Loratadine 10 Mg Tablet PO 04/03/22 09:59 10 mg QOD MIN Administration Metolazone 2.5 mg 03/04/22 10:00 03/04/22 10:53 Metolazone 2.5 Mg Tablet PO 04/03/22 09:59 2.5 mg TuSa MIN Administration Metoprolol Tartrate 25 mg 03/04/22 10:00 03/04/22 09:53 Metoprolol Tartrate 25 Mg Tab PO 04/03/22 09:59 25 mg BID MIN Administration Miscellaneous Information 1 each 03/04/22 09:45 Medication Intervention 1 Each Each 04/03/22 09:44 .RN TO CHECK MIN Miscellaneous Information 1 each 03/04/22 09:45 Medication Intervention 1 Each Each 04/03/22 09:44 .RN TO CHECK MIN Nitroglycerin 0.4 mg 03/04/22 09:11 Nitroglycerin 0.4 Mg Tablet Bottle SL 04/03/22 09:10 UD PRN CHEST PAIN Oxybutynin Chloride 5 mg 03/04/22 10:00 03/04/22 14:24 Oxybutynin Chloride 5 Mg Tablet PO 04/03/22 09:59 5 mg TID MIN Administration Pantoprazole Sodium 40 mg 03/04/22 22:00 Protonix (Pantoprazole) 40 Mg Tablet PO 04/03/22 21:59 HS [facility] Potassium Chloride 20 meq 03/04/22 10:00 03/04/22 09:51 Potassium Chloride Tab 10 Meq Tab PO 04/03/22 09:59 20 meq BID MIN Administration Primidone 100 mg 03/04/22 10:00 03/04/22 14:24 Primidone 50 Mg Tablet PO 04/03/22 09:59 100 mg TID MIN Administration Psyllium Hydrophilic Mucilloid 1 pkt 03/04/22 22:00 Psyllium 1 Pkt Packet PO 04/03/22 21:59 HS [facility] Fluticasone/Salmeterol 2 puff 03/04/22 07:00 03/04/22 07:17 Fluticasone/Salmeterol 230/21 Common Canister IH 04/03/22 06:59 Not Given BIDRT [facility] Sertraline HCl 150 mg 03/04/22 22:00 Sertraline Hcl 50 Mg Tab PO 04/03/22 21:59 HS [facility] Tamsulosin HCl 0.4 mg 03/04/22 22:00 Tamsulosin Hcl 0.4 Mg Cap PO 04/03/22 21:59 HS [facility] Tramadol HCl 50 mg 03/04/22 10:00 03/04/22 09:52 Tramadol Hcl 50 Mg Tablet PO 04/03/22 09:59 50 mg BID MIN Administration Tramadol HCl 50 mg 03/04/22 09:11 Tramadol Hcl 50 Mg Tablet PO 04/03/22 09:10 Q8H PRN PAIN Discontinued Medications Generic Name Dose Route Start Last Admin Trade Name Freq PRN Reason Stop Dose Admin Albuterol Sulfate 2.5 mg 03/03/22 23:00 03/04/22 02:05 Albuterol Sulfate 2.5 Mg/3 Ml Neb IH 04/02/22 22:59 2.5 mg Q4HRT MIN Administration Albuterol Sulfate Confirm 03/03/22 21:32 Albuterol Sulfate 2.5 Mg/3 Ml Neb Administered 03/03/22 21:33 Dose 2.5 mg IH .STK-MED ONE Albuterol Sulfate Confirm 08/23/22 01:59 Albuterol Sulfate 2.5 Mg/3 Ml Neb Administered 03/04/22 02:00 Dose 2.5 mg IH .STK-MED ONE Ceftriaxone Sodium/Dextrose 1 g in 50 mls @ 100 mls/hr 03/04/22 10:00 03/03/22 22:57 Rocephin 1 Gm-D5w 50 Ml Bag IV 03/07/22 09:59 100 mls/hr Q24H10 MIN Administration Methylprednisolone Sodium Succinate Confirm 03/03/22 23:58 Methylprednis Sod Succ 125 Mg/2 Ml Vial Administered 03/03/22 23:59 Dose 125 mg .ROUTE .STK-MED ONE Methylprednisolone Sodium Succinate Confirm 03/04/22 04:48 Methylprednis Sod Succ 125 Mg/2 Ml Vial Administered 03/04/22 04:49 Dose 125 mg .ROUTE .STK-MED ONE Lab/Rad Data: Laboratory Result Diagrams 03/03/22 17:29 03/03/22 17:29 Laboratory Results 03/03/22 03/03/22 03/03/22 Range/Units 20:28 17:30 17:29 WBC (4.0-10.5) x10^3/uL RBC (4.1-5.6) x10^6/uL Hgb (12.5-18.0) g/dL Hct (42-50) % MCV (78-100) fL MCH (26-32) pg MCHC (32-36) g/dL RDW (11.5-14.0) % Plt Count (150-450) x10^3/uL MPV (7.5-11.0) fL Gran % (36.0-66.0) % Immature Gran % (Auto) (0.00-0.4) % Nucleat RBC Rel Count (0.00-0.1) % Eos # (Auto) (0-0.5) x10^3/uL Immature Gran # (Auto) (0.00-0.03) x10^3u/L Absolute Lymphs (auto) (1.0-4.6) x10^3/uL Absolute Monos (auto) (0.0-1.3) x10^3/uL Absolute Nucleated RBC (0.00-0.01) x10^3u/L Lymphocytes % (24.0-44.0) % Monocytes % (0.0-12.0) % Eosinophils % (0.00-5.0) % Basophils % (0.0-0.4) % Absolute Granulocytes (1.4-6.9) x10^3/uL Basophils # (0-0.4) x10^3/uL D-Dimer 1.34 H* (0.0-0.50) mg/L Sodium (137-145) mmol/L Potassium (3.5-5.1) mmol/L Chloride (98-107) mmol/L Carbon Dioxide (22-30) mmol/L Anion Gap (5-15) MEQ/L BUN (9-20) mg/dL Creatinine (0.66-1.25) mg/dL Estimated GFR ML/MIN Glucose (74-106) mg/dL Calcium (8.4-10.2) mg/dL Total Bilirubin (0.2-1.3) mg/dL AST (17-59) U/L ALT (0-50) U/L Alkaline Phosphatase (38-126) U/L Troponin I < 0.012 (0.000-0.034) ng/mL NT-Pro-B Natriuret Pep (0-1800) pg/mL Serum Total Protein (6.3-8.2) g/dL Albumin (3.5-5.0) g/dL Urinalys Dipstick Clnc MAIN LAB Urine Color YELLOW (YELLOW) Urine Appearance CLEAR (CLEAR) Urine pH 5.5 (5-6) Ur Specific [place] 1.010 (1.005-1.025) POC Urine Protein Conf NEGATIVE (Negative) Urine Ketones NEGATIVE (NEGATIVE) Urine Nitrite NEGATIVE (NEGATIVE) Urine Bilirubin NEGATIVE (NEGATIVE) Urine Urobilinogen 0.2 (0-1) mg/dL Urine Leukocytes NEGATIVE (NEGATIVE) Urine WBC (Auto) NONE (0-5) /HPF Urine RBC (Auto) NONE (0-2) /HPF U Hyaline Cast (Auto) 3-5 (0-2) /LPF U Epithel Cells (Auto) NONE (FEW) /HPF Urine Bacteria (Auto) RARE (NEGATIVE) /HPF Urine RBC NEGATIVE (0-5) Oc/ul Urine Mucus (Auto) SLIGHT (NEGATIVE) /HPF Ur Culture Indicated? NO Urine Glucose NEGATIVE (NEGATIVE) mg/dL 03/03/22 03/03/22 Range/Units 17:29 17:29 WBC 7.6 (4.0-10.5) x10^3/uL RBC 3.59 L (4.1-5.6) x10^6/uL Hgb 10.9 L (12.5-18.0) g/dL Hct 34.6 L (42-50) % MCV 96.4 (78-100) fL MCH 30.4 (26-32) pg MCHC 31.5 L (32-36) g/dL RDW 18.6 H (11.5-14.0) % Plt Count 341 (150-450) x10^3/uL MPV 11.6 H (7.5-11.0) fL Gran % 65.9 (36.0-66.0) % Immature Gran % (Auto) 0.9 H (0.00-0.4) % Nucleat RBC Rel Count 0.0 (0.00-0.1) % Eos # (Auto) 0.40 (0-0.5) x10^3/uL Immature Gran # (Auto) 0.07 H (0.00-0.03) x10^3u/L Absolute Lymphs (auto) 1.58 (1.0-4.6) x10^3/uL Absolute Monos (auto) 0.47 (0.0-1.3) x10^3/uL Absolute Nucleated RBC 0.00 (0.00-0.01) x10^3u/L Lymphocytes % 20.8 L (24.0-44.0) % Monocytes % 6.2 (0.0-12.0) % Eosinophils % 5.3 H (0.00-5.0) % Basophils % 0.9 (0.0-0.4) % Absolute Granulocytes 4.99 (1.4-6.9) x10^3/uL Basophils # 0.07 (0-0.4) x10^3/uL D-Dimer (0.0-0.50) mg/L Sodium 135 L (137-145) mmol/L Potassium 5.5 H D (3.5-5.1) mmol/L Chloride 99 (98-107) mmol/L Carbon Dioxide 26 (22-30) mmol/L Anion Gap 15.1 H (5-15) MEQ/L BUN 74 H (9-20) mg/dL Creatinine 1.15 (0.66-1.25) mg/dL Estimated GFR > 60.0 ML/MIN Glucose 110 H (74-106) mg/dL Calcium 11.0 H (8.4-10.2) mg/dL Total Bilirubin 0.80 (0.2-1.3) mg/dL AST 30 (17-59) U/L ALT 14 (0-50) U/L Alkaline Phosphatase 139 H (38-126) U/L Troponin I (0.000-0.034) ng/mL NT-Pro-B Natriuret Pep 596 (0-1800) pg/mL Serum Total Protein 8.0 (6.3-8.2) g/dL Albumin 3.8 (3.5-5.0) g/dL Urinalys Dipstick Clnc Urine Color (YELLOW) Urine Appearance (CLEAR) Urine pH (5-6) Ur Specific [place] (1.005-1.025) POC Urine Protein Conf (Negative) Urine Ketones (NEGATIVE) Urine Nitrite (NEGATIVE) Urine Bilirubin (NEGATIVE) Urine Urobilinogen (0-1) mg/dL Urine Leukocytes (NEGATIVE) Urine WBC (Auto) (0-5) /HPF Urine RBC (Auto) (0-2) /HPF U Hyaline Cast (Auto) (0-2) /LPF U Epithel Cells (Auto) (FEW) /HPF Urine Bacteria (Auto) (NEGATIVE) /HPF Urine RBC (0-5) Oc/ul Urine Mucus (Auto) (NEGATIVE) /HPF Ur Culture Indicated? Urine Glucose (NEGATIVE) mg/dL - Progress Progress: unchanged Air Movement: good <DARIN ISLAS - Last Filed: 03/03/22 21:21> - Progress Blood Culture(s) Obtained: No <SHARMAINE SIMMONS - Last Filed: 03/04/22 16:18> - Progress Progress Note: 03/03/22 19:25 This is a 77-year-old gentleman presenting to the ED for evaluation of shortness of breath Labs and COVID swab has been ordered Given h/o COPD and CHF will hold off on IVF at this time. Will attempt to get copy of ECHO to see if he has systolic/diastolic CHF which will help manage IVF administration if needed. Care has been transferred to Dr. Islas at shift change. Please See his note for further details. 03/04/22 16:16 (SHARMAINE SIMMONS) - Departure Departure Disposition: Home Critical Care Time: No <DARIN ISLAS - Last Filed: 03/03/22 21:21> <SHARMAINE SIMMONS - Last Filed: 03/04/22 16:18> - Departure Clinical Impression: Dehydration, COPD exacerbation Condition: Fair
[2022-03-03 21:01] LABS: Bacteria RARE /HPF (NEGATIVE); Mucus SLIGHT /HPF (NEGATIVE)
[2022-03-03 21:03] LABS: Appearance CLEAR (CLEAR); Bilirubin NEGATIVE (NEGATIVE); Glucose NEGATIVE (NEGATIVE); Ketones NEGATIVE (NEGATIVE); Nitrite NEGATIVE (NEGATIVE); Ph 5.5 (5-6); Protein,Urine Dip NEGATIVE (Negative); RBC NEGATIVE Ery/ul (0-5); Urine Cultured Indicated? NO; Urobilinogen 0.2 mg/dL (0-1)
[2022-03-03 21:09] LABS: Dipstick done @ ? MAIN LAB
[2022-03-03] MEDS ORDERED: PROVENTIL 2.5 MG/3 ML NEB IH ONE (21:32)
[2022-03-03] MEDS: PROVENTIL 2.5 MG/3 ML NEB IH SCH (21:44)
[2022-03-03] MEDS: ROCEPHIN 1 Gm-D5w 50 ml Bag** 1 G/50 ML IVPB IV SCH ×2 (22:56→22:57)
[2022-03-03] MEDS ORDERED: solu-MEDROL ONE (23:58)
[2022-03-04] MEDS: solu-MEDROL 60 MG, Sterile H2O 10 ml 2 ML IV SCH ×8 (00:23→18:30)
[2022-03-04] MEDS ORDERED: PROVENTIL 2.5 MG/3 ML NEB IH ONE (01:59)
[2022-03-04] MEDS: PROVENTIL 2.5 MG/3 ML NEB IH SCH (02:05)
[2022-03-04] MEDS ORDERED: PROVENTIL 2.5 MG/3 ML NEB IH PRN (02:50)
[2022-03-04] MEDS ORDERED: solu-MEDROL ONE (04:48)
[2022-03-04 04:54] LABS: Hematocrit 35.7 % (42-50); Mean Cell Volume 97.8 fL (78-100); Mean Corpuscular Hemoglobin 30.1 pg (26-32); Mean Corpuscular Hgb Concent. 30.8 g/dL (32-36); Mean Platelet Volume 11.4 fL (7.5-11.0); Platelet Count 295 x10^3/uL (150-450); Red Blood Count 3.65 x10^6/uL (4.1-5.6); Red Cell Distribution Width 18.8 % (11.5-14.0); White Blood Count 10.7 x10^3/uL (4.0-10.5)
[2022-03-04 05:16] LABS: ALBUMIN 3.9 g/dL (3.5-5.0); ANION GAP 18.6 MEQ/L (5-15); BILIRUBIN,TOTAL 0.8 mg/dL (0.2-1.3); Calcium 11.2 mg/dL (8.4-10.2); Creatinine 1 1.26 mg/dL (0.66-1.25); EST GLOMERULAR FILTRATION RATE 59.1 ML/MIN; Potassium 5.1 mmol/L (3.5-5.1); Total Protein 8.4 g/dL (6.3-8.2)
[2022-03-04] MEDS: Advair Hfa 230/21 Mcg COMMON CANISTER IH SCH ×3 (07:16→18:33)
--- NOTE | 2022-03-04 08:46 | XRAY ---
Exam: AP upright portable chest film from 03/03/2022. Comparison: AP upright portable chest oh from 02/19/2022. Indication: 77-year-old male with shortness of breath. Findings: The patient is moderately rotated toward the right. The transverse heart size appears within normal limits. There is minimal elevation of the left hemidiaphragm with minimal plate atelectasis at the left lung base. Left perihilar airspace disease on 02/19/2022 appears to have resolved. The lungs are mildly hypo-ventilated. Some coronary artery stents are seen on the right. I also see some surgical clips on the right and midline sternal wires suggestive of prior CABG. The third metallic wire from the top again appears to be broken. Minimal plate atelectasis at the lateral right lung base is seen. The remainder of the lung sanderson appears clear. No pneumothorax or pleural fluid is seen. Mild degenerative changes are seen throughout the thoracic spine and within both shoulder girdles. EKG leads are noted in place. Impression: 1. Prior left perihilar airspace disease has resolved as compared 02/19/2022. 2. Minimal elevation left hemidiaphragm with minimal plate atelectasis at the left lung base. 3. The patient is status post CABG and has some coronary artery stents to the right of midline. This is unchanged. 4. Minimal plate atelectasis is seen at the lateral right lung base. The remainder of the lung sanderson appears clear.
[2022-03-04] MEDS ORDERED: ULTRAM 50 MG PO PRN (09:11)
[2022-03-04] MEDS ORDERED: TYLENOL 325 MG PO PRN (09:11)
[2022-03-04] MEDS ORDERED: LACTULOSE 20 GM/30ML UD CUP PO PRN (09:11)
[2022-03-04] MEDS ORDERED: PROPYLENE GLYCOL DROPS PRN (09:11)
[2022-03-04] MEDS ORDERED: [UNRECOGNIZED DRUG - OTHER] DROPS PRN (09:11)
[2022-03-04] MEDS ORDERED: Nitrostat 0.4 MG Tablet SL PRN (09:11)
[2022-03-04] MEDS ORDERED: PEG DROPS PRN (09:11)
[2022-03-04] MEDS ORDERED: REPAGLINIDE 2 MG PO SCH (09:15)
[2022-03-04] MEDS ORDERED: Artificial Tears 15 ML OP PRN (09:36)
[2022-03-04] MEDS ORDERED: MEDICATION INTERVENTION MC SCH ×2 (09:45)
--- NOTE | 2022-03-04 09:48 | XRAY ---
Exam: CT of the chest with IV contrast, per PE protocol, from 03/03/2022. CTDI: 29.50 mGy Comparison: CT of the chest without IV contrast from 02/17/2022. Indication: 77-year-old male with elevated d-dimer of 1.34; shortness of breath. Technique: Post-IV contrast axial images were obtained through the chest during automated injection of 100 ML's of Isovue 370 contrast, per PE protocol. Reconstructed coronal and sagittal images were created and reviewed. Findings: The pulmonary arteries opacify well revealing no filling defects to suggest clot/emboli. I see no evidence of thoracic aortic aneurysm or dissection. Atherosclerotic vascular calcification is noted within the right brachiocephalic artery, aortic arch, and descending thoracic aorta. The heart size appears within normal limits without pericardial effusion. There is evidence of prior CABG with midline sternotomy. Mitral valve annulus calcification is seen to the left of midline. Moderate mediastinal fat is seen anteriorly. No pathological mediastinal lymphadenopathy is seen. The thoracic trachea and major central branching bronchi appear open. There appears to be a 1.8 cm in AP dimension by 1.1 cm in width rim-enhancing cystic lesion at the posterior margin of the lower pole of the right lobe of the thyroid gland. See axial images #197 through #200. In retrospect, this was present on the prior CT study from 02/17/2022 as well. There is minimal elevation of the left hemidiaphragm with respect to the right hemidiaphragm. This is less pronounced as compared to 02/17/2022. Previous scattered bilateral consolidative infiltrates have almost resolved, particularly the larger infiltrate within the anterior aspect of the left midlung field. Scattered bilateral linear atelectasis is seen, most pronounced at the lung bases. No pneumothorax or pleural effusion is seen. There is a suggestion of mild fatty infiltration within the liver. The adrenal glands appear normal size and configuration. The spleen is not enlarged. The visualized portions of the pancreas appear normal. The skeleton reveals no acute fracture or aggressive bone lesion. Mild to moderate degenerative disc disease is seen at C6-C7 and C7-T1. I also note mild thoracic spondylosis within the mid and lower thoracic spine. Mild multilevel vacuum disc phenomena is seen at several lower thoracic interspaces. 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 There is perhaps slight elevation of the right humeral head as well. Impression: 1. No evidence of pulmonary embolism is seen. No thoracic aortic aneurysm or dissection is seen. 2. Previously noted scattered bilateral airspace infiltrates, left greater than right, have almost completely resolved representing improvement. Mild curvilinear scarring/atelectasis remains, mostly at the lung bases. Prior mild elevation of the left hemidiaphragm is less pronounced. 3. The remainder the findings appears unchanged, as discussed above.
[2022-03-04] MEDS: ECOTRIN 81 MG PO SCH (09:49)
[2022-03-04] MEDS: BUMEX 1 MG PO SCH (09:50)
[2022-03-04] MEDS: Ditropan 5 MG PO SCH ×3 (09:51→22:42)
[2022-03-04] MEDS: FISH OIL 1,000 MG CAPSULE PO SCH ×3 (09:51→22:46)
[2022-03-04] MEDS: Flonase NASAL NS SCH (09:51)
[2022-03-04] MEDS: Klor Con PO SCH ×2 (09:51→22:41)
[2022-03-04] MEDS: CLARITIN 10 MG PO SCH (09:52)
[2022-03-04] MEDS: Imdur 60MG PO SCH (09:52)
[2022-03-04] MEDS: VITAMIN D PO SCH (09:52)
[2022-03-04] MEDS: MYSOLINE 50MG PO SCH ×3 (09:52→22:42)
[2022-03-04] MEDS: ULTRAM 50 MG PO SCH ×2 (09:52→22:42)
[2022-03-04] MEDS: PLAVIX Tablet PO SCH (09:52)
[2022-03-04] MEDS: SYNTHROID 75 MCG PO SCH (09:53)
[2022-03-04] MEDS: Lopressor 25MG Tab PO SCH ×3 (09:53→23:25)
[2022-03-04] MEDS: Vitamin B-12 500 MCG PO SCH (09:53)
[2022-03-04] MEDS: ZYLOPRIM 100 MG PO SCH (09:53)
[2022-03-04] MEDS: FOLATE 1 MG PO SCH (09:53)
[2022-03-04] MEDS ORDERED: Zaroxolyn 2.5 MG PO SCH (10:00)
[2022-03-04] MEDS ORDERED: ALPHA D GALACTOSIDASE 400 UNIT PO SCH (10:00)
[2022-03-04] MEDS ORDERED: NON-FORMULARY ITEM (Fluticasone Propionate [Flovent Diskus] 50 MCG Blst.W.Dev) IH SCH (10:00)
[2022-03-04] MEDS: Zithromax 500 MG/ 250 ML NaCl Premix 500 MG/250 ML IVPB IV SCH (10:02)
[2022-03-04] MEDS: Glucotrol 5 MG PO SCH (10:53)
--- NOTE | 2022-03-04 12:32 | XRAY ---
Exam: MRI of the brain without IV contrast from 03/04/2023. Comparison: CT of the head without IV contrast 12/20/2021. Indication: 77-year-old male with weakness and confusion; history of old stroke. Technique: Multiplanar, multisequence MRI imaging of the brain was obtained without IV contrast, per protocol. Findings: The study is motion limited. Both the ventricles and cortical sulci/sylvian fissures are prominent consistent with some generalized atrophy. There is mild increased periventricular signal on the T2 FLAIR images, likely due to some small vessel ischemic disease. I see no focal mass effect or midline shift. No acute intracranial bleed is seen. No abnormal extra-axial fluid collection is seen. The T2 FLAIR images reveal some increased signal within the posterior right parietal lobe consistent with an old infarct. In addition, there are a couple other smaller foci of increased signal intensity within the upper right parietal convexity more anteriorly on images #6 and #7 of series 300 which likely reflect small prior infarcts. The diffusion weighted images reveal no focal areas of restricted diffusion to suggest an acute or subacute infarct. The seventh and eighth cranial nerve complexes appear unremarkable. The mastoids reveal no effusion or significant mucosal thickening. The paranasal sinuses reveal no significant abnormality. Flow voids within the [place] appear grossly unremarkable without aneurysm. Impression: 1. This study is motion limited. 2. I note some increased T2 FLAIR signal within the posterior right parietal lobe and a couple smaller foci of increased T2 FLAIR signal in the high right parietal convexity more anteriorly which appear to be due to old infarcts. The diffusion weighted images reveal no focal areas of restricted diffusion to suggest an acute or subacute infarct. 3. Global atrophy. There is also evidence of some mild bilateral periventricular white matter changes consistent with small vessel ischemic disease. 4. No other acute process is seen within the brain.
[2022-03-04] MEDS ORDERED: MINERAL OIL TP SCH (22:00)
[2022-03-04] MEDS ORDERED: HYDROPHILIC PETROLATUM TP SCH (22:00)
[2022-03-04] MEDS ORDERED: NON-FORMULARY ITEM (Fenofibrate Nanocrystallized [Fenofibrate] 48 MG Tablet) PO SCH (22:00)
[2022-03-04] MEDS ORDERED: [UNRECOGNIZED DRUG - OTHER] TP SCH (22:00)
[2022-03-04] MEDS ORDERED: NON-FORMULARY ITEM (Psyllium Packet*** [Metamucil Packet***] 1 PKT Packet) PO SCH (22:00)
[2022-03-04] MEDS ORDERED: NON-FORMULARY ITEM (Omeprazole [Omeprazole] 20 MG Capsule.Dr) PO SCH (22:00)
[2022-03-04] MEDS: Flomax 0.4 MG PO SCH (22:41)
[2022-03-04] MEDS: ZOLOFT 50 MG TABLET PO SCH (22:41)
[2022-03-04] MEDS: Lubrifresh P.M. 3.5 gm Ointment OP SCH (22:41)
[2022-03-04] MEDS: Protonix 40MG Tablet PO SCH (22:42)
[2022-03-04] MEDS: Tricor 145 MG PO SCH (22:43)
[2022-03-04] MEDS: Metamucil PACKET PO SCH (22:46)
[2022-03-04] MEDS: ROCEPHIN 1 Gm-D5w 50 ml Bag** 1 G/50 ML IVPB IV SCH (22:46)
[2022-03-05] MEDS: solu-MEDROL 60 MG, Sterile H2O 10 ml 2 ML IV SCH ×8 (01:27→17:33)
[2022-03-05] MEDS ORDERED: solu-MEDROL ONE ×2 (01:27→06:38)
[2022-03-05] MEDS: Advair Hfa 230/21 Mcg COMMON CANISTER IH SCH ×2 (07:02→20:00)
[2022-03-05] MEDS: Glucotrol 5 MG PO SCH (07:28)
[2022-03-05] MEDS: PLAVIX Tablet PO SCH (09:03)
[2022-03-05] MEDS: ECOTRIN 81 MG PO SCH (09:03)
[2022-03-05] MEDS: FISH OIL 1,000 MG CAPSULE PO SCH ×3 (09:03→21:45)
[2022-03-05] MEDS: ULTRAM 50 MG PO SCH ×2 (09:04→21:46)
[2022-03-05] MEDS: BUMEX 1 MG PO SCH (09:04)
[2022-03-05] MEDS: Vitamin B-12 500 MCG PO SCH (09:05)
[2022-03-05] MEDS: VITAMIN D PO SCH (09:05)
[2022-03-05] MEDS: Imdur 60MG PO SCH (09:05)
[2022-03-05] MEDS: MYSOLINE 50MG PO SCH ×3 (09:06→21:45)
[2022-03-05] MEDS: SYNTHROID 75 MCG PO SCH (09:07)
[2022-03-05] MEDS: Ditropan 5 MG PO SCH ×3 (09:07→21:45)
[2022-03-05] MEDS: Lopressor 25MG Tab PO SCH ×2 (09:07→21:45)
[2022-03-05] MEDS: FOLATE 1 MG PO SCH (09:07)
[2022-03-05] MEDS: Klor Con PO SCH ×2 (09:08→21:48)
[2022-03-05] MEDS: ZYLOPRIM 100 MG PO SCH (09:08)
[2022-03-05] MEDS: Flonase NASAL NS SCH (09:08)
[2022-03-05] MEDS: Zithromax 500 MG/ 250 ML NaCl Premix 500 MG/250 ML IVPB IV SCH (09:17)
[2022-03-05] MEDS: Flomax 0.4 MG PO SCH (21:45)
[2022-03-05] MEDS: Tricor 145 MG PO SCH (21:45)
[2022-03-05] MEDS: Protonix 40MG Tablet PO SCH (21:45)
[2022-03-05] MEDS: ROCEPHIN 1 Gm-D5w 50 ml Bag** 1 G/50 ML IVPB IV SCH (21:46)
[2022-03-05] MEDS: ZOLOFT 50 MG TABLET PO SCH (21:47)
[2022-03-05] MEDS: Metamucil PACKET PO SCH (21:47)
[2022-03-05] MEDS: Lubrifresh P.M. 3.5 gm Ointment OP SCH (21:47)
[2022-03-05] MEDS: HUMALOG SQ PRN (21:49)
[2022-03-06] MEDS ORDERED: solu-MEDROL ONE ×2 (00:24→06:23)
[2022-03-06] MEDS: solu-MEDROL 60 MG, Sterile H2O 10 ml 2 ML IV SCH ×8 (00:32→17:22)
[2022-03-06 05:27] LABS: Absolute Neutrophil Ct (ANC) 5.39 x10^3/uL (1.4-6.9); Basophil (Absolute #) 0 x10^3/uL (0-0.4); Eosinophil (Absolute #) 0 x10^3/uL (0-0.5); Hematocrit 25.9 % (42-50); Lymphocyte (Absolute #) 0.52 x10^3/uL (1.0-4.6); Lymphocytes % 8.5 % (24.0-44.0); Mean Cell Volume 94.5 fL (78-100); Mean Corpuscular Hemoglobin 30.7 pg (26-32); Mean Corpuscular Hgb Concent. 32.4 g/dL (32-36); Mean Platelet Volume 11.7 fL (7.5-11.0); Monocyte (Absolute #) 0.19 x10^3/uL (0.0-1.3); Monocytes % 3.1 % (0.0-12.0); Neutrophil % 87.7 % (36.0-66.0); Platelet Count 233 x10^3/uL (150-450); Red Blood Count 2.74 x10^6/uL (4.1-5.6); Red Cell Distribution Width 17.7 % (11.5-14.0); White Blood Count 6.1 x10^3/uL (4.0-10.5)
[2022-03-06 05:44] LABS: Hemoglobin 8.4 g/dL (12.5-18.0)
[2022-03-06 06:01] LABS: ANION GAP 10.9 MEQ/L (5-15); BLOOD UREA NITROGEN 39 mg/dL (9-20); CHLORIDE 96 mmol/L (98-107); Calcium 8.6 mg/dL (8.4-10.2); Carbon Dioxide 24 mmol/L (22-30); Creatinine 1 0.77 mg/dL (0.66-1.25); EST GLOMERULAR FILTRATION RATE > 60.0 ML/MIN; Glucose 184 mg/dL (74-106); Potassium 3.6 mmol/L (3.5-5.1); SODIUM 127 mmol/L (137-145)
[2022-03-06] MEDS: Advair Hfa 230/21 Mcg COMMON CANISTER IH SCH ×2 (07:00→19:31)
[2022-03-06 07:55] LABS: Slide Review 1 YES
[2022-03-06] MEDS: VITAMIN D PO SCH (08:02)
[2022-03-06] MEDS: MYSOLINE 50MG PO SCH ×3 (08:03→21:34)
[2022-03-06] MEDS: BUMEX 1 MG PO SCH (08:03)
[2022-03-06] MEDS: Klor Con PO SCH ×2 (08:03→21:33)
[2022-03-06] MEDS: Vitamin B-12 500 MCG PO SCH (08:03)
[2022-03-06] MEDS: PLAVIX Tablet PO SCH (08:04)
[2022-03-06] MEDS: FOLATE 1 MG PO SCH (08:04)
[2022-03-06] MEDS: Glucotrol 5 MG PO SCH (08:04)
[2022-03-06] MEDS: ZYLOPRIM 100 MG PO SCH (08:04)
[2022-03-06] MEDS: Lopressor 25MG Tab PO SCH ×2 (08:04→21:34)
[2022-03-06] MEDS: SYNTHROID 75 MCG PO SCH (08:04)
[2022-03-06] MEDS: Imdur 60MG PO SCH (08:04)
[2022-03-06] MEDS: CLARITIN 10 MG PO SCH (08:04)
[2022-03-06] MEDS: ECOTRIN 81 MG PO SCH (08:04)
[2022-03-06] MEDS: Ditropan 5 MG PO SCH ×3 (08:05→21:32)
[2022-03-06] MEDS: FISH OIL 1,000 MG CAPSULE PO SCH ×3 (08:05→23:09)
[2022-03-06] MEDS: Flonase NASAL NS SCH (08:05)
[2022-03-06] MEDS: ULTRAM 50 MG PO SCH ×2 (08:05→21:32)
--- NOTE | 2022-03-06 08:42 | XRAY ---
Indication: Short of breath. Comparison: March 03, 2022 Portable apical lordotic chest unchanged again with minimal left basilar atelectasis/scarring. Remaining heart and lungs unremarkable again with incidental CABG. No new/acute findings.
[2022-03-06] MEDS: Zithromax 500 MG/ 250 ML NaCl Premix 500 MG/250 ML IVPB IV SCH (09:43)
[2022-03-06] MEDS: HUMALOG SQ PRN ×3 (12:44→21:31)
[2022-03-06] MEDS: Metamucil PACKET PO SCH (21:32)
[2022-03-06] MEDS: ZOLOFT 50 MG TABLET PO SCH (21:32)
[2022-03-06] MEDS: Protonix 40MG Tablet PO SCH (21:33)
[2022-03-06] MEDS: Flomax 0.4 MG PO SCH (21:33)
[2022-03-06] MEDS: Tricor 145 MG PO SCH (21:34)
[2022-03-06] MEDS: Lubrifresh P.M. 3.5 gm Ointment OP SCH (21:35)
[2022-03-06] MEDS: ROCEPHIN 1 Gm-D5w 50 ml Bag** 1 G/50 ML IVPB IV SCH (23:09)
[2022-03-07] MEDS: solu-MEDROL 60 MG, Sterile H2O 10 ml 2 ML IV SCH ×6 (00:11→11:51)
[2022-03-07 05:28] LABS: Hemoglobin 8.5 g/dL (12.5-18.0); Mean Cell Volume 94.9 fL (78-100); Mean Corpuscular Hgb Concent. 32.7 g/dL (32-36); Mean Platelet Volume 11.6 fL (7.5-11.0); Platelet Count 215 x10^3/uL (150-450); Red Blood Count 2.74 x10^6/uL (4.1-5.6); Red Cell Distribution Width 17.9 % (11.5-14.0); White Blood Count 4.6 x10^3/uL (4.0-10.5)
[2022-03-07 05:57] LABS: ANION GAP 9.7 MEQ/L (5-15); BLOOD UREA NITROGEN 29 mg/dL (9-20); CHLORIDE 98 mmol/L (98-107); Calcium 8.4 mg/dL (8.4-10.2); Carbon Dioxide 25 mmol/L (22-30); Creatinine 1 0.72 mg/dL (0.66-1.25); EST GLOMERULAR FILTRATION RATE > 60.0 ML/MIN; Glucose 210 mg/dL (74-106); Potassium 4.3 mmol/L (3.5-5.1); SODIUM 129 mmol/L (137-145)
[2022-03-07] MEDS ORDERED: solu-MEDROL ONE (06:17)
[2022-03-07] MEDS: Advair Hfa 230/21 Mcg COMMON CANISTER IH SCH (07:25)
[2022-03-07] MEDS: Glucotrol 5 MG PO SCH (08:10)
[2022-03-07 11:27] VITALS: BP 132/63; PULSE 75; O2SAT 97
[2022-03-07] MEDS: VITAMIN D PO SCH (11:35)
[2022-03-07] MEDS: ZYLOPRIM 100 MG PO SCH (11:35)
[2022-03-07] MEDS: FISH OIL 1,000 MG CAPSULE PO SCH (11:36)
[2022-03-07] MEDS: MYSOLINE 50MG PO SCH (11:36)
[2022-03-07] MEDS: BUMEX 1 MG PO SCH (11:36)
[2022-03-07] MEDS: Klor Con PO SCH (11:36)
[2022-03-07] MEDS: ULTRAM 50 MG PO SCH (11:36)
[2022-03-07] MEDS: Vitamin B-12 500 MCG PO SCH (11:36)
[2022-03-07] MEDS: SYNTHROID 75 MCG PO SCH (11:37)
[2022-03-07] MEDS: ECOTRIN 81 MG PO SCH (11:37)
[2022-03-07] MEDS: Ditropan 5 MG PO SCH (11:37)
[2022-03-07] MEDS: Imdur 60MG PO SCH (11:37)
[2022-03-07] MEDS: PLAVIX Tablet PO SCH (11:37)
[2022-03-07] MEDS: Flonase NASAL NS SCH (11:37)
[2022-03-07] MEDS: Lopressor 25MG Tab PO SCH (11:37)
[2022-03-07] MEDS: FOLATE 1 MG PO SCH (11:37)
[2022-03-07] MEDS: Zithromax 500 MG/ 250 ML NaCl Premix 500 MG/250 ML IVPB IV SCH (11:38)
[2022-03-11] MEDS ORDERED: Zaroxolyn 2.5 MG PO SCH (10:00)
--- NOTE | 2022-03-18 05:59 | PCM.HP ---
History of Present Illness - Chief Complaint Chief Complaint: EXAC COPD, SLOWED MENTATION Date: 03/04/22 History of Present Illness: is a 77 year old male. Pt. sent to ER for evaluation of sob and slowed mentation, pt. found to have lower oxygen saturation and increased work of breathing. Pt. admitted for iv steroids and iv antibiotics with supplemental oxygen support. - Review of Systems Constitutional: No Fever, No Chills Eyes: No Symptoms Ears, Nose, & Throat: No Symptoms Respiratory: Short Of Breath, Wheezing, No Cough Cardiac: No Chest Pain, No Edema, No Syncope Abdominal/Gastrointestinal: No Abdominal Pain, No Nausea, No Vomiting, No Diarrhea Genitourinary Symptoms: No Dysuria Musculoskeletal: No Back Pain, No Neck Pain Skin: No Rash Neurological: Other (slowed mentation, with mild confusion), No Dizziness, No Focal Weakness, No Sensory Changes Psychological: No Symptoms Endocrine: No Symptoms Hematologic/Lymphatic: No Symptoms Immunological/Allergic: No Symptoms Medications & Allergies Home Medications: Home Medication List Acetaminophen 325 mg [Tylenol 325 mg] 650 mg PO Q4HPRN PRN 02/18/22 [History Confirmed 03/03/22] Allopurinol 100 mg [Zyloprim 100 mg] 200 mg PO DAILY 02/18/22 [History Confirmed 03/03/22] [id number]-[id number] [Beano] 800 unit PO BID 02/18/22 [History Confirmed 03/03/22] Aspirin EC 81 mg [Ecotrin 81 mg] 81 mg PO DAILY 02/18/22 [History Confirmed 03/03/22] Budesonide/Formoterol Fumarate [Budesonide-Formoterol 160-4.5] 2 puff IH BID 02/18/22 [History Confirmed 03/03/22] Bumetanide 1 mg [Bumex 1 mg] 2 mg PO DAILY 02/18/22 [History Confirmed 03/03/22] Cholecalciferol (Vitamin D3) [Vitamin D] 1 tab PO DAILY 02/18/22 [History Confirmed 03/03/22] Clopidogrel Bisulfate [Clopidogrel] 75 mg PO DAILY 02/18/22 [History Confirmed 03/03/22] Cyanocobalamin 500 Mcg [Vitamin B-12 500 MCG] 1,000 mcg PO DAILY 02/18/22 [History Confirmed 03/03/22] Fenofibrate Nanocrystallized [Fenofibrate] 48 mg PO HS 02/18/22 [History Confirmed 03/03/22] Fluticasone Propionate [Flovent Diskus] 1 spray IH DAILY 02/18/22 [History Confirmed 03/03/22] Folic Acid 1 mg [Folate 1 mg] 1 mg PO DAILY 02/18/22 [History Confirmed 03/03/22] Glipizide 5 mg [Glucotrol 5 MG] 5 mg PO DAILY 02/18/22 [History Confirmed 03/03/22] Isosorbide Mononitrate [Isosorbide Mononitrate ER] 60 mg PO DAILY 02/18/22 [History Confirmed 03/03/22] Lactulose [Lactulose 20 gm/30Ml Ud Cup] 30 ml PO Q12H PRN PRN 02/18/22 [History Confirmed 03/03/22] Levothyroxine Sodium 75 Mcg [Synthroid 75 Mcg] 75 mcg PO DAILY 02/18/22 [History Confirmed 03/03/22] Loratadine 10 mg [Claritin 10 mg] 10 mg PO UD 02/18/22 [History Confirmed 03/03/22] Metolazone 2.5 mg [Zaroxolyn 2.5 MG] 2.5 mg PO UD 02/18/22 [History Confirmed 03/03/22] Metoprolol Tartrate 25 mg [Lopressor 25MG Tab] 25 mg PO BID 02/18/22 [History Confirmed 03/03/22] Nitroglycerin 0.4 mg Tablet [Nitrostat 0.4 MG Tablet] 0.4 mg SL UD PRN 02/18/22 [History Confirmed 03/03/22] [place]-3 Fatty Acids/Fish Oil [Fish Oil 1,000 mg Capsule] 1,000 mg PO TID 02/18/22 [History Confirmed 03/03/22] Omeprazole 20 mg PO HS 02/18/22 [History Confirmed 03/03/22] Oxybutynin Chloride 5 mg PO TID 02/18/22 [History Confirmed 03/03/22] Potassium Chloride Tab* [Klor Con] 20 meq PO BID 02/18/22 [History Confirmed 03/03/22] Primidone 50 MG [Mysoline 50Mg] 100 mg PO TID 02/18/22 [History Confirmed 03/03/22] Propylene Glycol/Peg 400/Pf [Systane Ultra 0.4-0.3% Eye Drp] 1 drop DROPS Q6HPRN PRN 02/18/22 [History Confirmed 03/03/22] Psyllium Packet [Metamucil PACKET] 1 pkt PO HS 02/18/22 [History Confirmed 03/03/22] Repaglinide 2 mg PO UD 02/18/22 [History Confirmed 03/03/22] Sertraline HCl 50 mg [Zoloft 50 mg Tablet] 150 mg PO HS 02/18/22 [History Confirmed 03/03/22] Tamsulosin HCl 0.4 mg [Flomax 0.4 MG] 0.4 mg PO HS 02/18/22 [History Confirmed 03/03/22] Tramadol HCl 50 mg [Ultram 50 mg] 50 mg PO Q8H PRN 02/18/22 [History Confirmed 03/03/22] Mineral Oil/Hydrophil Petrolat [Ameriphor Moist Ointment] 113 gm TP HS 03/03/22 [History Confirmed 03/03/22] Tramadol HCl 50 mg [Ultram 50 mg] 50 mg PO BID 03/03/22 [History Confirmed 03/03/22] Azithromycin [Azithromycin 250 mg Pack] 250 mg PO UD #6 tablet 03/07/22 [Rx] Cephalexin Mh 500 mg [Keflex 500 mg] 2 tab PO BID 10 Days #20 cap 03/07/22 [Rx] Methylprednisolone Packet [Medrol Dosepack] 4 mg PO UD #1 packet 03/07/22 [Rx] Allergies/Adverse Reactions: Allergies Allergy/AdvReac Type Severity Reaction Status Date / Time polyurethane Allergy Severe Rash Uncoded 03/03/22 16:19 raw apples Allergy Severe Uncoded 03/03/22 16:19 neoprene Allergy Intermediate Uncoded 03/03/22 16:19 tb tests Allergy Intermediate Uncoded 03/03/22 16:19 bee stings Allergy Unknown Uncoded 03/03/22 16:19 - Past Medical History Past Medical History: Yes Neurological History: Stroke ENT History: Cataracts Cardiac History: Arrhythmia, Congestive Heart Failure, Coronary Artery Disease, Deep Vein Thrombosis, High Cholesterol, Hypertension, Myocardial Infarction ([place]), Other Respiratory History: Asthma, CHF, COPD, Emphysema, Sleep Apnea Endocrine Medical History: Diabetes Type I, Diabetes Type II, Hypothyroidism Musculoskelatal History: Arthritis, Osteoarthritis GI Medical History: Crohns Disease, Diverticulitis, GERD History: Other Pyscho-Social History: Anxiety Male Reproductive Disorders: Other Comment: Patient's medical history taken from previous chart entry. Patient is a poor historian at this time and unable to answer appropriately. - Past Surgical History Past Surgical History: Yes Neuro Surgical History: No Pertinent History Cardiac History: Angioplasty, Cardiac Catheterization, Cardiac Stent, Vascular Surgery, Other Respiratory Surgery: No Pertinent History GI Surgical History: No Pertinent History Genitourinary Surgical Hx: No Pertinent History Musculskeletal Surgical Hx: Amputation Male Surgical History: No Pertinent History Other Surgical History: Patient's surgical history taken from previous chart entry. Patient is a poor historian at this time and unable to answer appropriately. - Social History Smoking Status: Unknown if ever smoked How long have you smoked: 3 years Exposure to second hand smoke: No Alcohol: None Drug Use: none Significant Family History: no pertinent family hx - Physical Exam General Appearance: no apparent distress, alert Neurologic Exam: alert, cooperative, normal mood/affect, nml cerebellar function, sensation nml, No motor deficits Eye Exam: PERRL/EOMI, eyes nml inspection Ears, Nose, Throat Exam: normal ENT inspection, TMs normal, pharynx normal, moist mucous membranes Neck Exam: normal inspection, non-tender, supple, full range of motion Respiratory Exam: normal breath sounds, lungs clear, No respiratory distress Cardiovascular Exam: regular rate/rhythm, normal heart sounds, normal peripheral pulses Gastrointestinal/Abdomen Exam: soft, normal bowel sounds, No tenderness, No mass Back Exam: normal inspection, normal range of motion, No CVA tenderness, No vertebral tenderness Extremity Exam: normal inspection, normal range of motion, pelvis stable Skin Exam: normal color, warm, dry, No rash Lymphatic Exam: No adenopathy Assessment/Plan (1) Altered mental status Status: Acute Code(s): R41.82 - ALTERED MENTAL STATUS, UNSPECIFIED (2) COPD exacerbation Status: Acute Assessment & Plan: supplemental oxygen, iv steroids and iv antibiotics Code(s): J44.1 - CHRONIC OBSTRUCTIVE PULMONARY DISEASE W (ACUTE) EXACERBATION
--- NOTE | 2022-03-18 06:02 | PCM.DS ---
Discharge Summary Date of Admission: 03/04/22 09:00 Date of Discharge: 03/07/2022 Admitting Physician: ADRIAN MCELROY Primary Care Provider: TANNA SAAVEDRA Allergies Allergies polyurethane Allergy (Severe, Uncoded 03/03/22 16:19) Rash raw apples Allergy (Severe, Uncoded 03/03/22 16:19) paralysis neoprene Allergy (Intermediate, Uncoded 03/03/22 16:19) rash tb tests Allergy (Intermediate, Uncoded 03/03/22 16:19) bee stings Allergy (Unknown, Uncoded 03/03/22 16:19) Hospital Summary - Hospital Course Hospital Course: Pt. admitted and initiated with iv steroids and iv antibiotics with oxygen support. Pt. mentation and breathing improved throughout the hospitalization and upon return to baseline was ready for discharge back to [facility]. - Vitals & Intake/Output Vital Signs: Vital Signs Temperature 97.6 F 03/07/22 11:26 Pulse Rate 75 03/07/22 11:26 Respiratory Rate 16 03/07/22 11:26 Blood Pressure 132/63 03/07/22 11:26 O2 Sat by Pulse Oximetry 97 03/07/22 11:26 - Lab Result Diagrams: 03/07/22 04:35 03/07/22 04:35 - Procedures and Test Procedures and Tests throughout Hospitalization: Therapy Orders & Screens 03/03/22 21:44 Respiratory Therapy Assessment DAILY Comment: Diagnosis: copd Discharge Exam General Appearance: no apparent distress, alert Neurologic Exam: alert, cooperative, normal mood/affect, nml cerebellar function, sensation nml, No motor deficits Eye Exam: PERRL, EOMI, eyes nml inspection Ears, Nose, Throat Exam: normal ENT inspection, pharynx normal, moist mucous mem branes Neck Exam: normal inspection, non-tender, supple, full range of motion Respiratory Exam: normal breath sounds, lungs clear, No respiratory distress Cardiovascular Exam: regular rate/rhythm, normal heart sounds Gastrointestinal/Abdomen Exam: soft, No tenderness, No mass Male Genitalia Exam: deferred Rectal Exam: deferred Back Exam: normal inspection, normal range of motion, No CVA tenderness, No vertebral tenderness Extremity Exam: normal inspection, normal range of motion Skin Exam: normal color, warm, dry Final Diagnosis/Problem List - Final Discharge Diagnosis/Problem (1) Altered mental status Status: Acute Code(s): R41.82 - ALTERED MENTAL STATUS, UNSPECIFIED (2) COPD exacerbation Status: Acute Code(s): J44.1 - CHRONIC OBSTRUCTIVE PULMONARY DISEASE W (ACUTE) EXACERBATION - Discharge Discharge Date: 03/07/22 Disposition: DC TO [facility] Condition: Fair Prescriptions: New Azithromycin [Azithromycin 250 mg Pack] 250 mg PO UD #6 tablet Cephalexin Mh 500 mg [Keflex 500 mg] 2 tab PO BID 10 Days #20 cap Methylprednisolone Packet [Medrol Dosepack] 4 mg PO UD #1 packet Continue Tramadol HCl 50 mg [Ultram 50 mg] 50 mg PO Q8H PRN PRN Reason: Pain Propylene Glycol/Peg 400/Pf [Systane Ultra 0.4-0.3% Eye Drp] 1 drop DROPS Q6HPRN PRN PRN Reason: dry eyes Levothyroxine Sodium 75 Mcg [Synthroid 75 Mcg] 75 mcg PO DAILY Sertraline HCl 50 mg [Zoloft 50 mg Tablet] 150 mg PO HS Budesonide/Formoterol Fumarate [Budesonide-Formoterol 160-4.5] 2 puff IH BID Repaglinide 2 mg PO UD Primidone 50 MG [Mysoline 50Mg] 100 mg PO TID Potassium Chloride Tab* [Klor Con] 20 meq PO BID Oxybutynin Chloride 5 mg PO TID Omeprazole 20 mg PO HS Nitroglycerin 0.4 mg Tablet [Nitrostat 0.4 MG Tablet] 0.4 mg SL UD PRN PRN Reason: Chest Pain Metoprolol Tartrate 25 mg [Lopressor 25MG Tab] 25 mg PO BID Metolazone 2.5 mg [Zaroxolyn 2.5 MG] 2.5 mg PO UD Psyllium Packet [Metamucil PACKET] 1 pkt PO HS Loratadine 10 mg [Claritin 10 mg] 10 mg PO UD Lactulose [Lactulose 20 gm/30Ml Ud Cup] 30 ml PO Q12H PRN PRN PRN Reason: bowel care Isosorbide Mononitrate [Isosorbide Mononitrate ER] 60 mg PO DAILY Glipizide 5 mg [Glucotrol 5 MG] 5 mg PO DAILY Folic Acid 1 mg [Folate 1 mg] 1 mg PO DAILY Fluticasone Propionate [Flovent Diskus] 1 spray IH DAILY Tamsulosin HCl 0.4 mg [Flomax 0.4 MG] 0.4 mg PO HS [place]-3 Fatty Acids/Fish Oil [Fish Oil 1,000 mg Capsule] 1,000 mg PO TID Fenofibrate Nanocrystallized [Fenofibrate] 48 mg PO HS Cyanocobalamin 500 Mcg [Vitamin B-12 500 MCG] 1,000 mcg PO DAILY Clopidogrel Bisulfate [Clopidogrel] 75 mg PO DAILY Cholecalciferol (Vitamin D3) [Vitamin D] 1 tab PO DAILY Bumetanide 1 mg [Bumex 1 mg] 2 mg PO DAILY [id number] [Beano] 800 unit PO BID Aspirin EC 81 mg [Ecotrin 81 mg] 81 mg PO DAILY Allopurinol 100 mg [Zyloprim 100 mg] 200 mg PO DAILY Acetaminophen 325 mg [Tylenol 325 mg] 650 mg PO Q4HPRN PRN PRN Reason: pain/temp Tramadol HCl 50 mg [Ultram 50 mg] 50 mg PO BID Mineral Oil/Hydrophil Petrolat [Ameriphor Moist Ointment] 113 gm TP HS Additional Instructions: CHECK A CBC AND BMP ON THURSDAY 1500CC FLUID RESTRICTION SEE ATTACHED MED LIST (3 NEW RX) RESUME PREVIOUS ORDERS Follow up with: TANNA SAAVEDRA [Primary Care Provider] - NAVID RONQUILLO [Family Provider] -
== END 2022-03-07 14:55 | DRG 192 ==
LOC: ED 16:17 → MED SURG 21:57 → OBSVTOIN 03-04 09:00
PROVIDERS: ADMIT Family Medicine; ATTEND Family Medicine
DX: J44.1 Chronic obstructive pulmonary disease with (acute) exacerbation (principal); R41.82 Altered mental status, unspecified; E86.0 Dehydration; E10.9 Type 1 diabetes mellitus without complications; I10 Essential (primary) hypertension; E03.9 Hypothyroidism, unspecified; Z79.899 Other long term (current) drug therapy; Z20.828 Contact with and (suspected) exposure to other viral communicable diseases
CPT/HCPCS: 0241U; 36415; 70551; 71045; 71260; 80048; 80053; 81015; 82607; 82947; 83036; 83540; 83880; 84484; 85025; 85027; 85045; 85046; 85379; 94640; 94760; 99284; G0378; P9604; J0456; J0696; J1817; J2930; J7609; A9270-GY